=== PATIENT | male | born 1935 | race Caucasian/White ===

== ENCOUNTER 2016-07-01 10:06 | Inpatient (IN) | payer MEDICARE, OTHER, MEDICAID ==
[~2016-07-01] VITALS: Ht 172.7 cm; Wt 73.0 kg
[2016-07-01] VITALS (7 sets, daily range): BP systolic 122–174; BP diastolic 49–79
[2016-07-01] MEDS ORDERED: MILK OF MA2400 MG/10 ORAL (10:58)
[2016-07-01] MEDS ORDERED: BISACODYL5 MG ORAL (10:58)
[2016-07-01 11:03] LABS: APPEARANCE,URINE CLEAR; KETONES,URINE 4+ (NEGATIVE); LEUKOCYTE ESTERASE ,URINE 2+ (NEGATIVE); NITRITE,URINE NEGATIVE (NEGATIVE); PH,URINE 6.5 (4.5-8.0); PROTEIN,URINE 1+ (NEGATIVE); UROBILINOGEN,URINE NORMAL MG/DL (0.0-1.0)
[2016-07-01] MEDS ORDERED: ASPIR 8181 MG ORAL (11:05)
[2016-07-01] MEDS ORDERED: PLAVIX75 MG ORAL (11:05)
[2016-07-01] MEDS ORDERED: FAMOTIDINE20 MG ORAL (11:05)
[2016-07-01] MEDS ORDERED: PROBIOTIC ACID1 EAC3 PO (11:05)
[2016-07-01 11:07] LABS: BASOPHILS % (AUTO) 0.6 % (0.0-2.0); EOSINOPHILS % (AUTO) 1.8 % (0.0-3.0); LYMPHOCYTES % (AUTO) 11.6 % (20.0-45.0); MEAN CORPUSCULAR HEMOGLOBIN 30.4 PG (27.0-31.0); MEAN CORPUSCULAR VOLUME 89 FL (80-99); MONOCYTES % (AUTO) 3.7 % (1.0-10.0); NEUTROPHILS % (AUTO) 82.3 % (45.0-75.0); PLATELET COUNT 251 K/UL (150-450); RED CELL DISTRIBUTION WIDTH 12.9 % (11.6-14.8); WHITE BLOOD COUNT 12.8 K/UL (4.8-10.8)
[2016-07-01] MEDS ORDERED: LEVEMIR100 UNIT/1 SUBQ (11:07)
[2016-07-01] MEDS ORDERED: LEVAQUIN750 MG ORAL (11:07)
[2016-07-01] MEDS ORDERED: LATANOPROST2.5 ML BOTH EYES (11:07)
[2016-07-01] MEDS ORDERED: MULTIVITAMINS1 EAC2 ORAL (11:09)
[2016-07-01] MEDS ORDERED: METOPROLOL SUCC25 MG ORAL (11:09)
[2016-07-01] MEDS ORDERED: ZOFRAN4 M3 ORAL (11:09)
[2016-07-01] MEDS ORDERED: MIRTAZAPINE15 MG ORAL (11:09)
[2016-07-01] MEDS ORDERED: TAMSULOSIN HCL0.4 MG ORAL (11:09)
[2016-07-01] MEDS ORDERED: LISINOPRIL10 MG ORAL (11:09)
[2016-07-01] MEDS ORDERED: TYLENOL EXTRA500 MG ORAL (11:09)
[2016-07-01] MEDS ORDERED: ATORVASTATIN CA80 MG ORAL (11:09)
[2016-07-01 11:14] LABS: BACTERIA,URINE FEW /HPF; SQUAMOUS EPITHELIAL CELL,UR OCCASIONAL /LPF (NONE/OCC); WBC,URINE 20-30 /HPF (0 - 0)
[2016-07-01 11:15] LABS: ALANINE AMINOTRANSFERASE 7 U/L (3-41); ALBUMIN/GLOBULIN RATIO 0.7 (1.0-2.7); ANION GAP 18 (5-15); ASPARTATE AMINO TRANSFERASE 24 U/L (5-40); CALCIUM 8.8 mg/dL (8.6-10.2); CARBON DIOXIDE 27 mEQ/L (20-30); CHLORIDE 97 mEQ/L (98-107); CREATININE 0.7 mg/dL (0.7-1.2); HEMOLYSIS 51; POTASSIUM 3.7 mEQ/L (3.4-4.9); SODIUM 142 mEQ/L (135-145); TOTAL PROTEIN 6.5 g/dL (6.6-8.7); TROPONIN I < 0.30 ng/mL (<=0.30)
[2016-07-01 11:25] LABS: CKMB 2.4 ng/mL (< 6.7)
--- NOTE | 2016-07-01 11:30 | Emergency Room Report ---
History of Present Illness General Chief Complaint: Abnormal Labs Source: Patient, Medical Record Present Illness HPI Patient is a 81-year-old male who is brought in by ambulance after abnormal laboratory values. Patient recently been treated for a prostate infection. Patient was noted to have elevated white blood count was sent in for further evaluation. Patient normally resides in a detention the patient has some baseline dementia and history markedly limited by patient's poor mental status. Allergies: Coded Allergies: No Known Allergies (Unverified , 07/01/16) Patient History Reviewed Nursing Documentation: PMH: Agreed, PSxH: Agreed Nursing Documentation-PMH Past Medical History: No History, Except For Hx Cardiac Problems: Yes - prostatic abcess, bacteremia 2 Review of Systems All Other Systems: limited - by mental statu Physical Exam Vital Signs Date Time Temp Pulse Resp B/P Pulse Ox O2 Delivery O2 Flow Rate FiO2 07/01/16 10:08 97.5 82 16 148/64 95 Room Air Sp02 EP Interpretation: reviewed, normal General Appearance: normal inspection, well appearing, no apparent distress, alert, non-toxic Head: atraumatic ENT: normal ENT inspection, hearing grossly normal, normal voice Neck: normal inspection, full range of motion, supple, no bony tend Respiratory: normal inspection, lungs clear, normal breath sounds, no respiratory distress, no retraction, no wheezing Cardiovascular #1: regular rate, rhythm, no edema Gastrointestinal: normal inspection, normal bowel sounds, non tender, soft, no guarding, no hernia Genitourinary: no CVA tenderness Musculoskeletal: normal inspection, back normal, normal range of motion Neurologic: normal inspection, alert, responsive, swedish masseuse III-XII nml as tested, speech normal, motor weakness - bilateral lower extremity, sensory deficit Psychiatric: normal inspection, judgement/insight normal, mood/affect normal Skin: other - ulcers to both leg, left heal ulcer dark Medical Decision Making Diagnostic Impression: Primary Impression: Urinary tract infection Additional Impressions: Prostatic disease Failure to thrive ER Course The patient presented for decreased oral intake as well as abnormal lab value. The differential diagnosis included was not limited to a recurrent infection, CVA, others. The patient had recently been treated with IV Levaquin for prostatic abscess. Because of complexity of patient's case laboratory testing and imaging studies were ordered. The patient was noted to have elevated white blood count on laboratory testing. EKG interpreted by me showed normal sinus rhythm with a rate of [address] EKG interpreted by me showed anteroseptal T-wave inversion. Laboratory testing was notable for elevated white blood count. The patient started on IV antibiotics. This was noted to have a prolonged QT interval and antibiotics and subsequently changed to RocephinDr. Belem was contacted for Dr. Torres for inpatient management. Labs Test 07/01/16 10:40 White Blood Count 12.8 K/UL (4.8-10.8) Red Blood Count 4.20 M/UL (4.70-6.10) Hemoglobin 12.8 G/DL (14.2-18.0) Hematocrit 37.6 % (42.0-52.0) Mean Corpuscular Volume 89 FL (80-99) Mean Corpuscular Hemoglobin 30.4 PG (27.0-31.0) Mean Corpuscular Hemoglobin Concent 34.0 G/DL (32.0-36.0) Red Cell Distribution Width 12.9 % (11.6-14.8) Platelet Count 251 K/UL (150-450) Mean Platelet Volume 8.0 FL (6.5-10.1) Neutrophils (%) (Auto) 82.3 % (45.0-75.0) Lymphocytes (%) (Auto) 11.6 % (20.0-45.0) Monocytes (%) (Auto) 3.7 % (1.0-10.0) Eosinophils (%) (Auto) 1.8 % (0.0-3.0) Basophils (%) (Auto) 0.6 % (0.0-2.0) Urine Color Pale yellow Urine Appearance Clear Urine pH 6.5 (4.5-8.0) Urine Specific [place] 1.010 (1.005-1.035) Urine Protein 1+ (NEGATIVE) Urine Glucose (UA) Negative (NEGATIVE) Urine Ketones 4+ (NEGATIVE) Urine Occult Blood 1+ (NEGATIVE) Urine Nitrite Negative (NEGATIVE) Urine Bilirubin Negative (NEGATIVE) Urine Urobilinogen Normal MG/DL (0.0-1.0) Urine Leukocyte Esterase 2+ (NEGATIVE) Urine RBC 2-4 /HPF (0 - 0) Urine WBC 20-30 /HPF (0 - 0) Urine Squamous Epithelial Cells Occasional /LPF Urine Bacteria Few /HPF (NONE) Sodium Level 142 mEQ/L (135-145) Potassium Level 3.7 mEQ/L (3.4-4.9) Chloride Level 97 mEQ/L (98-107) Carbon Dioxide Level 27 mEQ/L (20-30) Anion Gap 18 (5-15) Blood Urea Nitrogen 11 mg/dL (7-23) Creatinine 0.7 mg/dL (0.7-1.2) Estimat Glomerular Filtration Rate mL/min (>60) Glucose Level 110 mg/dL (74-106) Lactic Acid Level 1.30 mmol/L (0.66-2.22) Calcium Level 8.8 mg/dL (8.6-10.2) Total Bilirubin 0.8 mg/dL (0.0-1.2) Aspartate Amino Transf (AST/SGOT) 24 U/L (5-40) Alanine Aminotransferase (ALT/SGPT) 7 U/L (3-41) Alkaline Phosphatase 104 U/L (40-129) Total Creatine Kinase 25 U/L (38-174) Creatine Kinase MB 2.4 ng/mL (< 6.7) Creatine Kinase MB Relative Index 9.6 Troponin I < 0.30 ng/mL (<=0.30) Total Protein 6.5 g/dL (6.6-8.7) Albumin 2.7 g/dL (3.5-5.2) Globulin 3.8 g/dL Albumin/Globulin Ratio 0.7 (1.0-2.7) Last Vital Signs Date Time Temp Pulse Resp B/P Pulse Ox O2 Delivery O2 Flow Rate FiO2 07/01/16 11:13 97.5 70 21 152/56 95 Room Air Status: unchanged Disposition: ADMITTED INPATIENT Condition: Serious Referrals: TANYA FARMER (PCP) Anders Kaufman Jul 01, 2016 11:30
--- NOTE | 2016-07-01 11:42 | Diagnostic Imaging Report ---
Clinical history: Shortness of breath Technique: Portable AP chest radiograph was obtained. Comparison: None Findings: Lung volumes are low with probable basilar atelectasis. There is borderline cardiomegaly with interstitial and perihilar opacities reflecting mild pulmonary edema. Trace effusions may be present. There is no clinically significant pneumothorax. Osseous structures appear grossly unremarkable. Impression: 1. Borderline cardiomegaly with suspected mild pulmonary edema and trace effusions. 2. Low lung volumes with probable basilar atelectasis.
[2016-07-01] MEDS ORDERED: cefTRIAXone 1 GM in NS 55 ML IVPB ONE (14:15)
[2016-07-01] MEDS ORDERED: DuoNeb 0.5-3(2.5)mg/3ml neb HHN PRN (16:15)
[2016-07-01] MEDS ORDERED: Miralax 17gm pkt ORAL PRN (16:15)
--- NOTE | 2016-07-01 16:39 | History and Physical ---
History of Present Illness General Date patient seen: Jul 02, 2016 Time patient seen: 16:39 Reason for Hospitalization: Abnormal Labs, poor PO intake, nausea, lethargy Present Illness HPI 81y/o male with pmh of CVA, DM, GERD, HTN, PVD, recent prostate abscess s/p IR drainage 06/23 c/b bacteremia 2/2 Klebsiella (on Cipro PO at [facility]) who presented to the hospital from SNF with lethargy, nausea, poor PO intake and abnormal labs. Pt recently admitted to [facility] 06/20-06/27 for severe sepsis 2/2 prostate abscess c/b Klebisella bacteremia. He underwent transrectal guided aspiration of the prostatic abscess on 06/23/16 and 10cc of tenacious fluid was aspirated that grew K pna and Enterococcus. Blood cultures grew 4/4 bottles w/ Klebsiella sensitive to cipro, bactrim, ceftriaxone. Pt was on cipro IV at [facility] and then transitioned to cipro PO on d/c to complete 2 weeks of antibiotics. Pt was d/c' d with new. Pt was noted to to be increasingly lethargic over the past few days and was not eating per SNF staff. He also c/o nausea. Labs done noteable for WBC 17. In ED, pt's WBC was 12.8 and she was noted to have EKG with QT prolongation. She was given ceftriaxone 1g in ED. Allergies: Coded Allergies: No Known Allergies (Unverified , 07/01/16) Medication History Scheduled Aspirin* (Aspir 81*), 81 MG ORAL DAILY, (Reported) Atorvastatin Calcium* (Lipitor*), 80 MG ORAL BEDTIME, (Reported) Clopidogrel Bisulfate* (Plavix*), 75 MG ORAL DAILY, (Reported) Famotidine (Famotidine), 20 MG ORAL DAILY, (Reported) Insulin Detemir (Levemir), 18 UNITS SUBQ BEDTIME, (Reported) Lactobacillus Acidophilus (Probiotic Acidophilus), 1 EACH PO DAILY, (Reported) Latanoprost* (Xalatan*), 1 DROP BOTH EYES BEDTIME, (Reported) Lisinopril* (Lisinopril*), 10 MG ORAL DAILY, (Reported) Metoprolol Succinate* (Metoprolol Succinate*), 25 MG ORAL DAILY, (Reported) Mirtazapine* (Remeron*), 15 MG ORAL BEDTIME, (Reported) Multivitamins* (Multivitamins*), 1 TAB ORAL DAILY, (Reported) Tamsulosin Hcl (Tamsulosin Hcl*), 0.4 MG ORAL BEDTIME, (Reported) Scheduled PRN Acetaminophen* (Tylenol Extra Strength*), 650 MG ORAL Q6H PRN for Mild Pain/ Temp > 100.5, (Reported) Bisacodyl* (Dulcolax*), 10 MG ORAL ONCE PRN for Constipation, (Reported) Magnesium Hydroxide* (Milk Of Magnesia*), 30 ML ORAL DAILY PRN for Constipation, (Reported) Ondansetron* (Zofran*), 4 MG ORAL Q6H PRN for Nausea & Vomiting, (Reported) Discontinued Medications Levofloxacin* (Levaquin*), 750 MG ORAL DAILY, (Reported) Discontinued Reason: MD discontinued med Patient History History Provided By: Family Member Healthcare decision maker DPOA is niece Resuscitation status Advanced Directive on File Past Medical/Surgical History Past Medical/Surgical History: (1) CAD (coronary artery disease) (2) Percutaneous transluminal coronary angioplasty (PTCA) within last 14 to 24 months (3) NSTEMI (non-ST elevated myocardial infarction) (4) Diabetes mellitus (5) PVD (peripheral vascular disease) (6) CVA (cerebral vascular accident) (7) Prostate abscess (8) Bacteremia due to Klebsiella pneumoniae (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 Social History Social History: (1) Resides in senior care facility Review of Systems Constitutional: Reports: weakness ENT: Reports: no symptoms Respiratory: Reports: no symptoms Cardiovascular: Reports: no symptoms Gastrointestinal: Reports: nausea Genitourinary: Reports: no symptoms Musculoskeletal: Reports: no symptoms Skin: Reports: no symptoms Psychiatric: Reports: no symptoms Neurological: Reports: no symptoms Endocrine: Reports: no symptoms Hematologic/Lymphatic: Reports: no symptoms Physical Exam Physical Exam Narrative General: alert, cooperative, no distress, appears stated age, lethargic Head: normocephalic, without obvious abnormality, atraumatic Eyes: conjunctivae/corneas clear. PERRL, EOM's intact Throat: lips, mucosa, and tongue normal. MMM Neck: supple, symmetrical, trachea midline, and no JVD Lungs: clear to auscultation bilaterally Heart: regular rate and rhythm, S1, S2 normal, no murmur, click, rub or gallop Abdomen: soft, non-tender, non-distended, bowel sounds normal; no masses or organomegaly Extremities: Warm, well-perfused. L heel eschar, dry, no surrounding erythema. R hallux eschar, dry, no erythema. R foot weak biphasic DP, moderate biphasic PT; L foot triphasic DP, biphasic PT Skin: skin color, texture, turgor normal; no rashes or lesions Neurologic: grossly normal, no focal deficits Last 24 Hour Vital Signs Date Time Temp Pulse Resp B/P Pulse Ox O2 Delivery O2 Flow Rate FiO2 07/01/16 15:09 97.3 80 20 145/62 98 Room Air 07/01/16 12:40 97.5 76 20 174/66 98 Room Air 07/01/16 11:13 97.5 70 21 152/56 95 Room Air 07/01/16 10:08 97.5 82 16 148/64 95 Room Air Laboratory Tests Test 07/01/16 10:40 White Blood Count 12.8 K/UL (4.8-10.8) H Red Blood Count 4.20 M/UL (4.70-6.10) L Hemoglobin 12.8 G/DL (14.2-18.0) L Hematocrit 37.6 % (42.0-52.0) L Mean Corpuscular Volume 89 FL (80-99) Mean Corpuscular Hemoglobin 30.4 PG (27.0-31.0) Mean Corpuscular Hemoglobin Concent 34.0 G/DL (32.0-36.0) Red Cell Distribution Width 12.9 % (11.6-14.8) Platelet Count 251 K/UL (150-450) Mean Platelet Volume 8.0 FL (6.5-10.1) Neutrophils (%) (Auto) 82.3 % (45.0-75.0) H Lymphocytes (%) (Auto) 11.6 % (20.0-45.0) L Monocytes (%) (Auto) 3.7 % (1.0-10.0) Eosinophils (%) (Auto) 1.8 % (0.0-3.0) Basophils (%) (Auto) 0.6 % (0.0-2.0) Urine Color Pale yellow Urine Appearance Clear Urine pH 6.5 (4.5-8.0) Urine Specific [place] 1.010 (1.005-1.035) Urine Protein 1+ (NEGATIVE) H Urine Glucose (UA) Negative (NEGATIVE) Urine Ketones 4+ (NEGATIVE) H Urine Occult Blood 1+ (NEGATIVE) H Urine Nitrite Negative (NEGATIVE) Urine Bilirubin Negative (NEGATIVE) Urine Urobilinogen Normal MG/DL (0.0-1.0) Urine Leukocyte Esterase 2+ (NEGATIVE) H Urine RBC 2-4 /HPF (0 - 0) H Urine WBC 20-30 /HPF (0 - 0) H Urine Squamous Epithelial Cells Occasional /LPF Urine Bacteria Few /HPF (NONE) Sodium Level 142 mEQ/L (135-145) Potassium Level 3.7 mEQ/L (3.4-4.9) Chloride Level 97 mEQ/L (98-107) L Carbon Dioxide Level 27 mEQ/L (20-30) Anion Gap 18 (5-15) H Blood Urea Nitrogen 11 mg/dL (7-23) Creatinine 0.7 mg/dL (0.7-1.2) Estimat Glomerular Filtration Rate mL/min (>60) Glucose Level 110 mg/dL (74-106) H Lactic Acid Level 1.30 mmol/L (0.66-2.22) Calcium Level 8.8 mg/dL (8.6-10.2) Total Bilirubin 0.8 mg/dL (0.0-1.2) Aspartate Amino Transf (AST/SGOT) 24 U/L (5-40) Alanine Aminotransferase (ALT/SGPT) 7 U/L (3-41) Alkaline Phosphatase 104 U/L (40-129) Total Creatine Kinase 25 U/L (38-174) L Creatine Kinase MB 2.4 ng/mL (< 6.7) Creatine Kinase MB Relative Index 9.6 Troponin I < 0.30 ng/mL (<=0.30) Total Protein 6.5 g/dL (6.6-8.7) L Albumin 2.7 g/dL (3.5-5.2) L Globulin 3.8 g/dL Albumin/Globulin Ratio 0.7 (1.0-2.7) L Height (Feet): 5 Height (Inches): 8.00 Weight (Pounds): 161 Medications Current Medications Medications (Trade) Dose Ordered Sig/Jose Armando Route PRN Reason Start Time Stop Time Status Last Admin Dose Admin Albuterol/ Ipratropium (DuoNeb 0.5-3(2.5)mg/3ml) 3 ml Q4H PRN HHN Shortness of Breath 07/01/16 16:15 07/06/16 16:14 UNV Bisacodyl (Dulcolax) 10 mg HSPRN PRN RECTAL Constipation 07/01/16 16:15 07/31/16 16:14 UNV Dextrose (Dextrose 50%) STAT PRN IV Hypoglycemia 07/01/16 16:15 07/31/16 16:14 UNV Docusate Sodium (Colace) 100 mg EVERY 12 HOURS ORAL 07/01/16 21:00 07/31/16 20:59 UNV Ondansetron HCl (Zofran) 4 mg Q6H PRN IVP Nausea & Vomiting 07/01/16 16:15 07/31/16 16:14 UNV Polyethylene Glycol (Miralax) 17 gm HSPRN PRN ORAL Constipation 07/01/16 16:15 07/31/16 16:14 UNV Assessment/Plan Problem List: (1) Sepsis ICD Codes: A41.9 - Sepsis, unspecified organism SNOMED: 37557913 (2) Prostate abscess ICD Codes: N41.2 - Abscess of prostate SNOMED: 9331150 (3) Bacteremia due to Klebsiella pneumoniae ICD Codes: R78.81 - Bacteremia SNOMED: 600707591, 396941312932 (4) Failure to thrive SNOMED: 57372162 (5) Toxic metabolic encephalopathy ICD Codes: G92 - Toxic encephalopathy SNOMED: 999621468 (6) CAD (coronary artery disease) ICD Codes: I25.10 - Atherosclerotic heart disease of [place] coronary artery without angina pectoris SNOMED: 58061898 (7) Percutaneous transluminal coronary angioplasty (PTCA) within last 14 to 24 months ICD Codes: Z98.61 - Coronary angioplasty status SNOMED: 758298049 (8) Diabetes mellitus ICD Codes: E11.9 - Type 2 diabetes mellitus without complications SNOMED: 41076119 Qualifiers: (9) 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 ICD Codes: L97.423 - Non-pressure 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 SNOMED: 372386137, 593614729, 825963322 Status: stable Assessment/Plan Possibly worsening symptoms and leukocytosis as pt with poor PO intake and nausea, possibly was not taking cipro PO Admit to inpatient ID Consult Stop Cipro given QT prolongation and pt c/o nausea w/ cipro PO Start ceftriaxone 2g q24h (07/02-) Consider re-imaging if pt clinically deteriorates Cont SNF meds: ASA, plavix, statin, lisinopril, MTP Forestry Pilot consult EXAMINER RATING CLERK eval Monitor mental status closely DVT Prophylaxis: SCD, HSQ Code Status: Full Hospital Classification Declaration: Based on this initial evaluation, and depending on the patient's clinical course, I anticipate that this patient will require hospitalization for 2-3 days for sepsis, AMS, and close respiratory/ hemodynamic monitoring. Disposition: Once the patient is stable to leave the hospital, I anticipate the patient will likely be discharged to the following environment: back to SNF I spent 70 minutes on this patient's case, and 38 minutes were dedicated to counseling and/or care coordination. Discussed with patient/family, nursing staff, SW/CM, ID regarding clinical status, treatment course, and disposition planning. Time of note may not reflect time of encounter. Bharat Castle M.D. Jul 01, 2016 16:39
[2016-07-01] MEDS: Docusate 100mg tablet ORAL SCH (21:50)
[2016-07-01] MEDS: Tamsulosin 0.4mg cap ORAL SCH (21:51)
[2016-07-01] MEDS: Atorvastatin 80mg tab ORAL SCH (21:51)
[2016-07-01] MEDS: NovoLOG Insulin Flexpen SUBQ SCH (22:34)
[2016-07-02] VITALS: BP 143/73
[2016-07-02 04:00] VITALS: BP 149/70
[2016-07-02] MEDS: NovoLOG Insulin Flexpen SUBQ SCH ×4 (05:52→21:00)
[2016-07-02 08:00] VITALS: BP 120/59
[2016-07-02 08:21] LABS: ANION GAP 19 (5-15); CALCIUM 8.5 mg/dL (8.6-10.2); CARBON DIOXIDE 24 mEQ/L (20-30); CHLORIDE 99 mEQ/L (98-107); CREATININE 0.7 mg/dL (0.7-1.2); HEMOLYSIS 16; MAGNESIUM 1.8 mg/dL (1.7-2.5); POTASSIUM 3.2 mEQ/L (3.4-4.9); SODIUM 142 mEQ/L (135-145)
[2016-07-02 09:02] LABS: BASOPHILS % (AUTO) 0.4 % (0.0-2.0); EOSINOPHILS % (AUTO) 2.5 % (0.0-3.0); LYMPHOCYTES % (AUTO) 12.4 % (20.0-45.0); MEAN CORPUSCULAR HEMOGLOBIN 30.2 PG (27.0-31.0); MEAN CORPUSCULAR HGB CONC 33.9 G/DL (32.0-36.0); MEAN CORPUSCULAR VOLUME 89 FL (80-99); MEAN PLATELET VOLUME 8.2 FL (6.5-10.1); MONOCYTES % (AUTO) 4.3 % (1.0-10.0); NEUTROPHILS % (AUTO) 80.3 % (45.0-75.0); PLATELET COUNT 258 K/UL (150-450); RED BLOOD COUNT 3.83 M/UL (4.70-6.10); WHITE BLOOD COUNT 10.6 K/UL (4.8-10.8)
[2016-07-02] MEDS: Docusate 100mg tablet ORAL SCH ×2 (10:30→21:08)
[2016-07-02] MEDS: Aspirin EC 81mg tab ORAL SCH (10:30)
[2016-07-02] MEDS: Lisinopril 10mg tab ORAL SCH (10:31)
[2016-07-02 12:00] VITALS: BP 139/62
--- NOTE | 2016-07-02 15:18 | Infectious Diseases Prog Note ---
Assessment/Plan Assessment/Plan Full consult dictated: A) 1) klebsiella prostate abscess and bacteremia 2) high likelihood of underlying bacterial prostatitis 3) sepsis, leukocytosis, ? uti, + ua but urine culture negative, ftt, encephalopathy 4) cad, dementia, stent, htn, dm, anemia 5) allergies - negative, fh-nc, mar noted, notes and records reviewed 6) d/w RN P) 1) continue ceftriaxone for now (patient was on po cipro but had QT prolongation and held) 2) will review records at [facility] 3) continue treatment per Dr. Nicholson 4) check labs and surveillance blood cultures 5) orders entered and noted 6) d/w Dr. Nicholson 7) thank you Subjective Allergies: Coded Allergies: No Known Allergies (Unverified , 07/01/16) Objective Vital Signs Last 24 Hour Vital Signs Date Time Temp Pulse Resp B/P Pulse Ox O2 Delivery O2 Flow Rate FiO2 07/02/16 12:00 97.9 90 20 139/62 94 Room Air 07/02/16 10:31 89 140/63 07/02/16 10:31 140/63 07/02/16 08:00 97.5 87 19 120/59 97 Room Air 07/02/16 04:00 98.6 84 18 149/70 97 Room Air 07/02/16 00:00 97.7 88 20 143/73 97 Room Air 07/01/16 23:08 97.7 96 16 159/79 98 Room Air 07/01/16 22:11 97.3 76 15 122/49 98 Room Air 76 07/01/16 22:10 97.3 72 15 129/69 98 Room Air 07/01/16 20:11 97.3 76 15 122/49 98 Room Air 76 07/01/16 17:19 97.3 76 12 152/64 98 Room Air 69 07/01/16 15:09 97.3 80 20 145/62 98 Room Air Height (Feet): 5 Height (Inches): 8.00 Weight (Pounds): 161 Microbiology Date/Time Source Procedure Growth Status 07/01/16 10:40 Urine,Clean Catch Urine Culture - Preliminary NO GROWTH Resulted Laboratory Tests Test 07/02/16 05:35 07/02/16 08:35 Sodium Level 142 mEQ/L (135-145) Potassium Level 3.2 mEQ/L (3.4-4.9) L Chloride Level 99 mEQ/L (98-107) Carbon Dioxide Level 24 mEQ/L (20-30) Anion Gap 19 (5-15) H Blood Urea Nitrogen 9 mg/dL (7-23) Creatinine 0.7 mg/dL (0.7-1.2) Estimat Glomerular Filtration Rate mL/min (>60) Glucose Level 79 mg/dL (74-106) Calcium Level 8.5 mg/dL (8.6-10.2) L Magnesium Level 1.8 mg/dL (1.7-2.5) White Blood Count 10.6 K/UL (4.8-10.8) Red Blood Count 3.83 M/UL (4.70-6.10) L Hemoglobin 11.6 G/DL (14.2-18.0) L Hematocrit 34.2 % (42.0-52.0) L Mean Corpuscular Volume 89 FL (80-99) Mean Corpuscular Hemoglobin 30.2 PG (27.0-31.0) Mean Corpuscular Hemoglobin Concent 33.9 G/DL (32.0-36.0) Red Cell Distribution Width 13.0 % (11.6-14.8) Platelet Count 258 K/UL (150-450) Mean Platelet Volume 8.2 FL (6.5-10.1) Neutrophils (%) (Auto) 80.3 % (45.0-75.0) H Lymphocytes (%) (Auto) 12.4 % (20.0-45.0) L Monocytes (%) (Auto) 4.3 % (1.0-10.0) Eosinophils (%) (Auto) 2.5 % (0.0-3.0) Basophils (%) (Auto) 0.4 % (0.0-2.0) Current Medications Medications (Trade) Dose Ordered Sig/Jose Armando Route PRN Reason Start Time Stop Time Status Last Admin Dose Admin Acetaminophen (Tylenol) 650 mg Q6H PRN ORAL Mild Pain/Temp > 100.5 07/01/16 16:45 07/31/16 16:44 Albuterol/ Ipratropium (DuoNeb 0.5-3(2.5)mg/3ml) 3 ml Q4H PRN HHN Shortness of Breath 07/01/16 16:15 07/06/16 16:14 Aspirin (Ecotrin) 81 mg DAILY ORAL 07/02/16 09:00 08/01/16 08:59 07/02/16 10:30 Atorvastatin Calcium (Lipitor) 80 mg BEDTIME ORAL 07/01/16 21:00 07/31/16 20:59 07/01/16 21:51 Bisacodyl (Dulcolax) 10 mg HSPRN PRN RECTAL Constipation Second Line Agent 07/01/16 16:15 07/31/16 16:14 Ceftriaxone Sodium 1 gm/ Sodium Chloride 55 ml @ 110 mls/hr Q24HRS IVPB 07/02/16 16:00 07/08/16 15:59 Clopidogrel Bisulfate (Plavix) 75 mg DAILY ORAL 07/02/16 09:00 08/01/16 08:59 07/02/16 10:30 Dextrose STAT PRN IV Hypoglycemia 07/01/16 17:00 07/31/16 16:59 Docusate Sodium (Colace) 100 mg EVERY 12 HOURS ORAL 07/01/16 21:00 07/31/16 20:59 07/02/16 10:30 Insulin Aspart (NovoLOG) BEFORE MEALS AND HS SUBQ 07/01/16 22:00 07/31/16 21:59 Latanoprost (Xalatan) 1 drop BEDTIME BOTH EYES 07/01/16 22:00 07/31/16 21:59 07/01/16 22:34 Lisinopril (Zestril) 10 mg DAILY ORAL 07/02/16 09:00 08/01/16 08:59 07/02/16 10:31 Metoprolol Succinate (Toprol XL) 25 mg DAILY ORAL 07/02/16 09:00 08/01/16 08:59 07/02/16 10:31 Mirtazapine (Remeron) 15 mg BEDTIME ORAL 07/01/16 21:00 07/31/16 20:59 07/01/16 21:50 Multivitamins (Multivitamins) 1 tab DAILY ORAL 07/02/16 09:00 08/01/16 08:59 07/02/16 10:30 Ondansetron HCl (Zofran) 4 mg Q6H PRN IVP Nausea & Vomiting 07/01/16 16:15 07/31/16 16:14 Pantoprazole (Protonix) 40 mg ACBREAKFAST ORAL 07/02/16 06:30 08/01/16 06:29 07/02/16 05:52 Polyethylene Glycol (Miralax) 17 gm HSPRN PRN ORAL Constipation First Line Agent 07/01/16 16:15 07/31/16 16:14 Potassium Chloride (KCl 10mEq/100ml Premix) 100 ml @ 100 mls/hr Q1H IVPB 07/02/16 15:00 07/02/16 18:59 07/02/16 15:02 Tamsulosin HCl (Flomax) 0.4 mg BEDTIME ORAL 07/01/16 21:00 07/31/16 20:59 07/01/16 21:51 ARLIN TRIANA Jul 02, 2016 15:18
[2016-07-02 16:00] VITALS: BP 143/60
[2016-07-02] MEDS ORDERED: cefTRIAXone 1 GM in NS 55 ML IVPB SCH (16:00)
[2016-07-02 16:48] VITALS: BP 143/60
[2016-07-02] MEDS: Atorvastatin 80mg tab ORAL SCH (21:08)
[2016-07-02] MEDS: Tamsulosin 0.4mg cap ORAL SCH (21:08)
[2016-07-03] VITALS: BP 150/67
--- NOTE | 2016-07-03 02:19 | Consultation ---
DATE OF CONSULTATION: 07/02/2016 INFECTIOUS DISEASE CONSULTATION CONSULTING PHYSICIAN: Monique Nielson M.D. ATTENDING PHYSICIAN: Jacinda Lozano M.D. I was asked by Dr. Nicholson, Dr. Lozano's associate to see this patient. REASON FOR CONSULTATION: Possible sepsis, leukocytosis, history of Klebsiella, prostate, abscess, and bacteremia. CHIEF COMPLAINT: Sepsis. HISTORY OF PRESENT ILLNESS: This is an 81-year-old male, who was at [facility] and had a Klebsiella bacteremia and prostate abscess treated. I do not have any further records, but in discussion with Dr. Nicholson, the patient had drainage of the abscess by Interventional Radiology. The patient was sent to a jail on Cipro. The patient was then admitted to [facility] with failure to thrive, encephalopathy, and sepsis. The patient's white count was elevated at 12.8. He had altered mental status, encephalopathy, and failure to thrive. Infectious Disease consultation was requested for further antibiotic management for this patient. The patient had a positive urinalysis but urine culture was negative. However, he was on antibiotics prior to admission. The patient was on Cipro, this was discontinued because of QT prolongation and was switched to Rocephin, also in response to discussion with Dr. Nicholson. Infectious Disease consultation was requested for further antibiotic management. MAR was noted. Orders were noted. Notes were reviewed. Case was discussed with RN also. REVIEW OF SYSTEMS: Constitutional: The patient has a Heart. I do not believe he has a central line. He has generalized weakness and fatigue. No fevers or chills. He has failure to thrive. Decreased oral intake and encephalopathy. Head And Neck: No thrush or dysphagia. Cardiac: No chest pain. Gastrointestinal: No nausea, vomiting, or diarrhea. Genitourinary: He has a Heart. Pulmonary: No congestion or shortness of breath. Skin: No rash or itching. Extremities: No extremity pain. Neurologic: No seizures. PAST MEDICAL HISTORY: The patient's past medical history includes the following: The patient has a past medical history of Klebsiella prostate abscess and bacteremia status post drainage. He has a history of CAD, history of stent placement, history of dementia, history of hypertension, history of diabetes, history of anemia. Please see past medical history in medical order. He has a history of hyperlipidemia also, but I am not sure of this. ALLERGIES: No known drug allergies. FAMILY HISTORY: Noncontributory. Negative for exposure to tuberculosis or cancer. SOCIAL HISTORY: Past smoker, but does not smoke now. No alcohol or drug abuse. MEDICATIONS: Upon reviewing the MAR, the patient is on the following medications: He is on Rocephin, potassium chloride, aspirin, Plavix, Zestril, metoprolol, multivitamins, Protonix, Xalatan, NovoLog insulin. He is on Colace, Lipitor, Remeron, Flomax, Tylenol, albuterol treatment, bisacodyl, Colace, MiraLAX, and Zofran. Please see medications in the medical order. PHYSICAL EXAMINATION: VITAL SIGNS: Temperature 97.9 degrees, pulse rate 90, respiratory rate 20, blood pressure 139/62 and saturation 94%. Pulse rate has been as high as 96, respiratory rate as high as 21. GENERAL: Alert and responsive. Generalized weakness noted. HEAD AND NECK: Oral exam, no thrush. Eye exam, no icterus. Neck is supple. No JVD. No sinus tenderness. Normocephalic. No facial droop. No neck stiffness. HEART: Regular. No gallop or murmur. No friction or rub. LUNGS: Clear. Bilateral no rhonchi or rales. ABDOMEN: Soft. Positive bowel sounds. Nontender. SKIN: No rash or dermatitis. MUSCULOSKELETAL: No effusions or contractures. Legs are without cellulitis. PERIPHERAL VASCULAR: No cyanosis or gangrene. RECTAL: Deferred. GENITOURINARY: He has a Heart. Urine is slightly cloudy. LINES: Line sites are without phlebitis. NEUROLOGIC: Generalized weakness. Responsive. LABORATORY DATA: Laboratory as follows, creatinine 0.7, white count 10.6, hemoglobin 0.6, white count as high as 12.8. IMAGING STUDIES: Chest x-ray shows no evidence of pneumonia, shows edema and effusions. No consolidations. Shows atelectasis also. Blood cultures are pending. Urine cultures are negative. UA had 2+ leukocyte esterase, 20 to 30 white blood cells. Discussed with Dr. Nicholson outside blood cultures and Klebsiella, but I will review the records at [facility]. ASSESSMENT AND PLAN: 1. The patient has Klebsiella prostate abscess and bacteremia and likely sepsis with elevated white count, failure to thrive, encephalopathy. The patient was on Cipro, but this was discontinued because of QT prolongation and risk for arrhythmia. The patient will be placed on Rocephin 2 g IV q. 24 hours. I do not know how long the patient on antibiotics, but I think it has been at least one week. If he has underlying prostatitis, which is very likely, then the patient will need prolonged treatment of six weeks of therapy. We will give another week of IV Rocephin, so he could have at least two weeks of IV antibiotics especially in view of bacteremia and sepsis. Check urine and blood cultures. Continue Rocephin now. Check for all labs. Unclear if the patient has urinary tract infection. He has positive urinalysis and this could be related to prostatitis and he has been on antibiotics prior to urine culture. Again, with the prostate abscess, must consider underlying bacterial prostatitis also. 2. The patient has coronary artery disease. 3. Dementia. 4. Stent placement for coronary artery disease. 5. Hypertension. 6. Diabetes. 7. Anemia. 8. Hyperlipidemia. 9. No known allergies. 10. Past smoker. He has quit at this time. 11. Family history noncontributory. 12. MAR noted. 13. Case discussed with RN. 14. Notes were reviewed. 15. Case was discussed with Dr. Nicholson and consultants. Monique Nielson M.D. DR: STEPHANIE JOB#: [id number] CC:
[2016-07-03 04:00] VITALS: BP 146/60
[2016-07-03] MEDS: NovoLOG Insulin Flexpen SUBQ SCH ×4 (05:43→21:32)
[2016-07-03] MEDS: Docusate 100mg tablet ORAL SCH ×2 (11:06→21:26)
[2016-07-03] MEDS: Lisinopril 10mg tab ORAL SCH (11:07)
[2016-07-03] MEDS: Aspirin EC 81mg tab ORAL SCH (11:09)
[2016-07-03 11:34] VITALS: BP 130/55
--- NOTE | 2016-07-03 12:41 | Wound Care Consultation ---
Wound Assessment Wound Assessment #1: Wound Number: #1 Wound Present on Admission: Yes New Wound: No Status Change of Wound: No Wound Location Body Site Modif: left Wound Location Body Site: heel Wound Type: pressure ulcer Abi Test: Does not Abi Pressure Ulcer Stage: IV/unstageable Wound Thickness: Full Thickness Wound Length: 3.5 Wound Width: 4.5 Wound Depth: utd Percent of Wound Black/Brown: 100 Wound Drainage Amount: None Wound Drainage Odor: None/Absent Tissue Surrounding Wound: Erythemic Wound General Appearance: Reddened, Blackened, Necrotic Wound Assessment #2: Wound Number: #2 Wound Present on Admission: Yes New Wound: No Status Change of Wound: No Wound Location Body Site Modif: mid Wound Location Body Site: sacral Wound Type: pressure ulcer Abi Test: Does not Abi Pressure Ulcer Stage: deep tissue injury Wound Thickness: Full Thickness Wound Length: 4.0 Wound Width: 4.0 Wound Depth: utd Percent of Wound Hungry Horse/Red: 50 Percent of Wound Purple/Maroon: 50 Wound Drainage Amount: None Tissue Surrounding Wound: Erythemic - intact Wound General Appearance: Reddened Wound Assessment #3: Wound Number: #3 Wound Present on Admission: Yes New Wound: No Status Change of Wound: No Wound Location Body Site Modif: right Wound Location Body Site: sacral Wound Type: pressure ulcer Abi Test: Does not Abi Pressure Ulcer Stage: deep tissue injury Wound Thickness: Full Thickness Wound Length: 1.0 Wound Width: 3.0 Wound Depth: utd Percent of Wound Hungry Horse/Red: 50 Percent of Wound Purple/Maroon: 50 Wound Drainage Amount: None Wound Drainage Odor: None/Absent Tissue Surrounding Wound: Erythemic - intact Wound General Appearance: Reddened Wound Assessment #4: Wound Number: #4 Wound Present on Admission: Yes New Wound: No Status Change of Wound: No Wound Location Body Site Modif: left Wound Location Body Site: sacral Wound Type: pressure ulcer Abi Test: Does not Abi Pressure Ulcer Stage: deep tissue injury Wound Thickness: Full Thickness Wound Length: 4.0 Wound Width: 5.0 Wound Depth: utd Percent of Wound Hungry Horse/Red: 50 Percent of Wound Purple/Maroon: 50 Wound Drainage Amount: None Wound Drainage Odor: None/Absent Tissue Surrounding Wound: Erythemic - intact Wound General Appearance: Reddened Wound Assessment #5: Wound Number: #5 Wound Present on Admission: Yes New Wound: No Status Change of Wound: No Wound Location Body Site Modif: right Wound Location Body Site: heel Wound Type: pressure ulcer Abi Test: Does not Abi Pressure Ulcer Stage: IV/unstageable Wound Thickness: Full Thickness Wound Length: 0.3 Wound Width: 0.4 Wound Depth: utd Percent of Wound Black/Brown: 100 Other Colors Identified: surrounding tissue noted red in color. Wound Drainage Amount: None Wound Drainage Odor: None/Absent Tissue Surrounding Wound: Erythemic Wound General Appearance: Reddened, Necrotic Wound Assessment #6: Wound Number: #6 Wound Present on Admission: Yes New Wound: No Status Change of Wound: No Wound Location Body Site Modif: right Wound Location Body Site: toe - 1st toe Wound Type: vascular issue w/vascular changes Abi Test: Does not Abi Wound Thickness: Full Thickness Wound Length: 1.2 Wound Width: 1.5 Wound Depth: utd Percent of Wound Black/Brown: 100 Wound Drainage Amount: None Wound Drainage Odor: None/Absent Tissue Surrounding Wound: Erythemic Wound General Appearance: Reddened, Necrotic - dry Wound Assessment #7: Wound Number: #7 Wound Present on Admission: Yes New Wound: No Status Change of Wound: No Wound Location Body Site Modif: right, medial Wound Location Body Site: knee Wound Type: pressure ulcer Abi Test: Does not Abi Pressure Ulcer Stage: deep tissue injury - suspected Wound Thickness: Full Thickness Wound Length: 3.0 Wound Width: 2.5 Wound Depth: utd Percent of Wound Purple/Maroon: 100 Wound Drainage Amount: None Tissue Surrounding Wound: Intact Wound General Appearance: Reddened Wound Assessment #8: Wound Number: #8 Wound Present on Admission: Yes New Wound: No Status Change of Wound: No Wound Location Body Site Modif: left, medial Wound Location Body Site: knee Wound Type: pressure ulcer Abi Test: Does not Abi Pressure Ulcer Stage: deep tissue injury - suspected Wound Thickness: Full Thickness Wound Length: 3.0 Wound Width: 3.0 Wound Depth: utd Percent of Wound Purple/Maroon: 100 Wound Drainage Amount: None Wound Drainage Odor: None/Absent Tissue Surrounding Wound: Intact Wound General Appearance: Reddened Wound Assessment #9: Wound Number: #9 Wound Present on Admission: Yes New Wound: No Status Change of Wound: No Wound Location Body Site Modif: left Wound Location Body Site: ear Wound Type: other - open wound Abi Test: Does not Abi Wound Thickness: Partial Thickness Wound Length: 0.3 Wound Width: 0.3 Wound Depth: utd Percent of Wound Hungry Horse/Red: 100 Wound Drainage Description: Serosanguineous Wound Drainage Amount: Scant Wound Drainage Odor: None/Absent Tissue Surrounding Wound: Erythemic Wound General Appearance: Reddened Wound Assessment #10: Wound Number: #10 Wound Present on Admission: Yes New Wound: No Status Change of Wound: No Wound Location Body Site Modif: left Wound Location Body Site: toe - 3rd Wound Type: vascular issue w/vascular changes Abi Test: Does not Abi Wound Thickness: Full Thickness Wound Length: 0.8 Wound Width: 0.9 Wound Depth: utd Percent of Wound Black/Brown: 100 Wound Drainage Amount: None Wound Drainage Odor: None/Absent Tissue Surrounding Wound: Intact Wound General Appearance: Reddened, Blackened - thcik adhered black scab Wound Assessment #11: Wound Number: #11 Wound Present on Admission: Yes New Wound: No Status Change of Wound: No Wound Location Body Site Modif: right Wound Location Body Site: toe - 1st toenail Wound Type: vascular issue w/vascular changes Abi Test: Does not Abi Wound Thickness: Full Thickness Wound Length: 2.0 Wound Width: 2.0 Wound Depth: utd Percent of Wound Black/Brown: 100 - thick black adhered dry scab. Wound Drainage Amount: None Wound Drainage Odor: None/Absent Tissue Surrounding Wound: Intact Wound General Appearance: Reddened, Blackened - thick black scab. Wound Assessment #12: Wound Number: #12 Wound Present on Admission: Yes New Wound: No Status Change of Wound: No Wound Location Body Site Modif: left Wound Location Body Site: elbow Wound Type: other - redness Abi Test: Abi Wound Length: 5.0 Wound Width: 5.0 Percent of Wound Hungry Horse/Red: 100 Wound Drainage Amount: None Wound Drainage Odor: None/Absent Tissue Surrounding Wound: Intact Wound General Appearance: Reddened, Open to air, Clean/Dry Wound Comment #1 Left heel pressure ulcer stage IV/Unstageable. #2 Mid sacral pressure ulcer deep tissue injury. #3 Right sacral pressure ulcer deep tissue injury. #4 Left sacral pressure ulcer deep tissue injury. #5 Right heel pressure ulcer stage IV/Unstageable. #6 Right 1st toe vascular issue w/vascular changes. #7 Right medial knee Suspected deep tissue injury. #8 Left medial knee Suspected deep tissue injury. #9 Left ear tragus open wound-etiology unknown. #10 Left 3rd toe vascular issue w/vascular changes. #11 Right 1st toe nail vascular issue w/vascular changes. #12 Left elbow blanchable redness. Recommendation -APPLY LOW AIR LOSS OVERLAY MATTRESS SPR. -FOLLOW UP WITH ATTENDING MD FOR POSSIBLE PODIATRY CONSULT. -Local wound care as ordered. -Turn and reposition. -Keep clean and dry. -Heel protectors. -Offload affected sites. -Avoid shear and friction. -Optimize nutrition. -Assess and notify MD if any change of condition is noted. STEFFI NOGUEIRA Jul 03, 2016 12:41
--- NOTE | 2016-07-03 15:37 | General Progress Note ---
Assessment/Plan Problem List: (1) Sepsis ICD Codes: A41.9 - Sepsis, unspecified organism SNOMED: 79092108 (2) Prostate abscess ICD Codes: N41.2 - Abscess of prostate SNOMED: 7795772 (3) Bacteremia due to Klebsiella pneumoniae ICD Codes: R78.81 - Bacteremia SNOMED: 381287059, 765441678901 (4) Toxic metabolic encephalopathy ICD Codes: G92 - Toxic encephalopathy SNOMED: 592838282 (5) CAD (coronary artery disease) ICD Codes: I25.10 - Atherosclerotic heart disease of [place] coronary artery without angina pectoris SNOMED: 11308554 (6) Percutaneous transluminal coronary angioplasty (PTCA) within last 14 to 24 months ICD Codes: Z98.61 - Coronary angioplasty status SNOMED: 248780720 (7) CVA (cerebral vascular accident) ICD Codes: I63.9 - Cerebral infarction, unspecified SNOMED: 552941119 (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 ICD Codes: L97.423 - Non-pressure 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 SNOMED: 501109795, 432407207, 991105321 (9) PVD (peripheral vascular disease) ICD Codes: I73.9 - Peripheral vascular disease, unspecified SNOMED: 464799293 (10) Diabetes mellitus ICD Codes: E11.9 - Type 2 diabetes mellitus without complications SNOMED: 69592595 Qualifiers: Status: stable Status Narrative Possibly worsening symptoms and leukocytosis as pt with poor PO intake and nausea, possibly was not taking cipro PO ID consulted, appreciate rec's Stop Cipro given QT prolongation and pt c/o nausea w/ cipro PO Cont ceftriaxone 2g q24h (07/02-) x 1 weeks, and then transition to bactrim BID x 1 more week after Consider re-imaging if pt clinically deteriorates Cont SNF meds: ASA, plavix, statin, lisinopril, MTP Soft Shoe [employer]cer consult PERIPHERAL VASCULAR TECH eval Monitor mental status 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 Disposition: Once the patient is stable to leave the hospital, I anticipate the patient will likely be discharged to the following environment: back to SNF I spent 40 minutes on this patient's case, and 22 minutes were dedicated to counseling and/or care coordination. Discussed with patient/family, nursing staff, SW/CM, ID regarding clinical status, treatment course, and disposition planning. Time of note may not reflect time of encounter. Subjective Date patient seen: Jul 03, 2016 Time patient seen: 15:37 ROS Limited/Unobtainable: No Constitutional: Reports: weakness HEENT: Reports: no symptoms Cardiovascular: Reports: no symptoms Respiratory: Reports: no symptoms Genitourinary: Reports: no symptoms Endocrine: Reports: no symptoms Hematologic/Lymphatic: Reports: no symptoms Allergies: Coded Allergies: No Known Allergies (Unverified , 07/01/16) All Systems: reviewed and negative except above Subjective Pt feels better Objective Last 24 Hour Vital Signs Date Time Temp Pulse Resp B/P Pulse Ox O2 Delivery O2 Flow Rate FiO2 07/03/16 11:34 98.1 77 18 130/55 93 Room Air 07/03/16 11:09 77 130/55 07/03/16 11:07 130/55 07/03/16 07:50 77 16 Room Air 21 07/03/16 04:00 97.8 66 18 146/60 95 Room Air 07/03/16 00:27 74 16 07/03/16 00:00 97.7 67 18 150/67 95 Room Air 07/02/16 16:48 97.9 74 20 143/60 94 Room Air 07/02/16 16:00 97.9 74 20 143/60 94 Room Air Intake and Output 07/02/16 07/03/16 19:00 07:00 Intake Total 500 ml 400 ml Output Total 350 ml 350 ml Balance 150 ml 50 ml Intake Oral 200 ml 200 ml IV Total 300 ml 200 ml Output Urine Total 350 ml 350 ml Height (Feet): 5 Height (Inches): 8.00 Weight (Pounds): 161 Objective General: alert, cooperative, no distress, appears stated age Head: normocephalic, without obvious abnormality, atraumatic Eyes: conjunctivae/corneas clear. PERRL, EOM's intact Throat: lips, mucosa, and tongue normal. MMM Neck: supple, symmetrical, trachea midline, and no JVD Lungs: clear to auscultation bilaterally Heart: regular rate and rhythm, S1, S2 normal, no murmur, click, rub or gallop Abdomen: soft, non-tender, non-distended, bowel sounds normal; no masses or organomegaly Extremities: Warm, well-perfused. L heel eschar, dry, no surrounding erythema. R hallux eschar, dry, no erythema. R foot weak biphasic DP, moderate biphasic PT; L foot triphasic DP, biphasic PT Bharat Castle M.D. Jul 03, 2016 15:37
[2016-07-03 16:00] VITALS: BP 185/76
[2016-07-03 17:09] LABS: BASOPHILS % (AUTO) 0.8 % (0.0-2.0); EOSINOPHILS % (AUTO) 2.2 % (0.0-3.0); LYMPHOCYTES % (AUTO) 10.7 % (20.0-45.0); MEAN CORPUSCULAR HEMOGLOBIN 30.5 PG (27.0-31.0); MEAN CORPUSCULAR HGB CONC 33.9 G/DL (32.0-36.0); MEAN CORPUSCULAR VOLUME 90 FL (80-99); MEAN PLATELET VOLUME 7.9 FL (6.5-10.1); MONOCYTES % (AUTO) 4.8 % (1.0-10.0); NEUTROPHILS % (AUTO) 81.5 % (45.0-75.0); PLATELET COUNT 222 K/UL (150-450); RED BLOOD COUNT 3.61 M/UL (4.70-6.10); WHITE BLOOD COUNT 10.5 K/UL (4.8-10.8)
[2016-07-03 17:30] LABS: ANION GAP 16 (5-15); CALCIUM 8.2 mg/dL (8.6-10.2); CARBON DIOXIDE 27 mEQ/L (20-30); CHLORIDE 96 mEQ/L (98-107); CREATININE 0.6 mg/dL (0.7-1.2); HEMOLYSIS 1; MAGNESIUM 1.8 mg/dL (1.7-2.5); POTASSIUM 3.6 mEQ/L (3.4-4.9); SODIUM 139 mEQ/L (135-145)
[2016-07-03 20:00] VITALS: BP 134/68
[2016-07-03] MEDS: Atorvastatin 80mg tab ORAL SCH (21:26)
[2016-07-03] MEDS: Tamsulosin 0.4mg cap ORAL SCH (21:26)
[2016-07-03] MEDS: Vitamin A&D Oint 2oz Tube TOPIC SCH (21:27)
[2016-07-04] VITALS: BP 144/59
[2016-07-04 04:00] VITALS: BP 103/52
[2016-07-04] MEDS: NovoLOG Insulin Flexpen SUBQ SCH ×3 (06:03→16:53)
[2016-07-04 07:10] LABS: ANION GAP 12 (5-15); CALCIUM 8.6 mg/dL (8.6-10.2); CARBON DIOXIDE 28 mEQ/L (20-30); CHLORIDE 101 mEQ/L (98-107); CREATININE 0.7 mg/dL (0.7-1.2); HEMOLYSIS 0; POTASSIUM 3.8 mEQ/L (3.4-4.9); SODIUM 141 mEQ/L (135-145)
[2016-07-04 07:31] LABS: BASOPHILS % (AUTO) 0.6 % (0.0-2.0); EOSINOPHILS % (AUTO) 2.3 % (0.0-3.0); LYMPHOCYTES % (AUTO) 13.8 % (20.0-45.0); MEAN CORPUSCULAR HEMOGLOBIN 30.1 PG (27.0-31.0); MEAN CORPUSCULAR HGB CONC 33.7 G/DL (32.0-36.0); MEAN CORPUSCULAR VOLUME 89 FL (80-99); MEAN PLATELET VOLUME 8.3 FL (6.5-10.1); MONOCYTES % (AUTO) 6.1 % (1.0-10.0); NEUTROPHILS % (AUTO) 77.2 % (45.0-75.0); PLATELET COUNT 259 K/UL (150-450); RED BLOOD COUNT 3.83 M/UL (4.70-6.10); RED CELL DISTRIBUTION WIDTH 13.1 % (11.6-14.8)
[2016-07-04 08:04] VITALS: BP 142/82
[2016-07-04] MEDS: Lisinopril 10mg tab ORAL SCH ×2 (09:00→09:46)
[2016-07-04] MEDS: Docusate 100mg tablet ORAL SCH ×3 (09:00→10:08)
[2016-07-04] MEDS: Aspirin EC 81mg tab ORAL SCH (09:44)
[2016-07-04 12:00] VITALS: BP 159/75
[2016-07-04] MEDS: Vitamin A&D Oint 2oz Tube TOPIC SCH (14:36)
--- NOTE | 2016-07-04 14:58 | Infectious Diseases Prog Note ---
Assessment/Plan Assessment/Plan A) 1) klebsiella prostate abscess and bacteremia - surveillance blood cultures negative 2) high likelihood of underlying bacterial prostatitis 3) sepsis, leukocytosis, ? uti, + ua but urine culture negative, ftt, encephalopathy - leukocytosis resolved 4) cad, dementia, stent, htn, dm, anemia 5) allergies - negative, fh-nc, mar noted, notes and records reviewed 6) d/w RN P) 1) continue ceftriaxone - day # 3 - favor give one week of rocephin total and then oral bactrim for another week to treat 3 weeks for prostate abscess with bacteremia - went over [facility] records with Dr. Nicholson and looks like patient had antibiotics for approximately one week prior to [place] admission which included [facility] hospitalization with iv antibiotics and oral cipro at . Sensitivities of klebsiella also reviewed. - note: bactrim has good prostate tissue levels and cipro caused QT prolongation and was held 2) patient to f/u with urology and may need 6 weeks abx if underlying prostatitis is considered 3) continue treatment per Dr. Nicholson 4) check labs and 5) orders entered and noted 6) d/w Dr. Nicholson at length 7) vre colonization and isolation Subjective Constitutional: Reports: fatigue, other - weak and lethargic , Denies: fever HEENT: Denies: congestion Respiratory: Denies: shortness of breath Cardiovascular: Denies: chest pain Gastrointestinal/Abdominal: Denies: diarrhea, nausea, vomiting Genitourinary: Reports: other - + new Neurologic: Denies: headache Psychiatric: Denies: depression Skin: Denies: rash Hematologic: Denies: bleeding Musculoskeletal: Denies: pain Allergies: Coded Allergies: No Known Allergies (Unverified , 07/01/16) Objective Vital Signs Last 24 Hour Vital Signs Date Time Temp Pulse Resp B/P Pulse Ox O2 Delivery O2 Flow Rate FiO2 07/04/16 12:00 97.7 77 18 159/75 97 Room Air 07/04/16 10:04 72 16 Room Air 21 07/04/16 08:04 97.7 74 18 142/82 95 Room Air 07/04/16 04:00 97.2 75 18 103/52 92 Room Air 07/04/16 00:00 97.0 79 20 144/59 91 Room Air 07/03/16 20:00 97.9 72 20 134/68 93 Room Air 07/03/16 19:00 76 16 Room Air 21 07/03/16 16:00 96.8 63 20 185/76 94 Room Air Height (Feet): 5 Height (Inches): 8.00 Weight (Pounds): 161 General Appearance: no acute distress HEENT: normocephalic, atraumatic, anicteric, mucous membranes moist, PERRL, EOMI, pharynx normal, supple, no JVD Respiratory/Chest: lungs clear, normal breath sounds, no respiratory distress Cardiovascular: normal rate, regular rhythm, no gallop/murmur, no JVD Abdomen: normal bowel sounds, soft, non tender, no organomegaly, non distended Genitourinary: other - + new - urine clearer Extremities: no cyanosis Skin: no rash, no lesions 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 Complete 07/01/16 18:00 Rectum VRE Culture - Final Enterococcus Faecium - Vre Complete Laboratory Tests Test 07/03/16 16:45 07/04/16 05:15 White Blood Count 10.5 K/UL (4.8-10.8) 9.0 K/UL (4.8-10.8) Red Blood Count 3.61 M/UL (4.70-6.10) L 3.83 M/UL (4.70-6.10) L Hemoglobin 11.0 G/DL (14.2-18.0) L 11.5 G/DL (14.2-18.0) L Hematocrit 32.5 % (42.0-52.0) L 34.2 % (42.0-52.0) L Mean Corpuscular Volume 90 FL (80-99) 89 FL (80-99) Mean Corpuscular Hemoglobin 30.5 PG (27.0-31.0) 30.1 PG (27.0-31.0) Mean Corpuscular Hemoglobin Concent 33.9 G/DL (32.0-36.0) 33.7 G/DL (32.0-36.0) Red Cell Distribution Width 13.0 % (11.6-14.8) 13.1 % (11.6-14.8) Platelet Count 222 K/UL (150-450) 259 K/UL (150-450) Mean Platelet Volume 7.9 FL (6.5-10.1) 8.3 FL (6.5-10.1) Neutrophils (%) (Auto) 81.5 % (45.0-75.0) H 77.2 % (45.0-75.0) H Lymphocytes (%) (Auto) 10.7 % (20.0-45.0) L 13.8 % (20.0-45.0) L Monocytes (%) (Auto) 4.8 % (1.0-10.0) 6.1 % (1.0-10.0) Eosinophils (%) (Auto) 2.2 % (0.0-3.0) 2.3 % (0.0-3.0) Basophils (%) (Auto) 0.8 % (0.0-2.0) 0.6 % (0.0-2.0) Sodium Level 139 mEQ/L (135-145) 141 mEQ/L (135-145) Potassium Level 3.6 mEQ/L (3.4-4.9) 3.8 mEQ/L (3.4-4.9) Chloride Level 96 mEQ/L (98-107) L 101 mEQ/L (98-107) Carbon Dioxide Level 27 mEQ/L (20-30) 28 mEQ/L (20-30) Anion Gap 16 (5-15) H 12 (5-15) Blood Urea Nitrogen 7 mg/dL (7-23) 7 mg/dL (7-23) Creatinine 0.6 mg/dL (0.7-1.2) L 0.7 mg/dL (0.7-1.2) Estimat Glomerular Filtration Rate mL/min (>60) mL/min (>60) Glucose Level 111 mg/dL (74-106) H 113 mg/dL (74-106) H Calcium Level 8.2 mg/dL (8.6-10.2) L 8.6 mg/dL (8.6-10.2) Magnesium Level 1.8 mg/dL (1.7-2.5) Current Medications Medications (Trade) Dose Ordered Sig/Jose Armando Route PRN Reason Start Time Stop Time Status Last Admin Dose Admin Acetaminophen (Tylenol) 650 mg Q6H PRN ORAL Mild Pain/Temp > 100.5 07/01/16 16:45 07/31/16 16:44 Albuterol/ Ipratropium (DuoNeb 0.5-3(2.5)mg/3ml) 3 ml Q4H PRN HHN Shortness of Breath 07/01/16 16:15 07/06/16 16:14 Aspirin (Ecotrin) 81 mg DAILY ORAL 07/02/16 09:00 08/01/16 08:59 07/04/16 09:44 Atorvastatin Calcium (Lipitor) 80 mg BEDTIME ORAL 07/01/16 21:00 07/31/16 20:59 07/03/16 21:26 Bisacodyl (Dulcolax) 10 mg HSPRN PRN RECTAL Constipation Second Line Agent 07/01/16 16:15 07/31/16 16:14 Ceftriaxone Sodium/Dextrose (Rocephin/D5W) 100 ml @ 200 mls/hr Q24H IVPB 07/02/16 17:00 07/09/16 16:59 07/03/16 17:23 Clopidogrel Bisulfate (Plavix) 75 mg DAILY ORAL 07/02/16 09:00 08/01/16 08:59 07/04/16 09:45 Dextrose STAT PRN IV Hypoglycemia 07/01/16 17:00 07/31/16 16:59 Docusate Sodium (Colace) 100 mg EVERY 12 HOURS ORAL 07/01/16 21:00 07/31/16 20:59 07/04/16 09:44 Insulin Aspart (NovoLOG) BEFORE MEALS AND HS SUBQ 07/01/16 22:00 07/31/16 21:59 07/04/16 12:58 Latanoprost (Xalatan) 1 drop BEDTIME BOTH EYES 07/01/16 22:00 07/31/16 21:59 07/03/16 21:27 Lisinopril (Zestril) 10 mg DAILY ORAL 07/02/16 09:00 08/01/16 08:59 07/03/16 11:07 Metoprolol Succinate (Toprol XL) 25 mg DAILY ORAL 07/02/16 09:00 08/01/16 08:59 07/03/16 11:09 Mirtazapine (Remeron) 15 mg BEDTIME ORAL 07/01/16 21:00 07/31/16 20:59 07/03/16 21:26 Multivitamins (Multivitamins) 1 tab DAILY ORAL 07/02/16 09:00 08/01/16 08:59 07/04/16 09:45 Ondansetron HCl (Zofran) 4 mg Q6H PRN IVP Nausea & Vomiting 07/01/16 16:15 07/31/16 16:14 Pantoprazole (Protonix) 40 mg ACBREAKFAST ORAL 07/02/16 06:30 08/01/16 06:29 07/04/16 06:03 Polyethylene Glycol (Miralax) 17 gm HSPRN PRN ORAL Constipation First Line Agent 07/01/16 16:15 07/31/16 16:14 Tamsulosin HCl (Flomax) 0.4 mg BEDTIME ORAL 07/01/16 21:00 07/31/16 20:59 07/03/16 21:26 Vitamin A/Vitamin D (A & D Oint) 1 applic EVERY 12 HOURS TOPIC 07/03/16 21:00 08/02/16 20:59 07/04/16 14:36 ARLIN TRIANA Jul 04, 2016 14:58
[2016-07-04] MEDS ORDERED: Metoprolol Tartrate 12.5mg TAB ORAL SCH (15:30)
[2016-07-04] MEDS ORDERED: LOPRESSOR25 M1 ORAL (16:04)
[2016-07-04] MEDS ORDERED: NOVOLOG100 UNITS1 SUBQ (16:29)
--- NOTE | 2016-07-04 16:33 | Discharge Instructions ---
Discharge Instructions Discharge Instructions Follow up with: F/u with urology Dr. Emerson in 1-2 weeks. [phone] Call MD/Return to Hospital if: fevers/chills, nausea, chest pain, SOB Diet: other - MOIST PUREE WITH NECTAR THICK LIQUIDS, MEDICATIONS CRUSHED IN PUREE; needs assistance/feeding supervision Activity: resume normal activities Follow Up Orders Cont Ceftriaxone 2g q24h x 4more days (07/05-07/08), then start bactrim BID x 1 more week For Congestive Heart Failure Reminder Report to your physician any weight gain of 5 pounds or more in one week. Bharat Castle M.D. Jul 04, 2016 16:33
--- NOTE | 2016-07-04 16:34 | Discharge Summary ---
Discharge Summary Hospital Course Date of Admission Jul 01, 2016 at 12:03 Date of Discharge 07/04/16 Admitting Diagnosis sepsis Reason for Hospitalization: sepsis, toxic metabolic encephalopathy HPI 81y/o male with pmh of CVA, DM, GERD, HTN, PVD, recent prostate abscess s/p IR drainage 06/23 c/b bacteremia 2/2 Klebsiella (on Cipro PO at SNF) who presented to the hospital from SNF with lethargy, nausea, poor PO intake and abnormal labs. Pt recently admitted to [facility] 06/20-06/27 for severe sepsis 2/2 prostate abscess c/b Klebisella bacteremia. He underwent transrectal guided aspiration of the prostatic abscess on 06/23/16 and 10cc of tenacious fluid was aspirated that grew K pna and Enterococcus. Blood cultures grew 4/4 bottles w/ Klebsiella sensitive to cipro, bactrim, ceftriaxone. Pt was on cipro IV at [facility] and then transitioned to cipro PO on d/c to complete 2 weeks of antibiotics. Pt was d/c' d with new. Pt was noted to to be increasingly lethargic over the past few days and was not eating per SNF staff. He also c/o nausea. Labs done noteable for WBC 17. In ED, pt's WBC was 12.8 and she was noted to have EKG with QT prolongation. She was given ceftriaxone 1g in ED. Consultations Infectious disease Hospital Course Pt was admitted for sepsis likely 2/2 previously diagnosed prostate abscess. Apparently pt not able to tolerate cipro and EKG showed QT prolongation, therefore pt was switched to ceftriaxone. Pt was seen by ID and recommended ceftriaxone 2g q24h x 1 more week, and then transition to bactrim for another week. Pt's mental status and PO intake improved with these changes. Discharge Medications New Medications: Insulin Aspart (Novolog Flexpen) 100 Unit/1 Ml Insuln.pen 0 UNITS SUBQ BEFORE MEALS AND HS for 30 Days, EA Metoprolol Tartrate (Metoprolol Tartrate) 25 Mg Tablet 12.5 MG ORAL Q12HR for 30 Days, TAB Continued Medications: Acetaminophen* (Tylenol Extra Strength*) 500 Mg Tablet 650 MG ORAL Q6H PRN for Mild Pain/Temp > 100.5, TAB 0 Refills Aspirin* (Aspir 81*) 81 Mg Tablet.dr 81 MG ORAL DAILY, TAB Atorvastatin Calcium* (Lipitor*) 80 Mg Tablet 80 MG ORAL BEDTIME, TAB Bisacodyl* (Dulcolax*) 5 Mg Tablet.dr 10 MG ORAL ONCE PRN for Constipation, #4 TAB 0 Refills Clopidogrel Bisulfate* (Plavix*) 75 Mg Tablet 75 MG ORAL DAILY, TAB Famotidine (Famotidine) 20 Mg Tablet 20 MG ORAL DAILY, #30 TAB 0 Refills Lactobacillus Acidophilus (Probiotic Acidophilus) 1 Each Tablet 1 EACH PO DAILY, TAB Latanoprost* (Xalatan*) 2.5 Ml Drops 1 DROP BOTH EYES BEDTIME, ML 0 Refills Lisinopril* (Lisinopril*) 10 Mg Tablet 10 MG ORAL DAILY, TAB Magnesium Hydroxide* (Milk Of Magnesia*) 2,400 Mg/10 Ml Oral.susp 30 ML ORAL DAILY PRN for Constipation, ML Mirtazapine* (Remeron*) 15 Mg Tablet 15 MG ORAL BEDTIME, TAB Multivitamins* (Multivitamins*) 1 Each Tablet 1 TAB ORAL DAILY, TAB 0 Refills Ondansetron* (Zofran*) 4 Mg Tablet 4 MG ORAL Q6H PRN for Nausea & Vomiting, TAB Tamsulosin Hcl (Tamsulosin Hcl*) 0.4 Mg Cap.er.24h 0.4 MG ORAL BEDTIME, CAP Discontinued Medications: Insulin Detemir (Levemir) 100 Unit/1 Ml Vial 18 UNITS SUBQ BEDTIME, VIAL Metoprolol Succinate* (Metoprolol Succinate*) 25 Mg Tab.er.24h 25 MG ORAL DAILY, TAB Discharge Condition Upon Discharge: stable Discharge Disposition Patient was discharged to SNF/Subacute Facility(03) Discharge Diagnoses: (1) Sepsis (2) Prostate abscess (3) Bacteremia due to Klebsiella pneumoniae (4) Toxic metabolic encephalopathy Discharge Instructions Discharge Instructions Follow up with: F/u with urology Dr. Emerson in 1-2 weeks. [phone] Call MD/Return to Hospital if: fevers/chills, nausea, chest pain, SOB Activity: resume normal activities Bharat Castle M.D. Jul 04, 2016 16:34
[2016-07-04 16:53] VITALS: BP 143/77
[2016-07-04] MEDS ORDERED: NS 275ml ONE (19:59)
[2016-07-04] MEDS ORDERED: Tubing IV Secondary IV ONE (19:59)
--- NOTE | 2016-07-05 15:13 | Discharge Summary ---
Discharge Summary Hospital Course Date of Admission Jul 01, 2016 at 12:03 Date of Discharge Jul 04, 2016 at 20:00 Admitting Diagnosis sepsis HPI Zach Diaz is a 81 year old male who was admitted on Jul 01, 2016 at 12:03 for Sepsis Hospital Course [id number] Discharge Discharge Disposition Patient was discharged to SNF/Subacute Facility(03) Discharge Diagnoses: Discharge Instructions Discharge Instructions Follow up with: F/u with urology Dr. Emerson in 1-2 weeks. [phone] Call MD/Return to Hospital if: fevers/chills, nausea, chest pain, SOB Activity: resume normal activities Dian Willingham NP Jul 05, 2016 15:13
--- NOTE | 2016-07-05 22:33 | Cardiology Report ---
APPROVED REPORT EKG Measurement Heart [id number] Sinus rhythm with 1st degree AV block Non-conducted APC Low voltage QRS T wave abnormality, consider anterolateral ischemia Prolonged QT Abnormal ECG
--- NOTE | 2016-07-06 02:08 | Discharge Summary 2 SIG ---
DATE OF ADMISSION: 07/01/2016 DATE OF DISCHARGE: 07/04/2016 CUSTOMER SERVICE REP: Monique Nielson M.D. BRIEF HOSPITAL COURSE: The patient is an 81-year-old male with history of cardiovascular disease, diabetes mellitus, gastroesophageal reflux disease, hypertension, peripheral vascular disease, recent prostate abscess status post incision and drainage on 06/23/2016 with bacteremia secondary to Klebsiella, who [facility], presented to the hospital with lethargy, nausea, and poor p.o. intake with abnormal laboratories. He was recently admitted to [facility] on 06/20/2016 to 06/27/2016 for severe sepsis secondary to prostate abscess with Klebsiella bacteremia and underwent a transrectal guided aspiration of the prostatic abscess with 10 mL of tenacious fluid aspirated that grew Klebsiella pneumoniae and Enterococcus. Blood culture showed 4/4 bottles with Klebsiella sensitive to ciprofloxacin, Bactrim, and ceftriaxone. He was given ciprofloxacin intravenous at [facility] and was transitioned to Cipro to complete two-[facility] antibiotic [facility] at the [facility]. He was noted to be increasingly lethargic over the past few days and was not eating per [facility] staff. Laboratories done was notable for elevated WBC. On evaluation at ED, he continued to have leukocytosis. EKG with findings of QT prolongation. Ciprofloxacin was discontinued and was started on ceftriaxone. Dr. Nielson was consulted. Chest x-ray showed no evidence of pneumonia. No consolidation. Urinalysis with 2+ leukocyte esterase and 20 to 30 WBC. Speech therapy swallow evaluation was done and it showed [id number] oropharyngeal dysphagia. No overt signs and symptoms of aspiration. Diet was changed to mechanical soft ground with nectar thick liquids and strict aspiration precaution with one-to-one feed. The patient was eventually [facility] to [facility], to continue ceftriaxone 2 g for one week and then transition to Bactrim b.i.d. for one more week after, and to follow up with Urology, Dr. Emerson in one to two weeks. FINAL DIAGNOSES: 1. Sepsis. 2. Prostate abscess. 3. Bacteremia due to Klebsiella pneumoniae. 4. Acute toxic metabolic encephalopathy. 5. Coronary artery disease. 6. Percutaneous transluminal coronary angioplasty within the last 14 to 24 months. 7. Cerebrovascular disease. 8. 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 9. Peripheral vascular disease. 10. Diabetes mellitus. 11. Multiple decubiti pressure ulcer present on admission. Bharat Castle M.D. I have been assigned to dictate discharge summary on this account and I was not involved in the patient's management. Dian Willingham N.P. DR: ESTELITA JOB#: [id number] CC: DANYELL
== END 2016-07-04 20:00 | DRG 871 ==
LOC: EDBD 10:06 → EMR 10:56 → 4W 12:03 → EDBEDREQ 13:51 → 4W 07-04 10:57
DX: A41.9 Sepsis, unspecified organism (principal); G93.41 Metabolic encephalopathy; L97.423 Non-pressure chronic ulcer of left heel and midfoot with necrosis of muscle; N39.0 Urinary tract infection, site not specified; R62.7 Adult failure to thrive; F03.90 Unspecified dementia, unspecified severity, without behavioral disturbance, psychotic disturbance, mood disturbance, and anxiety; N41.2 Abscess of prostate; B96.1 Klebsiella pneumoniae [K. pneumoniae] as the cause of diseases classified elsewhere; I25.10 Atherosclerotic heart disease of native coronary artery without angina pectoris; Z86.73 Personal history of transient ischemic attack (TIA), and cerebral infarction without residual deficits; K21.9 Gastro-esophageal reflux disease without esophagitis; I10 Essential (primary) hypertension; I73.9 Peripheral vascular disease, unspecified; I67.9 Cerebrovascular disease, unspecified; Z95.5 Presence of coronary angioplasty implant and graft; Z87.891 Personal history of nicotine dependence; E78.5 Hyperlipidemia, unspecified; E11.9 Type 2 diabetes mellitus without complications
CPT/HCPCS: 36415; 71010; 80048; 80053; 81003; 82550; 82553; 82962; 83605; 83735; 84484; 85025; 87040; 87081; 87086; 93005; 94664; J1815

== ENCOUNTER 2016-10-03 16:04 | Inpatient (IN) | payer MEDICARE, OTHER, MEDICAID ==
[~2016-10-03] VITALS: Ht 160 cm; Wt 65.4 kg
[~2016-10-03 16:04] MED LIST: ASPIR 8181 MG ORAL; ATORVASTATIN CA80 MG ORAL; BISACODYL5 MG ORAL; FAMOTIDINE20 MG ORAL; LATANOPROST2.5 ML BOTH EYES; LEVAQUIN750 MG ORAL; LEVEMIR100 UNIT/1 SUBQ; LISINOPRIL10 MG ORAL; LOPRESSOR25 M1 ORAL; METOPROLOL SUCC25 MG ORAL; MILK OF MA2400 MG/10 ORAL; MIRTAZAPINE15 MG ORAL; MULTIVITAMINS1 EAC2 ORAL; NOVOLOG100 UNITS1 SUBQ; PLAVIX75 MG ORAL; PROBIOTIC ACID1 EAC3 PO; Piperacillin/Tazobactam 4.5 GM in NS 110 ML IV ONE; TAMSULOSIN HCL0.4 MG ORAL; TYLENOL EXTRA500 MG ORAL; Vancomycin 1 GM in NS 275 ML IV ONE; ZOFRAN4 M3 ORAL
--- NOTE | 2016-10-03 16:07 | Emergency Room Report ---
History of Present Illness General Chief Complaint: General Complaint Source: Medical Record, EMS Present Illness HPI The patient presents for a assisted facility because of x-ray revealed that he has evidence of pneumonia. Patient denies having pain at this time. Also denies being short of breath. He's got some dementia and therefore his answers are somewhat questionable. Patient has diabetes and failure to thrive. He is a DO NOT RESUSCITATE DO NOT INTUBATE patient. Further history is unobtainable. Allergies: Coded Allergies: No Known Allergies (Unverified , 07/01/16) Patient History Limited by: medical condition Past Medical History: see triage record, old chart reviewed Social History Narrative SNF Reviewed Nursing Documentation: PMH: Agreed, PSxH: Agreed Nursing Documentation-PMH Hx Cardiac Problems: Yes - CAD Hx Hypertension: No Hx Pacemaker: No Hx Asthma: No Hx Diabetes: Yes Hx Cancer: No Hx Dialysis: No Hx Cerebrovascular Accident: Yes Hx Seizures: No Review of Systems All Other Systems: limited Physical Exam Vital Signs Date Time Temp Pulse Resp B/P Pulse Ox O2 Delivery O2 Flow Rate FiO2 10/03/16 15:57 97.9 90 18 112/74 96 Nasal Cannula [id number] EP Interpretation: reviewed, normal General Appearance: alert, Chronically Ill Head: normocephalic, atraumatic Eyes: bilateral eye PERRL, bilateral eye normal inspection ENT: dry mucus membranes Neck: supple Respiratory: lungs clear, normal breath sounds Cardiovascular #1: regular rate, rhythm Cardiovascular #2: 2+ radial (R) Gastrointestinal: normal inspection, normal bowel sounds, non tender, no mass, non-distended, other - G tube Musculoskeletal: back normal, gait/station normal, normal range of motion Neurologic: alert Psychiatric: depressed affect Skin: normal inspection, warm/dry, other - decubiti and ulcer great toe Medical Decision Making Diagnostic Impression: Primary Impression: pneumonia Additional Impression: UTI (urinary tract infection) Qualified Codes: N30.00 - Acute cystitis without hematuria ER Course The patient presents from a assisted facility facility with x-rays suggest pneumonia. We need to evaluate him for possible sepsis. Blood cultures , lactate an EKG chest x-ray and other labs to be obtained. Will start giving IV hydration and antibiotics are ordered as is coming from a assisted facility. EKG unremarkable. CXR with infiltrate. Labs with elevated WBC. Urine with pyuria. Normal lactate. Improved mentation with IV hydration. Discussed with Dr. Nicholson. @ 18:40. Admit med, Dr. Lozano. Laboratory Tests Test 10/03/16 16:15 10/03/16 16:35 White Blood Count 15.5 K/UL (4.8-10.8) H Red Blood Count 3.43 M/UL (4.70-6.10) L Hemoglobin 10.3 G/DL (14.2-18.0) L Hematocrit 31.2 % (42.0-52.0) L Mean Corpuscular Volume 91 FL (80-99) Mean Corpuscular Hemoglobin 30.1 PG (27.0-31.0) Mean Corpuscular Hemoglobin Concent 33.1 G/DL (32.0-36.0) Red Cell Distribution Width 15.6 % (11.6-14.8) H Platelet Count 364 K/UL (150-450) Mean Platelet Volume 7.0 FL (6.5-10.1) Neutrophils (%) (Auto) % (45.0-75.0) Lymphocytes (%) (Auto) % (20.0-45.0) Monocytes (%) (Auto) % (1.0-10.0) Eosinophils (%) (Auto) % (0.0-3.0) Basophils (%) (Auto) % (0.0-2.0) Differential Total Cells Counted 100 Neutrophils % (Manual) 87 % (45-75) H Lymphocytes % (Manual) 7 % (20-45) L Monocytes % (Manual) 3 % (1-10) Eosinophils % (Manual) 1 % (0-3) Basophils % (Manual) 0 % (0-2) Band Neutrophils 2 % (0-8) Platelet Estimate Adequate Platelet Morphology Normal Hypochromasia 1+ Anisocytosis 1+ Prothrombin Time 11.4 SEC (9.30-11.50) Prothrombin Time INR 1.1 (0.9-1.1) PTT 30 SEC (23-33) Sodium Level 145 mEQ/L (135-145) Potassium Level 3.7 mEQ/L (3.4-4.9) Chloride Level 101 mEQ/L (98-107) Carbon Dioxide Level 26 mEQ/L (20-30) Anion Gap 18 (5-15) H Blood Urea Nitrogen 12 mg/dL (7-23) Creatinine 0.7 mg/dL (0.7-1.2) Estimate Glomerular Filtration Rate mL/min (>60) Glucose Level 166 mg/dL (74-106) H Lactic Acid Level 1.10 mmol/L (0.66-2.22) Calcium Level 9.5 mg/dL (8.6-10.2) Total Bilirubin 0.5 mg/dL (0.0-1.2) Aspartate Amino Transferase (AST) 16 U/L (5-40) Alanine Aminotransferase (ALT) < 5 U/L (3-41) Alkaline Phosphatase 96 U/L (40-129) Total Creatine Kinase 10 U/L (38-174) L Troponin I < 0.30 ng/mL (<=0.30) Pro-B-Type Natriuretic Peptide 270 pg/mL (0-450) Total Protein 7.9 g/dL (6.6-8.7) Albumin 2.6 g/dL (3.5-5.2) L Globulin 5.3 g/dL Albumin/Globulin Ratio 0.4 (1.0-2.7) L Urine Color Yellow Urine Appearance Clear Urine pH 6 (4.5-8.0) Urine Specific [place] 1.015 (1.005-1.035) Urine Protein 2+ (NEGATIVE) H Urine Glucose (UA) Negative (NEGATIVE) Urine Ketones 3+ (NEGATIVE) H Urine Occult Blood 2+ (NEGATIVE) H Urine Nitrite Positive (NEGATIVE) H Urine Bilirubin Negative (NEGATIVE) Urine Urobilinogen 1 MG/DL (0.0-1.0) H Urine Leukocyte Esterase 3+ (NEGATIVE) H Urine RBC 5-10 /HPF (0 - 0) H Urine WBC 10-15 /HPF (0 - 0) H Urine Squamous Epithelial Cells None /LPF (NONE/OCC) Urine Amorphous Sediment Moderate /LPF (NONE) H Urine Bacteria Moderate /HPF (NONE) H EKG Diagnostic Results Rate: normal Rhythm: NSR ST Segments: no acute changes - First-degree AV Rhythm Strip Diag. Results EP Interpretation: yes Rhythm: NSR, no PVC's, no ectopy Chest X-Ray Diagnostic Results Chest X-Ray Ordered: Yes # of Views/Limited/Complete: 1 View EP Interpretation: Yes Interpretation: no effusion, no pneumothorax, no acute cardiopulmonary disease , other - RML/RLL infiltrate Indication: Other Impression: Other Interpreting ER Provider: yumiko Last Vital Signs Date Time Temp Pulse Resp B/P Pulse Ox O2 Delivery O2 Flow Rate FiO2 10/04/16 00:13 94 20 97 Room Air 21 10/04/16 00:00 96.9 125/63 Status: improved Disposition: ADMITTED INPATIENT Condition: Serious Everett Coello M.D. Oct 03, 2016 16:07
[2016-10-03] MEDS ORDERED: GENTAK5 ML BOTH EYES (16:13)
[2016-10-03] MEDS ORDERED: ATIVAN0.5 MG ORAL (16:13)
[2016-10-03] MEDS ORDERED: Zosyn 4.5gm inj ONE (16:28)
[2016-10-03 16:45] LABS: APPEARANCE,URINE CLEAR; KETONES,URINE 3+ (NEGATIVE); LEUKOCYTE ESTERASE ,URINE 3+ (NEGATIVE); NITRITE,URINE POSITIVE (NEGATIVE); PH,URINE 6 (4.5-8.0); PROTEIN,URINE 2+ (NEGATIVE); UROBILINOGEN,URINE 1 MG/DL (0.0-1.0)
[2016-10-03 16:48] LABS: MEAN CORPUSCULAR HEMOGLOBIN 30.1 PG (27.0-31.0); MEAN CORPUSCULAR HGB CONC 33.1 G/DL (32.0-36.0); MEAN CORPUSCULAR VOLUME 91 FL (80-99); PLATELET COUNT 364 K/UL (150-450); RED BLOOD COUNT 3.43 M/UL (4.70-6.10); RED CELL DISTRIBUTION WIDTH 15.6 % (11.6-14.8); WHITE BLOOD COUNT 15.5 K/UL (4.8-10.8)
[2016-10-03 16:50] VITALS: BP 128/67
[2016-10-03 17:03] LABS: INR 1.1 (0.9-1.1); PROTHROMBIN TIME 11.4 SEC (9.30-11.50)
[2016-10-03 17:07] LABS: AMORPHOUS SEDIMENT,UR MODERATE /LPF; BACTERIA,URINE MODERATE /HPF
[2016-10-03 17:13] LABS: ALANINE AMINOTRANSFERASE < 5 U/L (3-41); ALBUMIN/GLOBULIN RATIO 0.4 (1.0-2.7); ANION GAP 18 (5-15); ASPARTATE AMINO TRANSFERASE 16 U/L (5-40); CALCIUM 9.5 mg/dL (8.6-10.2); CARBON DIOXIDE 26 mEQ/L (20-30); CHLORIDE 101 mEQ/L (98-107); CREATININE 0.7 mg/dL (0.7-1.2); HEMOLYSIS 9; POTASSIUM 3.7 mEQ/L (3.4-4.9); SODIUM 145 mEQ/L (135-145); TOTAL PROTEIN 7.9 g/dL (6.6-8.7); TROPONIN I < 0.30 ng/mL (<=0.30)
[2016-10-03] MEDS ORDERED: Vancomycin 1gm in D5W 275ml IVPB ONE (17:30)
[2016-10-03 17:32] LABS: ANISOCYTOSIS 1+; BAND NEUTROPHILS % (MANUAL) 2 % (0-8); EOSINOPHILS % (MANUAL) 1 % (0-3); HYPOCHROMASIA 1+; LYMPHOCYTES % (MANUAL) 7 % (20-45); NEUTROPHILS % (MANUAL) 87 % (45-75); TOTAL CELLS COUNTED 100
[2016-10-03 17:33] LABS: BASOPHILS % (MANUAL) 0 % (0-2); PLATELET ESTIMATE ADEQUATE; PLATELET MORPHOLOGY NORMAL
[2016-10-03] MEDS ORDERED: Vancomycin 1gm inj IVPB ONE (17:37)
[2016-10-03 19:20] VITALS: BP 140/69
[2016-10-03] MEDS ORDERED: Bisacodyl EC 5mg tab ORAL PRN (20:30)
[2016-10-03] MEDS ORDERED: Milk of Magnesia 30ml Ud ORAL PRN ×2 (20:30)
[2016-10-03] MEDS ORDERED: DuoNeb 0.5-3(2.5)mg/3ml neb HHN PRN (20:30)
[2016-10-03] MEDS ORDERED: Acetaminophen 500mg (ES) tab ORAL PRN (20:30)
[2016-10-03] MEDS ORDERED: LORazepam 0.5mg tab ORAL PRN (20:30)
[2016-10-03] MEDS ORDERED: Miralax 17gm pkt ORAL PRN (20:30)
--- NOTE | 2016-10-03 20:34 | History and Physical ---
History of Present Illness General Date patient seen: Oct 03, 2016 Time patient seen: 20:33 Reason for Hospitalization: HCAP Present Illness HPI 81y/o male with pmh of CVA, DM2, GERD, HTN, PVD, CAD w/ NSTEMI s/p ALEX x2 to LAD on 06/2016, prostate abscess s/p IR drainage 06/23/16 c/b bacteremia 2/2 Klebsiella, left sided parotitis 2/2 MRSA who presents with fevers and cough. Pt resides at SNF and has noted to have fevers/chills and cough. Pt states cough is productive of yellow/green sputum. Denies SOB, chest pain, n/v, d/v, abd pain. In ED, pt noted to have temp 96.9 and labs showed WBC 15.5K. CXR with concern for pneumonia and U/A also w/ evidence of infection. Pt given vanco, zosyn and levaquin in ED. Also given 1L NS bolus. Allergies: Coded Allergies: No Known Allergies (Unverified , 07/01/16) Medication History Scheduled Aspirin* (Aspir 81*), 81 MG ORAL DAILY, (Reported) Atorvastatin Calcium* (Lipitor*), 80 MG ORAL BEDTIME, (Reported) Clopidogrel Bisulfate* (Plavix*), 75 MG ORAL DAILY, (Reported) Famotidine (Famotidine), 20 MG ORAL DAILY, (Reported) Gentamicin Sulfate* (Gentak*), 1 DROP BOTH EYES Q6HR, (Reported) Insulin Aspart (Novolog Flexpen), 0 UNITS SUBQ BEFORE MEALS AND HS Lactobacillus Acidophilus (Probiotic Acidophilus), 1 EACH PO DAILY, (Reported) Latanoprost* (Xalatan*), 1 DROP BOTH EYES BEDTIME, (Reported) Lisinopril* (Lisinopril*), 10 MG ORAL DAILY, (Reported) Lorazepam* (Ativan*), 0.5 MG ORAL HS, (Reported) Metoprolol Tartrate (Metoprolol Tartrate), 12.5 MG ORAL Q12HR Mirtazapine* (Remeron*), 15 MG ORAL BEDTIME, (Reported) Multivitamins* (Multivitamins*), 1 TAB ORAL DAILY, (Reported) Tamsulosin Hcl (Tamsulosin Hcl*), 0.4 MG ORAL BEDTIME, (Reported) Scheduled PRN Acetaminophen* (Tylenol Extra Strength*), 650 MG ORAL Q6H PRN for Mild Pain/ Temp > 100.5, (Reported) Bisacodyl* (Dulcolax*), 10 MG ORAL ONCE PRN for Constipation, (Reported) Magnesium Hydroxide* (Milk Of Magnesia*), 30 ML ORAL DAILY PRN for Constipation, (Reported) Ondansetron* (Zofran*), 4 MG ORAL Q6H PRN for Nausea & Vomiting, (Reported) Patient History History Provided By: Family Member, Medical Record, PMD Healthcare decision maker Resuscitation status Advanced Directive on File Past Medical/Surgical History Past Medical/Surgical History: (1) Diabetes mellitus (2) CAD (coronary artery disease) (3) PVD (peripheral vascular disease) (4) Prostate abscess (5) CVA (cerebral vascular accident) (6) 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 Social History Social History: (1) Resides in care home facility Review of Systems ROS Narrative CONSTITUTIONAL: No weight loss, fever, chills, weakness or fatigue. HEENT: Eyes: No visual loss, blurred vision, double vision or yellow sclerae. Ears, Nose, Throat: No hearing loss, sneezing, congestion, runny nose or sore throat. SKIN: No rash or itching. CARDIOVASCULAR: No chest pain, chest pressure or chest discomfort. No palpitations or edema. RESPIRATORY: No shortness of breath. +cough w/ sputum GASTROINTESTINAL: No anorexia, nausea, vomiting or diarrhea. No abdominal pain or blood. NEUROLOGICAL: No headache, dizziness, syncope, paralysis, ataxia, numbness or tingling in the extremities. No change in bowel or bladder control. MUSCULOSKELETAL: No muscle, back pain, joint pain or stiffness. HEMATOLOGIC: No anemia, bleeding or bruising. LYMPHATICS: No enlarged nodes. No history of splenectomy. PSYCHIATRIC: No history of depression or anxiety. ENDOCRINOLOGIC: No reports of sweating, cold or heat intolerance. No polyuria or polydipsia. ALLERGIES: No history of asthma, hives, eczema or rhinitis. Physical Exam Physical Exam Narrative General: alert, cooperative, no distress, appears stated age Head: normocephalic, without obvious abnormality, atraumatic Eyes: conjunctivae/corneas clear. PERRL, EOM's intact Throat: lips, mucosa, and tongue normal. MMM Neck: supple, symmetrical, trachea midline, and no JVD Lungs: +rhonchi b/l Heart: regular rate and rhythm, S1, S2 normal, no murmur, click, rub or gallop Abdomen: soft, non-tender, non-distended, bowel sounds normal; no masses or organomegaly Extremities: extremities normal, atraumatic, no cyanosis or edema Pulses: 2+ and symmetric Skin: skin color, texture, turgor normal; no rashes or lesions Neurologic: grossly normal, no focal deficits Last 24 Hour Vital Signs Date Time Temp Pulse Resp B/P Pulse Ox O2 Delivery O2 Flow Rate FiO2 10/03/16 19:20 97.9 94 17 140/69 95 Room Air 10/03/16 16:50 97.9 91 18 128/67 96 Nasal Cannula 10/03/16 15:57 97.9 90 18 112/74 96 Nasal Cannula Laboratory Tests Test 10/03/16 16:15 10/03/16 16:35 White Blood Count 15.5 K/UL (4.8-10.8) H Red Blood Count 3.43 M/UL (4.70-6.10) L Hemoglobin 10.3 G/DL (14.2-18.0) L Hematocrit 31.2 % (42.0-52.0) L Mean Corpuscular Volume 91 FL (80-99) Mean Corpuscular Hemoglobin 30.1 PG (27.0-31.0) Mean Corpuscular Hemoglobin Concent 33.1 G/DL (32.0-36.0) Red Cell Distribution Width 15.6 % (11.6-14.8) H Platelet Count 364 K/UL (150-450) Mean Platelet Volume 7.0 FL (6.5-10.1) Neutrophils (%) (Auto) % (45.0-75.0) Lymphocytes (%) (Auto) % (20.0-45.0) Monocytes (%) (Auto) % (1.0-10.0) Eosinophils (%) (Auto) % (0.0-3.0) Basophils (%) (Auto) % (0.0-2.0) Differential Total Cells Counted 100 Neutrophils % (Manual) 87 % (45-75) H Lymphocytes % (Manual) 7 % (20-45) L Monocytes % (Manual) 3 % (1-10) Eosinophils % (Manual) 1 % (0-3) Basophils % (Manual) 0 % (0-2) Band Neutrophils 2 % (0-8) Platelet Estimate Adequate Platelet Morphology Normal Hypochromasia 1+ Anisocytosis 1+ Prothrombin Time 11.4 SEC (9.30-11.50) Prothromb Time International Ratio 1.1 (0.9-1.1) Activated Partial Thromboplast Time 30 SEC (23-33) Sodium Level 145 mEQ/L (135-145) Potassium Level 3.7 mEQ/L (3.4-4.9) Chloride Level 101 mEQ/L (98-107) Carbon Dioxide Level 26 mEQ/L (20-30) Anion Gap 18 (5-15) H Blood Urea Nitrogen 12 mg/dL (7-23) Creatinine 0.7 mg/dL (0.7-1.2) Estimat Glomerular Filtration Rate mL/min (>60) Glucose Level 166 mg/dL (74-106) H Lactic Acid Level 1.10 mmol/L (0.66-2.22) Calcium Level 9.5 mg/dL (8.6-10.2) Total Bilirubin 0.5 mg/dL (0.0-1.2) Aspartate Amino Transf (AST/SGOT) 16 U/L (5-40) Alanine Aminotransferase (ALT/SGPT) < 5 U/L (3-41) Alkaline Phosphatase 96 U/L (40-129) Total Creatine Kinase 10 U/L (38-174) L Troponin I < 0.30 ng/mL (<=0.30) Pro-B-Type Natriuretic Peptide 270 pg/mL (0-450) Total Protein 7.9 g/dL (6.6-8.7) Albumin 2.6 g/dL (3.5-5.2) L Globulin 5.3 g/dL Albumin/Globulin Ratio 0.4 (1.0-2.7) L Urine Color Yellow Urine Appearance Clear Urine pH 6 (4.5-8.0) Urine Specific [place] 1.015 (1.005-1.035) Urine Protein 2+ (NEGATIVE) H Urine Glucose (UA) Negative (NEGATIVE) Urine Ketones 3+ (NEGATIVE) H Urine Occult Blood 2+ (NEGATIVE) H Urine Nitrite Positive (NEGATIVE) H Urine Bilirubin Negative (NEGATIVE) Urine Urobilinogen 1 MG/DL (0.0-1.0) H Urine Leukocyte Esterase 3+ (NEGATIVE) H Urine RBC 5-10 /HPF (0 - 0) H Urine WBC 10-15 /HPF (0 - 0) H Urine Squamous Epithelial Cells None /LPF (NONE/OCC) Urine Amorphous Sediment Moderate /LPF (NONE) H Urine Bacteria Moderate /HPF (NONE) H Height (Feet): 5 Height (Inches): 3.00 Weight (Pounds): 120 Medications Current Medications Medications (Trade) Dose Ordered Sig/Jose Armando Route PRN Reason Start Time Stop Time Status Last Admin Dose Admin Docusate Sodium (Colace) 100 mg EVERY 12 HOURS ORAL 10/03/16 21:00 11/02/16 20:59 UNV Heparin Sodium (Porcine) (Heparin 5000 units/ml) 5,000 units EVERY 12 HOURS SUBQ 10/03/16 21:00 11/02/16 20:59 UNV Sodium Chloride (0.45% NS 1000ml) 1,000 ml @ 75 mls/hr [id number] IV 10/03/16 21:20 11/02/16 21:19 UNV Assessment/Plan Problem List: (1) Sepsis ICD Codes: A41.9 - Sepsis, unspecified organism SNOMED: 13830910 (2) HCAP (healthcare-associated pneumonia) ICD Codes: J18.9 - Pneumonia, unspecified organism SNOMED: 120525200 (3) UTI (urinary tract infection) ICD Codes: N39.0 - Urinary tract infection, site not specified SNOMED: 99763079 Qualifiers: Qualified Codes: N30.00 - Acute cystitis without hematuria (4) CAD (coronary artery disease) ICD Codes: I25.10 - Atherosclerotic heart disease of [place] coronary artery without angina pectoris SNOMED: 25292778 (5) PVD (peripheral vascular disease) ICD Codes: I73.9 - Peripheral vascular disease, unspecified SNOMED: 485755530 (6) Diabetes mellitus ICD Codes: E11.9 - Type 2 diabetes mellitus without complications SNOMED: 61250763 (7) CVA (cerebral vascular accident) ICD Codes: I63.9 - Cerebral infarction, unspecified SNOMED: 135308708 (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 ICD Codes: L97.423 - Non-pressure 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 SNOMED: 958741146, 409297299, 555345772 Status: stable Assessment/Plan Admit inpt Cont empiric vanco and zosyn mIVFs F/u blood cultures F/u urine culture Sputum cx if pt able to provide Swallow eval Mucinex BID Duonebs ATC and PRN Cont SNF meds GAYLA PT/OT Wound care DVT Prophylaxis: SCD, HSQ Code Status: DNR/DNI Hospital Classification Declaration: Based on this initial evaluation, and depending on the patient's clinical course, I anticipate that this patient will require hospitalization for 2-3 days for sepsis, HCAP, UTI and close respiratory /hemodynamic monitoring. Disposition: Once the patient is stable to leave the hospital, I anticipate the patient will likely be discharged to the following environment: back to SNF I spent 72 minutes on this patient's case, and 39 minutes were dedicated to counseling and/or care coordination. Discussed with patient/family, nursing staff, SW/CM, ED physician regarding clinical status, treatment course, and disposition planning. Time of note may not reflect time of encounter. Bharat Castle M.D. Oct 03, 2016 20:34
[2016-10-03 20:45] VITALS: BP 136/68
[2016-10-03] MEDS ORDERED: NovoLOG Insulin Flexpen SUBQ SCH (21:45)
[2016-10-03 21:54] VITALS: BP 130/75
[2016-10-03] MEDS: Piperacillin/Tazobactam 3.375 GM in NS 110 ML IVPB SCH (22:28)
[2016-10-03] MEDS: Gentamicin 0.3% Opth Soln 5ml BOTH EYES SCH (22:29)
[2016-10-03] MEDS: Docusate 100mg cap ORAL SCH (22:30)
[2016-10-03] MEDS: Atorvastatin 80mg tab ORAL SCH (22:30)
[2016-10-03] MEDS: Tamsulosin 0.4mg cap ORAL SCH (22:31)
[2016-10-03] MEDS: Heparin 5000 units/ml inj SUBQ SCH (22:31)
[2016-10-03] MEDS: Metoprolol 25mg tab ORAL SCH (22:31)
[2016-10-03] MEDS: guaiFENesin ER 600mg tab ORAL SCH (22:32)
[2016-10-04] VITALS (7 sets, daily range): BP systolic 96–125; BP diastolic 57–82
[2016-10-04] MEDS: DuoNeb 0.5-3(2.5)mg/3ml neb HHN SCH ×4 (00:08→19:48)
[2016-10-04] MEDS: Gentamicin 0.3% Opth Soln 5ml BOTH EYES SCH ×4 (00:46→17:28)
[2016-10-04] MEDS: Piperacillin/Tazobactam 3.375 GM in NS 110 ML IVPB SCH ×2 (06:18→14:36)
[2016-10-04] MEDS: NovoLOG Insulin Flexpen SUBQ SCH ×4 (06:19→21:00)
[2016-10-04] MEDS: Aspirin EC 81mg tab ORAL SCH (08:46)
[2016-10-04] MEDS: guaiFENesin ER 600mg tab ORAL SCH ×2 (08:47→19:50)
[2016-10-04] MEDS: Docusate 100mg cap ORAL SCH ×2 (08:47→21:56)
[2016-10-04] MEDS: Heparin 5000 units/ml inj SUBQ SCH ×2 (08:54→22:00)
[2016-10-04] MEDS: Lisinopril 10mg tab ORAL SCH (08:54)
[2016-10-04] MEDS: Metoprolol 25mg tab ORAL SCH ×2 (08:54→21:56)
[2016-10-04 09:48] LABS: MEAN CORPUSCULAR HGB CONC 32.5 G/DL (32.0-36.0); MEAN CORPUSCULAR VOLUME 93 FL (80-99); MEAN PLATELET VOLUME 7.1 FL (6.5-10.1); PLATELET COUNT 315 K/UL (150-450); RED BLOOD COUNT 3.01 M/UL (4.70-6.10); RED CELL DISTRIBUTION WIDTH 15.5 % (11.6-14.8); WHITE BLOOD COUNT 14.5 K/UL (4.8-10.8)
[2016-10-04 10:02] LABS: ANION GAP 18 (5-15); CARBON DIOXIDE 24 mEQ/L (20-30); CHLORIDE 104 mEQ/L (98-107); CREATININE 0.8 mg/dL (0.7-1.2); HEMOLYSIS 1; MAGNESIUM 1.6 mg/dL (1.7-2.5); POTASSIUM 3.1 mEQ/L (3.4-4.9); SODIUM 146 mEQ/L (135-145)
[2016-10-04 10:23] LABS: ANISOCYTOSIS 1+; BAND NEUTROPHILS % (MANUAL) 0 % (0-8); BASOPHILS % (MANUAL) 2 % (0-2); EOSINOPHILS % (MANUAL) 0 % (0-3); HYPOCHROMASIA 2+; LYMPHOCYTES % (MANUAL) 5 % (20-45); NEUTROPHILS % (MANUAL) 89 % (45-75); PLATELET ESTIMATE ADEQUATE; PLATELET MORPHOLOGY NORMAL; TOTAL CELLS COUNTED 100
--- NOTE | 2016-10-04 16:20 | Consultation ---
History of Present Illness General Date patient seen: Oct 04, 2016 Chief Complaint: General Complaint Reason for Consultation: pneumonia Present Illness HPI 81 year old male with extensive PMHx, cachexia, custodial resident, DNR/ DNI , was brought in to ER for evaluation for pneumonia and sepsis. Pt is confused and can't give any history. looks cachectic and chronically ill but comfortable and awake and confused. Allergies: Coded Allergies: No Known Allergies (Unverified , 07/01/16) Medication History Scheduled Aspirin* (Aspir 81*), 81 MG ORAL DAILY, (Reported) Atorvastatin Calcium* (Lipitor*), 80 MG ORAL BEDTIME, (Reported) Clopidogrel Bisulfate* (Plavix*), 75 MG ORAL DAILY, (Reported) Famotidine (Famotidine), 20 MG ORAL DAILY, (Reported) Gentamicin Sulfate* (Gentak*), 1 DROP BOTH EYES Q6HR, (Reported) Insulin Aspart (Novolog Flexpen), 0 UNITS SUBQ BEFORE MEALS AND HS Lactobacillus Acidophilus (Probiotic Acidophilus), 1 EACH PO DAILY, (Reported) Latanoprost* (Xalatan*), 1 DROP BOTH EYES BEDTIME, (Reported) Lisinopril* (Lisinopril*), 10 MG ORAL DAILY, (Reported) Lorazepam* (Ativan*), 0.5 MG ORAL HS, (Reported) Metoprolol Tartrate (Metoprolol Tartrate), 12.5 MG ORAL Q12HR Mirtazapine* (Remeron*), 15 MG ORAL BEDTIME, (Reported) Multivitamins* (Multivitamins*), 1 TAB ORAL DAILY, (Reported) Tamsulosin Hcl (Tamsulosin Hcl*), 0.4 MG ORAL BEDTIME, (Reported) Scheduled PRN Acetaminophen* (Tylenol Extra Strength*), 650 MG ORAL Q6H PRN for Mild Pain/ Temp > 100.5, (Reported) Bisacodyl* (Dulcolax*), 10 MG ORAL ONCE PRN for Constipation, (Reported) Magnesium Hydroxide* (Milk Of Magnesia*), 30 ML ORAL DAILY PRN for Constipation, (Reported) Ondansetron* (Zofran*), 4 MG ORAL Q6H PRN for Nausea & Vomiting, (Reported) Patient History Healthcare decision maker Gautam Mayes(sister) Resuscitation status Do Not Resuscitate Advanced Directive on File No Past Medical/Surgical History Past Medical/Surgical History: (1) 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 (2) CVA (cerebral vascular accident) (3) CAD (coronary artery disease) (4) Diabetes mellitus Review of Systems All Other Systems: negative except mentioned in HPI Physical Exam General Appearance: cachetic Lines, tubes and drains: peripheral HEENT: normocephalic, anicteric Neck: non-tender, normal alignment Respiratory/Chest: chest wall non-tender, lungs clear Cardiovascular/Chest: normal peripheral pulses, normal rate Abdomen: normal bowel sounds, non tender Genitourinary/Rectal: normal genital exam, normal rectal exam Extremities: normal range of motion Last 24 Hour Vital Signs Date Time Temp Pulse Resp B/P Pulse Ox O2 Delivery O2 Flow Rate FiO2 10/04/16 13:22 Room Air 21 10/04/16 13:22 Room Air 10/04/16 11:53 98.4 93 21 112/61 97 Room Air 10/04/16 08:54 92 96/57 10/04/16 08:54 96/57 10/04/16 08:15 98.3 92 22 96/57 95 Room Air 10/04/16 07:32 96 18 98 Room Air 10/04/16 07:25 94 16 95 Room Air 10/04/16 03:54 98.1 87 16 115/82 92 Room Air 10/04/16 00:13 94 20 97 Room Air 10/04/16 00:12 93 16 93 Room Air 10/04/16 00:10 93 16 Room Air 10/04/16 00:00 96.9 99 19 125/63 93 Room Air 10/03/16 22:31 96 130/75 10/03/16 21:54 97.2 96 18 130/75 94 Room Air 10/03/16 20:53 97.9 91 20 136/68 94 Room Air 10/03/16 20:45 97.9 91 20 136/68 94 Room Air 10/03/16 19:20 97.9 94 17 140/69 95 Room Air 10/03/16 16:50 97.9 91 18 128/67 96 Nasal Cannula Intake and Output 10/03/16 10/04/16 19:00 07:00 Intake Total 455.0 ml Balance 455.0 ml Intake Oral 120 ml IV Total 335.0 ml # Voids 1 1 Laboratory Tests Test 10/03/16 16:15 10/03/16 16:35 10/04/16 09:15 White Blood Count 15.5 K/UL (4.8-10.8) H 14.5 K/UL (4.8-10.8) H Red Blood Count 3.43 M/UL (4.70-6.10) L 3.01 M/UL (4.70-6.10) L Hemoglobin 10.3 G/DL (14.2-18.0) L 9.0 G/DL (14.2-18.0) L Hematocrit 31.2 % (42.0-52.0) L 27.8 % (42.0-52.0) L Mean Corpuscular Volume 91 FL (80-99) 93 FL (80-99) Mean Corpuscular Hemoglobin 30.1 PG (27.0-31.0) 30.0 PG (27.0-31.0) Mean Corpuscular Hemoglobin Concent 33.1 G/DL (32.0-36.0) 32.5 G/DL (32.0-36.0) Red Cell Distribution Width 15.6 % (11.6-14.8) H 15.5 % (11.6-14.8) H Platelet Count 364 K/UL (150-450) 315 K/UL (150-450) Mean Platelet Volume 7.0 FL (6.5-10.1) 7.1 FL (6.5-10.1) Neutrophils (%) (Auto) % (45.0-75.0) % (45.0-75.0) Lymphocytes (%) (Auto) % (20.0-45.0) % (20.0-45.0) Monocytes (%) (Auto) % (1.0-10.0) % (1.0-10.0) Eosinophils (%) (Auto) % (0.0-3.0) % (0.0-3.0) Basophils (%) (Auto) % (0.0-2.0) % (0.0-2.0) Differential Total Cells Counted 100 100 Neutrophils % (Manual) 87 % (45-75) H 89 % (45-75) H Lymphocytes % (Manual) 7 % (20-45) L 5 % (20-45) L Monocytes % (Manual) 3 % (1-10) 4 % (1-10) Eosinophils % (Manual) 1 % (0-3) 0 % (0-3) Basophils % (Manual) 0 % (0-2) 2 % (0-2) Band Neutrophils 2 % (0-8) 0 % (0-8) Platelet Estimate Adequate Adequate Platelet Morphology Normal Normal Hypochromasia 1+ 2+ Anisocytosis 1+ 1+ Prothrombin Time 11.4 SEC (9.30-11.50) Prothromb Time International Ratio 1.1 (0.9-1.1) Activated Partial Thromboplast Time 30 SEC (23-33) Sodium Level 145 mEQ/L (135-145) 146 mEQ/L (135-145) H Potassium Level 3.7 mEQ/L (3.4-4.9) 3.1 mEQ/L (3.4-4.9) L Chloride Level 101 mEQ/L (98-107) 104 mEQ/L (98-107) Carbon Dioxide Level 26 mEQ/L (20-30) 24 mEQ/L (20-30) Anion Gap 18 (5-15) H 18 (5-15) H Blood Urea Nitrogen 12 mg/dL (7-23) 11 mg/dL (7-23) Creatinine 0.7 mg/dL (0.7-1.2) 0.8 mg/dL (0.7-1.2) Estimat Glomerular Filtration Rate mL/min (>60) mL/min (>60) Glucose Level 166 mg/dL (74-106) H 105 mg/dL (74-106) Lactic Acid Level 1.10 mmol/L (0.66-2.22) Calcium Level 9.5 mg/dL (8.6-10.2) 9.0 mg/dL (8.6-10.2) Total Bilirubin 0.5 mg/dL (0.0-1.2) Aspartate Amino Transf (AST/SGOT) 16 U/L (5-40) Alanine Aminotransferase (ALT/SGPT) < 5 U/L (3-41) Alkaline Phosphatase 96 U/L (40-129) Total Creatine Kinase 10 U/L (38-174) L Troponin I < 0.30 ng/mL (<=0.30) Pro-B-Type Natriuretic Peptide 270 pg/mL (0-450) Total Protein 7.9 g/dL (6.6-8.7) Albumin 2.6 g/dL (3.5-5.2) L Globulin 5.3 g/dL Albumin/Globulin Ratio 0.4 (1.0-2.7) L Urine Color Yellow Urine Appearance Clear Urine pH 6 (4.5-8.0) Urine Specific [place] 1.015 (1.005-1.035) Urine Protein 2+ (NEGATIVE) H Urine Glucose (UA) Negative (NEGATIVE) Urine Ketones 3+ (NEGATIVE) H Urine Occult Blood 2+ (NEGATIVE) H Urine Nitrite Positive (NEGATIVE) H Urine Bilirubin Negative (NEGATIVE) Urine Urobilinogen 1 MG/DL (0.0-1.0) H Urine Leukocyte Esterase 3+ (NEGATIVE) H Urine RBC 5-10 /HPF (0 - 0) H Urine WBC 10-15 /HPF (0 - 0) H Urine Squamous Epithelial Cells None /LPF (NONE/OCC) Urine Amorphous Sediment Moderate /LPF (NONE) H Urine Bacteria Moderate /HPF (NONE) H Magnesium Level 1.6 mg/dL (1.7-2.5) L Microbiology Date/Time Source Procedure Growth Status 10/03/16 16:35 Urine,Clean Catch Urine Culture - Preliminary Resulted Height (Feet): 5 Height (Inches): 3.00 Weight (Pounds): 120 Medications Current Medications Medications (Trade) Dose Ordered Sig/Jose Armando Route PRN Reason Start Time Stop Time Status Last Admin Dose Admin Acetaminophen (Tylenol) 650 mg Q6H PRN ORAL Mild Pain/Temp > 100.5 10/03/16 20:30 11/02/16 20:29 Albuterol/ Ipratropium (DuoNeb 0.5-3(2.5)mg/3ml) 3 ml Q4H PRN HHN Shortness of Breath 10/03/16 20:30 10/08/16 20:29 Albuterol/ Ipratropium (DuoNeb 0.5-3(2.5)mg/3ml) 3 ml Q6HR HHN 10/04/16 00:00 10/09/16 00:00 10/04/16 07:25 Aspirin (Ecotrin) 81 mg DAILY ORAL 10/04/16 09:00 11/03/16 08:59 10/04/16 08:46 Atorvastatin Calcium (Lipitor) 80 mg BEDTIME ORAL 10/03/16 21:45 11/02/16 21:44 10/03/16 22:30 Bisacodyl (Dulcolax) 10 mg DAILYPRN PRN ORAL Constipation 10/03/16 20:30 11/02/16 20:29 Bisacodyl (Dulcolax) 10 mg HSPRN PRN RECTAL Constipation 10/03/16 20:30 11/02/16 20:29 Clopidogrel Bisulfate (Plavix) 75 mg DAILY ORAL 10/04/16 09:00 11/03/16 08:59 10/04/16 08:46 Dextrose (Dextrose 50%) STAT PRN IV Hypoglycemia 10/03/16 20:30 11/02/16 20:29 Dextrose STAT PRN IV Hypoglycemia 10/04/16 00:45 11/03/16 00:44 Docusate Sodium (Colace) 100 mg EVERY 12 HOURS ORAL 10/03/16 21:45 11/02/16 21:44 10/04/16 08:47 Gentamicin Sulfate ([facility]) 1 drop Q6HR BOTH EYES 10/03/16 21:45 10/10/16 21:44 10/04/16 11:59 Guaifenesin 600 mg 600 mg TWICE A DAY ORAL 10/03/16 21:45 11/02/16 21:44 10/04/16 08:47 Heparin Sodium (Porcine) (Heparin 5000 units/ml) 5,000 units EVERY 12 HOURS SUBQ 10/03/16 21:45 11/02/16 21:44 10/04/16 08:54 Insulin Aspart (NovoLOG) BEFORE MEALS AND HS SUBQ 10/04/16 06:30 11/03/16 06:29 Latanoprost (Xalatan) 1 drop BEDTIME BOTH EYES 10/03/16 21:45 11/02/16 21:44 10/03/16 22:29 Lisinopril (Zestril) 10 mg DAILY ORAL 10/04/16 09:00 11/03/16 08:59 Lorazepam (Ativan) 0.5 mg Q6H PRN ORAL anxiety/agitation 10/03/16 20:30 10/10/16 20:29 Magnesium Hydroxide (Mom) 30 ml DAILY PRN ORAL Constipation 10/03/16 20:30 11/02/16 20:29 Magnesium Hydroxide (Mom) 30 ml HSPRN PRN ORAL Constipation at bedtime 10/03/16 20:30 11/02/16 20:29 Magnesium Sulfate (Magnesium Sulfate 1gm/100ml) 100 ml @ 100 mls/hr Q1H IVPB 10/04/16 16:00 10/04/16 17:59 Metoprolol Tartrate (Lopressor) 12.5 mg Q12HR ORAL 10/03/16 21:45 11/02/16 21:44 10/03/16 22:31 Multivitamins (Multivitamins) 1 tab DAILY ORAL 10/04/16 09:00 11/03/16 08:59 10/04/16 08:46 Ondansetron HCl (Zofran) 4 mg Q6H PRN IVP Nausea & Vomiting 10/03/16 20:30 11/02/16 20:29 Ondansetron HCl (Zofran) 4 mg Q6H PRN ORAL Nausea & Vomiting 10/03/16 20:30 11/02/16 20:29 Piperacillin Sod/ Tazobactam Sod/ Sodium Chloride (Zosyn/Sodium Chloride) 110 ml @ 27.5 mls/hr Q8HR IVPB 10/03/16 22:00 10/10/16 21:59 10/04/16 14:36 Polyethylene Glycol (Miralax) 17 gm HSPRN PRN ORAL Constipation 10/03/16 20:30 11/02/16 20:29 Sodium 1,000 ml @ 75 mls/hr [id number] IV 10/04/16 18:00 11/03/16 17:59 Tamsulosin HCl (Flomax) 0.4 mg BEDTIME ORAL 10/03/16 21:45 11/02/16 21:44 10/03/16 22:31 Vancomycin HCl 1 ea 1 ea DAILY PRN MISC Per rx protocol 10/03/16 20:30 11/02/16 20:29 Vancomycin HCl/ Dextrose (Vancomycin/D5W) 275 ml @ 183.708 mls/hr Q24H IVPB 10/04/16 18:00 10/09/16 17:59 Assessment/Plan Problem List: (1) Sepsis ICD Codes: A41.9 - Sepsis, unspecified organism SNOMED: 65109702 (2) UTI (urinary tract infection) ICD Codes: N39.0 - Urinary tract infection, site not specified SNOMED: 84934683 Qualifiers: Qualified Codes: N30.00 - Acute cystitis without hematuria (3) Diabetes mellitus ICD Codes: E11.9 - Type 2 diabetes mellitus without complications SNOMED: 26128979 (4) CAD (coronary artery disease) ICD Codes: I25.10 - Atherosclerotic heart disease of [place] coronary artery without angina pectoris SNOMED: 00971829 (5) PVD (peripheral vascular disease) ICD Codes: I73.9 - Peripheral vascular disease, unspecified SNOMED: 729833252 (6) Resides in [facility] facility ICD Codes: Z59.3 - Problems related to living in residential institution SNOMED: 342640266 Assessment/Plan christensen cultures IV antibiotics check cultures wound care symptomatic treatment dvt prophylaxis SRIDHAR SALEEM Oct 04, 2016 16:20
[2016-10-04] MEDS: 1/2NS w/KCl 20mEq 1000ml 1,000 ML IV SCH (17:27)
[2016-10-04] MEDS: Vancomycin 1gm in D5W 275ml IVPB SCH (19:50)
[2016-10-04] MEDS: Tamsulosin 0.4mg cap ORAL SCH (21:56)
[2016-10-04] MEDS: Atorvastatin 80mg tab ORAL SCH (21:57)
--- NOTE | 2016-10-04 22:12 | Infectious Diseases Prog Note ---
Assessment/Plan Assessment/Plan Full consult dictated: A) 1) uti, sepsis, leukocytosis, possible hcap 2) pmh noted 3) allergies - negative P) 1) vancomycin and zosyn 2) check cultures, labs and chest x-ray 3) thank you Subjective Allergies: Coded Allergies: No Known Allergies (Unverified , 07/01/16) Objective Vital Signs Last 24 Hour Vital Signs Date Time Temp Pulse Resp B/P Pulse Ox O2 Delivery O2 Flow Rate FiO2 10/04/16 21:56 93 122/67 10/04/16 20:06 93 18 95 Room Air 10/04/16 20:00 98.2 100 20 122/67 96 Room Air 10/04/16 19:52 95 18 93 Room Air 10/04/16 16:15 98.4 79 20 103/59 97 Room Air 10/04/16 13:22 Room Air 10/04/16 13:22 Room Air 10/04/16 11:53 98.4 93 21 112/61 97 Room Air 10/04/16 08:54 92 96/57 10/04/16 08:54 96/57 10/04/16 08:15 98.3 92 22 96/57 95 Room Air 10/04/16 07:32 96 18 98 Room Air 10/04/16 07:25 94 16 95 Room Air 10/04/16 03:54 98.1 87 16 115/82 92 Room Air 10/04/16 00:13 94 20 97 Room Air 10/04/16 00:12 93 16 93 Room Air 10/04/16 00:10 93 16 Room Air 10/04/16 00:00 96.9 99 19 125/63 93 Room Air 10/03/16 22:31 96 130/75 Height (Feet): 5 Height (Inches): 3.00 Weight (Pounds): 120 Microbiology Date/Time Source Procedure Growth Status 10/03/16 16:35 Urine,Clean Catch Urine Culture - Preliminary Resulted Laboratory Tests Test 10/04/16 09:15 White Blood Count 14.5 K/UL (4.8-10.8) H Red Blood Count 3.01 M/UL (4.70-6.10) L Hemoglobin 9.0 G/DL (14.2-18.0) L Hematocrit 27.8 % (42.0-52.0) L Mean Corpuscular Volume 93 FL (80-99) Mean Corpuscular Hemoglobin 30.0 PG (27.0-31.0) Mean Corpuscular Hemoglobin Concent 32.5 G/DL (32.0-36.0) Red Cell Distribution Width 15.5 % (11.6-14.8) H Platelet Count 315 K/UL (150-450) Mean Platelet Volume 7.1 FL (6.5-10.1) Neutrophils (%) (Auto) % (45.0-75.0) Lymphocytes (%) (Auto) % (20.0-45.0) Monocytes (%) (Auto) % (1.0-10.0) Eosinophils (%) (Auto) % (0.0-3.0) Basophils (%) (Auto) % (0.0-2.0) Differential Total Cells Counted 100 Neutrophils % (Manual) 89 % (45-75) H Lymphocytes % (Manual) 5 % (20-45) L Monocytes % (Manual) 4 % (1-10) Eosinophils % (Manual) 0 % (0-3) Basophils % (Manual) 2 % (0-2) Band Neutrophils 0 % (0-8) Platelet Estimate Adequate Platelet Morphology Normal Hypochromasia 2+ Anisocytosis 1+ Sodium Level 146 mEQ/L (135-145) H Potassium Level 3.1 mEQ/L (3.4-4.9) L Chloride Level 104 mEQ/L (98-107) Carbon Dioxide Level 24 mEQ/L (20-30) Anion Gap 18 (5-15) H Blood Urea Nitrogen 11 mg/dL (7-23) Creatinine 0.8 mg/dL (0.7-1.2) Estimat Glomerular Filtration Rate mL/min (>60) Glucose Level 105 mg/dL (74-106) Calcium Level 9.0 mg/dL (8.6-10.2) Magnesium Level 1.6 mg/dL (1.7-2.5) L Current Medications Medications (Trade) Dose Ordered Sig/Jose Armando Route PRN Reason Start Time Stop Time Status Last Admin Dose Admin Acetaminophen (Tylenol) 650 mg Q6H PRN ORAL Mild Pain/Temp > 100.5 10/03/16 20:30 11/02/16 20:29 Albuterol/ Ipratropium (DuoNeb 0.5-3(2.5)mg/3ml) 3 ml Q4H PRN HHN Shortness of Breath 10/03/16 20:30 10/08/16 20:29 Albuterol/ Ipratropium (DuoNeb 0.5-3(2.5)mg/3ml) 3 ml Q6HR HHN 10/04/16 00:00 10/09/16 00:00 10/04/16 19:48 Aspirin (Ecotrin) 81 mg DAILY ORAL 10/04/16 09:00 11/03/16 08:59 10/04/16 08:46 Atorvastatin Calcium (Lipitor) 80 mg BEDTIME ORAL 10/03/16 21:45 11/02/16 21:44 10/04/16 21:57 Bisacodyl (Dulcolax) 10 mg DAILYPRN PRN ORAL Constipation 10/03/16 20:30 11/02/16 20:29 Bisacodyl (Dulcolax) 10 mg HSPRN PRN RECTAL Constipation 10/03/16 20:30 11/02/16 20:29 Clopidogrel Bisulfate (Plavix) 75 mg DAILY ORAL 10/04/16 09:00 11/03/16 08:59 10/04/16 08:46 Dextrose (Dextrose 50%) STAT PRN IV Hypoglycemia 10/03/16 20:30 11/02/16 20:29 Dextrose STAT PRN IV Hypoglycemia 10/04/16 00:45 11/03/16 00:44 Docusate Sodium (Colace) 100 mg EVERY 12 HOURS ORAL 10/03/16 21:45 11/02/16 21:44 10/04/16 21:56 [facility] 1 drop Q6HR BOTH EYES 10/03/16 21:45 10/10/16 21:44 10/04/16 17:28 Guaifenesin 600 mg 600 mg TWICE A DAY ORAL 10/03/16 21:45 11/02/16 21:44 10/04/16 19:50 Heparin Sodium (Porcine) (Heparin 5000 units/ml) 5,000 units EVERY 12 HOURS SUBQ 10/03/16 21:45 11/02/16 21:44 10/04/16 22:00 Insulin Aspart (NovoLOG) BEFORE MEALS AND HS SUBQ 10/04/16 06:30 11/03/16 06:29 10/04/16 21:00 Latanoprost (Xalatan) 1 drop BEDTIME BOTH EYES 10/03/16 21:45 11/02/16 21:44 10/04/16 21:57 Lisinopril (Zestril) 10 mg DAILY ORAL 10/04/16 09:00 11/03/16 08:59 Lorazepam (Ativan) 0.5 mg Q6H PRN ORAL anxiety/agitation 10/03/16 20:30 10/10/16 20:29 Magnesium Hydroxide (Mom) 30 ml DAILY PRN ORAL Constipation 10/03/16 20:30 11/02/16 20:29 Magnesium Hydroxide (Mom) 30 ml HSPRN PRN ORAL Constipation at bedtime 10/03/16 20:30 11/02/16 20:29 Metoprolol Tartrate (Lopressor) 12.5 mg Q12HR ORAL 10/03/16 21:45 11/02/16 21:44 10/04/16 21:56 Multivitamins (Multivitamins) 1 tab DAILY ORAL 10/04/16 09:00 11/03/16 08:59 10/04/16 08:46 Ondansetron HCl (Zofran) 4 mg Q6H PRN IVP Nausea & Vomiting 10/03/16 20:30 11/02/16 20:29 Ondansetron HCl (Zofran) 4 mg Q6H PRN ORAL Nausea & Vomiting 10/03/16 20:30 11/02/16 20:29 Piperacillin Sod/ Tazobactam Sod/ Sodium Chloride (Zosyn/Sodium Chloride) 110 ml @ 27.5 mls/hr Q8HR IVPB 10/03/16 22:00 10/10/16 21:59 10/04/16 14:36 Polyethylene Glycol (Miralax) 17 gm HSPRN PRN ORAL Constipation 10/03/16 20:30 11/02/16 20:29 Sodium (0.45%NS w/KCl 20mEq 1000ml) 1,000 ml @ 75 mls/hr [id number] IV 10/04/16 18:00 11/03/16 17:59 10/04/16 17:27 Tamsulosin HCl (Flomax) 0.4 mg BEDTIME ORAL 10/03/16 21:45 11/02/16 21:44 10/04/16 21:56 Vancomycin HCl 1 ea 1 ea DAILY PRN MISC Per rx protocol 10/03/16 20:30 11/02/16 20:29 Vancomycin HCl/ Dextrose (Vancomycin/D5W) 275 ml @ 183.708 mls/hr Q24H IVPB 10/04/16 18:00 10/09/16 17:59 10/04/16 19:50 ARLIN TRIANA Oct 04, 2016 22:12
[2016-10-05] MEDS: Gentamicin 0.3% Opth Soln 5ml BOTH EYES SCH ×4 (00:05→17:54)
[2016-10-05] MEDS: Piperacillin/Tazobactam 3.375 GM in NS 110 ML IVPB SCH ×4 (00:06→20:47)
[2016-10-05 04:00] VITALS: BP 109/60
--- NOTE | 2016-10-05 05:38 | General Progress Note ---
Assessment/Plan Problem List: (1) Sepsis ICD Codes: A41.9 - Sepsis, unspecified organism SNOMED: 78678520 (2) UTI (urinary tract infection) ICD Codes: N39.0 - Urinary tract infection, site not specified SNOMED: 95029786 Qualifiers: Qualified Codes: N30.00 - Acute cystitis without hematuria (3) HCAP (healthcare-associated pneumonia) ICD Codes: J18.9 - Pneumonia, unspecified organism SNOMED: 981647932 (4) CAD (coronary artery disease) ICD Codes: I25.10 - Atherosclerotic heart disease of [place] coronary artery without angina pectoris SNOMED: 01505235 (5) PVD (peripheral vascular disease) ICD Codes: I73.9 - Peripheral vascular disease, unspecified SNOMED: 391730183 (6) Diabetes mellitus ICD Codes: E11.9 - Type 2 diabetes mellitus without complications SNOMED: 65100071 Qualifiers: (7) CVA (cerebral vascular accident) ICD Codes: I63.9 - Cerebral infarction, unspecified SNOMED: 877407372 (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 ICD Codes: L97.423 - Non-pressure 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 SNOMED: 589048187, 074679882, 697147584 (9) Hypokalemia ICD Codes: E87.6 - Hypokalemia SNOMED: 55122712 (10) Hypomagnesemia ICD Codes: E83.42 - Hypomagnesemia SNOMED: 728186695 (11) Hypernatremia ICD Codes: E87.0 - Hyperosmolality and hypernatremia SNOMED: 32051022 Status: stable Assessment/Plan Appreciate ID and pulm rec's Cont empiric vanco and zosyn (10/03-) mIVFs F/u blood cultures F/u urine culture Swallow eval Mucinex BID Duonebs ATC and PRN Cont SNF meds GAYLA PT/OT Wound care DVT Prophylaxis: SCD, HSQ Code Status: DNR/DNI Hospital Classification Declaration: Based on this initial evaluation, and depending on the patient's clinical course, I anticipate that this patient will require hospitalization for 2-3 days for sepsis, HCAP, UTI and close respiratory /hemodynamic monitoring. Disposition: Once the patient is stable to leave the hospital, I anticipate the patient will likely be discharged to the following environment: back to SNF I spent 42 minutes on this patient's case, and >50% was dedicated to counseling and/or care coordination. Discussed with patient/family, nursing staff, SW/CM, pulm, ID regarding clinical status, treatment course, and disposition planning. D/w pulm re pnuemonia. D/w ID re abx Time of note may not reflect time of encounter. Subjective Date patient seen: Oct 04, 2016 ROS Limited/Unobtainable: Yes Constitutional: Reports: weakness HEENT: Reports: no symptoms Cardiovascular: Reports: no symptoms Respiratory: Reports: no symptoms Gastrointestinal/Abdominal: Reports: no symptoms Genitourinary: Reports: no symptoms Neurologic/Psychiatric: Reports: no symptoms Endocrine: Reports: no symptoms Hematologic/Lymphatic: Reports: no symptoms Allergies: Coded Allergies: No Known Allergies (Unverified , 07/01/16) Subjective WBC slightly down Afebrile Pt doing ok. Appetite slightly improved. Denies f/c, n/v, d/c, chest pain, SOB Objective Last 24 Hour Vital Signs Date Time Temp Pulse Resp B/P Pulse Ox O2 Delivery O2 Flow Rate FiO2 10/05/16 00:46 Room Air 10/05/16 00:45 Room Air 10/04/16 23:45 97.0 99 18 116/58 94 Room Air 10/04/16 21:56 93 122/67 10/04/16 20:06 93 18 95 Room Air 21 10/04/16 20:00 98.2 100 20 122/67 96 Room Air 10/04/16 19:52 95 18 93 Room Air 10/04/16 16:15 98.4 79 20 103/59 97 Room Air 10/04/16 13:22 Room Air 21 10/04/16 13:22 Room Air 21 10/04/16 11:53 98.4 93 21 112/61 97 Room Air 10/04/16 08:54 92 96/57 10/04/16 08:54 96/57 10/04/16 08:15 98.3 92 22 96/57 95 Room Air 10/04/16 07:32 96 18 98 Room Air 21 10/04/16 07:25 94 16 95 Room Air 21 Intake and Output 10/04/16 10/05/16 19:00 07:00 Intake Total 707.5 ml 572.416 ml Balance 707.5 ml 572.416 ml Intake Oral 680 ml IV Total 27.5 ml 572.416 ml # Voids 4 Laboratory Tests 10/04/16 09:15: White Blood Count 14.5H, Red Blood Count 3.01L, Hemoglobin 9.0L, Hematocrit 27.8L, Mean Corpuscular Volume 93, Mean Corpuscular Hemoglobin 30.0, Mean Corpuscular Hemoglobin Concent 32.5, Red Cell Distribution Width 15.5H, Platelet Count 315, Mean Platelet Volume 7.1, Neutrophils (%) (Auto) , Lymphocytes (%) (Auto) , Monocytes (%) (Auto) , Eosinophils (%) (Auto) , Basophils (%) (Auto) , Differential Total Cells Counted 100, Neutrophils % ( Manual) 89H, Lymphocytes % (Manual) 5L, Monocytes % (Manual) 4, Eosinophils % ( Manual) 0, Basophils % (Manual) 2, Band Neutrophils 0, Platelet Estimate Adequate, Platelet Morphology Normal, Hypochromasia 2+, Anisocytosis 1+, Sodium Level 146H, Potassium Level 3.1L, Chloride Level 104, Carbon Dioxide Level 24, Anion Gap 18H, Blood Urea Nitrogen 11, Creatinine 0.8, Estimat Glomerular Filtration Rate , Glucose Level 105, Calcium Level 9.0, Magnesium Level 1.6L Height (Feet): 5 Height (Inches): 3.00 Weight (Pounds): 120 Objective General: alert, cooperative, no distress, appears stated age Head: normocephalic, without obvious abnormality, atraumatic Eyes: conjunctivae/corneas clear. PERRL, EOM's intact Throat: lips, mucosa, and tongue normal. MMM Neck: supple, symmetrical, trachea midline, and no JVD Lungs: clear to auscultation bilaterally Heart: regular rate and rhythm, S1, S2 normal, no murmur, click, rub or gallop Abdomen: soft, non-tender, non-distended, bowel sounds normal; no masses or organomegaly Extremities: extremities normal, atraumatic, no cyanosis or edema Pulses: 2+ and symmetric Skin: skin color, texture, turgor normal; no rashes or lesions Neurologic: grossly normal, no focal deficits Bharat Castle M.D. Oct 05, 2016 05:38
[2016-10-05] MEDS: 1/2NS w/KCl 20mEq 1000ml 1,000 ML IV SCH ×2 (06:21→20:43)
[2016-10-05] MEDS: NovoLOG Insulin Flexpen SUBQ SCH ×4 (06:22→20:47)
[2016-10-05 08:15] VITALS: BP 125/61
[2016-10-05 08:36] LABS: BASOPHILS % (AUTO) 0.6 % (0.0-2.0); EOSINOPHILS % (AUTO) 2.6 % (0.0-3.0); LYMPHOCYTES % (AUTO) 11.8 % (20.0-45.0); MEAN CORPUSCULAR HGB CONC 31.2 G/DL (32.0-36.0); MEAN CORPUSCULAR VOLUME 93 FL (80-99); MEAN PLATELET VOLUME 7.1 FL (6.5-10.1); MONOCYTES % (AUTO) 4.8 % (1.0-10.0); NEUTROPHILS % (AUTO) 80.2 % (45.0-75.0); PLATELET COUNT 291 K/UL (150-450); RED CELL DISTRIBUTION WIDTH 15.4 % (11.6-14.8)
[2016-10-05] MEDS: DuoNeb 0.5-3(2.5)mg/3ml neb HHN SCH ×4 (08:37→18:44)
[2016-10-05 08:54] LABS: CALCIUM 8.9 mg/dL (8.6-10.2); CARBON DIOXIDE 25 mEQ/L (20-30); CHLORIDE 105 mEQ/L (98-107); CREATININE 0.7 mg/dL (0.7-1.2); HEMOLYSIS 1; MAGNESIUM 2.1 mg/dL (1.7-2.5); PHOSPHORUS 2.7 mg/dL (2.5-4.8); SODIUM 147 mEQ/L (135-145)
[2016-10-05 09:00] LABS: ANION GAP 17 (5-15)
[2016-10-05 09:29] LABS: POTASSIUM 2.7 mEQ/L (3.4-4.9)
--- NOTE | 2016-10-05 09:47 | Pulmonology Progress Note ---
Assessment/Plan Assessment/Plan ASSESSMENT sepsis possible HCAP UTI CAD with hx of NSTEMI PVD DM Hx of CVA L heel ischemic ulcer with necrosis e/lyte imbalance: hypo Mg, hypo K HTN anemia dysphagia PLAN OF CARE MS floor IVF abx, ID follows blood cx preliminary negative, urine cx + GNB, sputum cx not collected Fup with CXR in am prior CXR with Right infrahilar possible infiltrate, swallow eval with evidence of moderate dysphagia diet as recommended by ST for quality of life strict aspiration precaution 1 to 1 feeding O2 HHN prn DVT prophylaxis continue ASA ,statin, Plavix BP management with ZACHERY and BB BS management with SS of insulin wound care as per wound nurse recommendations resume SNF meds bowel regimen PT/OT Mg stable after replacement, replace K, check K in am anemia workup case discussed and evaluated by supervising physician Subjective Allergies: Coded Allergies: No Known Allergies (Unverified , 07/01/16) Subjective leukocytosis resolved , afebrile on RA sat stable K-2.7 HH with trend down Objective Last 24 Hour Vital Signs Date Time Temp Pulse Resp B/P Pulse Ox O2 Delivery O2 Flow Rate FiO2 10/05/16 08:15 98.3 76 20 125/61 95 Room Air 10/05/16 04:00 96.8 81 20 109/60 93 Room Air 10/05/16 00:46 Room Air 10/05/16 00:45 Room Air 10/04/16 23:45 97.0 99 18 116/58 94 Room Air 10/04/16 21:56 93 122/67 10/04/16 20:06 93 18 95 Room Air 10/04/16 20:00 98.2 100 20 122/67 96 Room Air 10/04/16 19:52 95 18 93 Room Air 10/04/16 16:15 98.4 79 20 103/59 97 Room Air 10/04/16 13:22 Room Air 21 10/04/16 13:22 Room Air 21 10/04/16 11:53 98.4 93 21 112/61 97 Room Air Intake and Output 10/04/16 10/05/16 19:00 07:00 Intake Total 707.5 ml 927.416 ml Balance 707.5 ml 927.416 ml Intake Oral 680 ml IV Total 27.5 ml 927.416 ml # Voids 4 2 General Appearance: no acute distress, other - awake,weak, responsive, elderly male HEENT: normocephalic, atraumatic, anicteric Respiratory/Chest: lungs clear - with moderate air entry , no respiratory distress Cardiovascular: normal rate, regular rhythm, no JVD Abdomen: normal bowel sounds, soft, non tender Extremities: no edema, pedal pulses normal Skin: other - L heel ulcer Neurologic/Psychiatric: abnormal gait - bedridden, alert, responsive Musculoskeletal: atrophy - BLE Microbiology Date/Time Source Procedure Growth Status 10/03/16 16:20 Blood Blood Culture - Preliminary NO GROWTH AFTER 24 HOURS Resulted 10/03/16 16:15 Blood Blood Culture - Preliminary NO GROWTH AFTER 24 HOURS Resulted 10/03/16 16:35 Urine,Clean Catch Urine Culture - Preliminary Gram Negative Bacillus 1 Resulted Laboratory Tests 10/05/16 08:15: White Blood Count 10.0, Red Blood Count 3.00L, Hemoglobin 8.7L, Hematocrit 27.9L , Mean Corpuscular Volume 93, Mean Corpuscular Hemoglobin 29.0, Mean Corpuscular Hemoglobin Concent 31.2L, Red Cell Distribution Width 15.4H, Platelet Count 291, Mean Platelet Volume 7.1, Neutrophils (%) (Auto) 80.2H, Lymphocytes (%) (Auto) 11.8L, Monocytes (%) (Auto) 4.8, Eosinophils (%) (Auto) 2.6, Basophils (%) (Auto) 0.6, Sodium Level 147H, Potassium Level 2.7*L, Chloride Level 105, Carbon Dioxide Level 25, Anion Gap 17H, Blood Urea Nitrogen 9, Creatinine 0.7, Estimat Glomerular Filtration Rate , Glucose Level 88, Calcium Level 8.9, Phosphorus Level 2.7, Magnesium Level 2.1 Current Medications Medications (Trade) Dose Ordered Sig/Jose Armando Route PRN Reason Start Time Stop Time Status Last Admin Dose Admin Acetaminophen (Tylenol) 650 mg Q6H PRN ORAL Mild Pain/Temp > 100.5 10/03/16 20:30 11/02/16 20:29 Albuterol/ Ipratropium (DuoNeb 0.5-3(2.5)mg/3ml) 3 ml Q4H PRN HHN Shortness of Breath 10/03/16 20:30 10/08/16 20:29 Albuterol/ Ipratropium (DuoNeb 0.5-3(2.5)mg/3ml) 3 ml Q6HR HHN 10/04/16 00:00 10/09/16 00:00 10/05/16 08:37 Aspirin (Ecotrin) 81 mg DAILY ORAL 10/04/16 09:00 11/03/16 08:59 10/04/16 08:46 Atorvastatin Calcium (Lipitor) 80 mg BEDTIME ORAL 10/03/16 21:45 11/02/16 21:44 10/04/16 21:57 Bisacodyl (Dulcolax) 10 mg DAILYPRN PRN ORAL Constipation 10/03/16 20:30 11/02/16 20:29 Bisacodyl (Dulcolax) 10 mg HSPRN PRN RECTAL Constipation 10/03/16 20:30 11/02/16 20:29 Clopidogrel Bisulfate (Plavix) 75 mg DAILY ORAL 10/04/16 09:00 11/03/16 08:59 10/04/16 08:46 Dextrose (Dextrose 50%) STAT PRN IV Hypoglycemia 10/03/16 20:30 11/02/16 20:29 Dextrose STAT PRN IV Hypoglycemia 10/04/16 00:45 11/03/16 00:44 Docusate Sodium (Colace) 100 mg EVERY 12 HOURS ORAL 10/03/16 21:45 11/02/16 21:44 10/04/16 21:56 [facility] 1 drop Q6HR BOTH EYES 10/03/16 21:45 10/10/16 21:44 10/05/16 06:21 Guaifenesin 600 mg 600 mg TWICE A DAY ORAL 10/03/16 21:45 11/02/16 21:44 10/04/16 19:50 Heparin Sodium (Porcine) (Heparin 5000 units/ml) 5,000 units EVERY 12 HOURS SUBQ 10/03/16 21:45 11/02/16 21:44 10/04/16 22:00 Insulin Aspart (NovoLOG) BEFORE MEALS AND HS SUBQ 10/04/16 06:30 11/03/16 06:29 10/04/16 21:00 Latanoprost (Xalatan) 1 drop BEDTIME BOTH EYES 10/03/16 21:45 11/02/16 21:44 10/04/16 21:57 Lisinopril (Zestril) 10 mg DAILY ORAL 10/04/16 09:00 11/03/16 08:59 Lorazepam (Ativan) 0.5 mg Q6H PRN ORAL anxiety/agitation 10/03/16 20:30 10/10/16 20:29 Magnesium Hydroxide (Mom) 30 ml DAILY PRN ORAL Constipation 10/03/16 20:30 11/02/16 20:29 Magnesium Hydroxide (Mom) 30 ml HSPRN PRN ORAL Constipation at bedtime 10/03/16 20:30 11/02/16 20:29 Metoprolol Tartrate (Lopressor) 12.5 mg Q12HR ORAL 10/03/16 21:45 11/02/16 21:44 10/04/16 21:56 Multivitamins (Multivitamins) 1 tab DAILY ORAL 10/04/16 09:00 11/03/16 08:59 10/04/16 08:46 Ondansetron HCl (Zofran) 4 mg Q6H PRN IVP Nausea & Vomiting 10/03/16 20:30 11/02/16 20:29 Ondansetron HCl (Zofran) 4 mg Q6H PRN ORAL Nausea & Vomiting 10/03/16 20:30 11/02/16 20:29 Piperacillin Sod/ Tazobactam Sod/ Sodium Chloride (Zosyn/Sodium Chloride) 110 ml @ 27.5 mls/hr Q8HR IVPB 10/03/16 22:00 10/10/16 21:59 10/05/16 06:21 Polyethylene Glycol (Miralax) 17 gm HSPRN PRN ORAL Constipation 10/03/16 20:30 11/02/16 20:29 Sodium (0.45%NS w/KCl 20mEq 1000ml) 1,000 ml @ 75 mls/hr [id number] IV 10/04/16 18:00 11/03/16 17:59 10/05/16 06:21 Tamsulosin HCl (Flomax) 0.4 mg BEDTIME ORAL 10/03/16 21:45 11/02/16 21:44 10/04/16 21:56 Vancomycin HCl 1 ea 1 ea DAILY PRN MISC Per rx protocol 10/03/16 20:30 11/02/16 20:29 Vancomycin HCl/ Dextrose (Vancomycin/D5W) 275 ml @ 183.708 mls/hr Q24H IVPB 10/04/16 18:00 10/09/16 17:59 10/04/16 19:50 Kit (Mahogany)Joanna NP Oct 05, 2016 09:47
[2016-10-05] MEDS: Docusate 100mg cap ORAL SCH ×2 (10:30→20:43)
[2016-10-05] MEDS: Aspirin EC 81mg tab ORAL SCH (10:31)
[2016-10-05] MEDS: Metoprolol 25mg tab ORAL SCH ×2 (10:31→20:44)
[2016-10-05] MEDS: guaiFENesin ER 600mg tab ORAL SCH ×2 (10:34→17:54)
[2016-10-05] MEDS: Lisinopril 10mg tab ORAL SCH (10:35)
[2016-10-05] MEDS: Heparin 5000 units/ml inj SUBQ SCH ×2 (10:38→20:45)
--- NOTE | 2016-10-05 11:30 | Diagnostic Imaging Report ---
Indication: Cough Technique: One view of the chest Comparison: 10/03/2016 Findings: There is right perihilar interstitial prominence and bronchial wall thickening, possibly some infrahilar infiltrate. This may be increased from the prior exam. The remainder of the lungs and pleural spaces are clear. Heart size is normal Impression: Right infrahilar possible infiltrate, if real slightly increased from previous study. Findings Evidence of bronchitis changes Other findings as noted
[2016-10-05 11:53] VITALS: BP 108/49
--- NOTE | 2016-10-05 12:26 | Wound Care Consultation ---
Wound Assessment Wound Assessment #1: Wound Present on Admission: Yes New Wound: No Status Change of Wound: No Wound Location Body Site Modif: mid Wound Location Body Site: sacral Wound Type: pressure ulcer Abi Test: Does not Abi Pressure Ulcer Stage: II - scattered Wound Thickness: Partial Thickness Wound Length: 7.5 Wound Width: 5.5 Wound Depth: 0.1 Percent of Wound Superior/Red: 100 Wound Drainage Description: Serosanguineous Wound Drainage Amount: Scant Wound Drainage Odor: None/Absent Tissue Surrounding Wound: Erythemic Wound General Appearance: Reddened Wound Assessment #2: Wound Number: #2 Wound Present on Admission: Yes New Wound: No Status Change of Wound: No Wound Location Body Site Modif: right Wound Location Body Site: heel Wound Type: pressure ulcer Abi Test: Does not Abi Pressure Ulcer Stage: deep tissue injury Wound Thickness: Full Thickness Wound Length: 4.0 Wound Width: 2.0 Wound Depth: utd Percent of Wound Purple/Maroon: 100 Wound Drainage Amount: None Wound Drainage Odor: None/Absent Tissue Surrounding Wound: Erythemic Wound General Appearance: Asymptomatic, Reddened - purple Wound Assessment #3: Wound Number: #3 Wound Present on Admission: Yes New Wound: No Status Change of Wound: No Wound Location Body Site Modif: left Wound Location Body Site: heel Wound Type: pressure ulcer Abi Test: Does not Abi Pressure Ulcer Stage: IV/unstageable Wound Thickness: Full Thickness Wound Length: 5.5 Wound Width: 3.0 Wound Depth: utd Percent of Wound Black/Brown: 100 Wound Drainage Description: Serosanguineous Wound Drainage Amount: Scant Wound Drainage Odor: None/Absent Tissue Surrounding Wound: Indurated Wound General Appearance: Blackened, Draining, Necrotic Wound Assessment #4: Wound Number: #4 Wound Present on Admission: Yes New Wound: No Status Change of Wound: No Wound Location Body Site Modif: right, lower, lateral Wound Location Body Site: leg Wound Type: pressure ulcer Abi Test: Does not Abi Pressure Ulcer Stage: IV/unstageable Wound Thickness: Full Thickness Wound Length: 7.5 Wound Width: 1.5 Wound Depth: utd Percent of Wound Black/Brown: 100 Wound Drainage Amount: None Wound Drainage Odor: None/Absent Tissue Surrounding Wound: Erythemic Wound General Appearance: Blackened Wound Assessment #5: Wound Number: #5 Wound Present on Admission: Yes New Wound: No Status Change of Wound: No Wound Location Body Site Modif: right, anterior Wound Location Body Site: toe - big Wound Type: pressure ulcer Abi Test: Does not Abi Pressure Ulcer Stage: IV/unstageable Wound Thickness: Full Thickness Wound Length: 4.5 Wound Width: 4.0 Wound Depth: utd Percent of Wound Black/Brown: 100 Wound Drainage Description: Serosanguineous Wound Drainage Amount: Scant Wound Drainage Odor: None/Absent Tissue Surrounding Wound: Indurated Wound General Appearance: Blackened Wound Assessment #6: Wound Number: #6 Wound Present on Admission: Yes New Wound: No Status Change of Wound: No Wound Location Body Site Modif: right, lateral Wound Location Body Site: metatarsal head - 1st Wound Type: pressure ulcer Abi Test: Does not Abi Pressure Ulcer Stage: IV/unstageable Wound Thickness: Full Thickness Wound Length: 1.0 Wound Width: 1.0 Wound Depth: utd Percent of Wound Black/Brown: 100 Wound Drainage Amount: None Wound Drainage Odor: None/Absent Tissue Surrounding Wound: Erythemic Wound General Appearance: Blackened Wound Assessment #7: Wound Number: #7 Wound Present on Admission: Yes New Wound: No Status Change of Wound: No Wound Location Body Site Modif: left, lower, lateral Wound Location Body Site: leg Wound Type: pressure ulcer Abi Test: Does not Abi Pressure Ulcer Stage: II Wound Thickness: Partial Thickness Wound Length: 12.0 Wound Width: 1.5 Wound Depth: 0.1 Percent of Wound Superior/Red: 100 Wound Drainage Description: Serosanguineous Wound Drainage Amount: Scant Wound Drainage Odor: None/Absent Tissue Surrounding Wound: Erythemic Wound General Appearance: Reddened Wound Assessment #8: Wound Number: #8 Wound Present on Admission: Yes New Wound: No Status Change of Wound: No Wound Location Body Site Modif: left, lateral Wound Location Body Site: metatarsal head - 1st Wound Type: pressure ulcer Abi Test: Does not Abi Pressure Ulcer Stage: IV/unstageable Wound Thickness: Full Thickness Wound Length: 2.5 Wound Width: 2.0 Wound Depth: utd Percent of Wound Bed Yellow/Wh: 100 Wound Drainage Amount: None Wound Drainage Odor: None/Absent Tissue Surrounding Wound: Indurated Wound Assessment #9: Wound Number: #9 Wound Present on Admission: Yes New Wound: No Status Change of Wound: No Wound Location Body Site Modif: right, lower, anterior Wound Location Body Site: leg Wound Type: scab Abi Test: Does not Abi Wound Thickness: Full Thickness Wound Length: 2.0 Wound Width: 1.5 Wound Depth: utd Percent of Wound Black/Brown: 100 Wound Drainage Amount: None Wound Drainage Odor: None/Absent Tissue Surrounding Wound: Intact Wound Assessment #10: Wound Number: #10 Wound Present on Admission: Yes New Wound: No Status Change of Wound: No Wound Location Body Site Modif: right Wound Location Body Site: elbow Wound Type: pressure ulcer Abi Test: Does not Abi Pressure Ulcer Stage: I Wound Length: 3.0 Wound Width: 2.5 Percent of Wound Superior/Red: 100 Wound Drainage Amount: None Wound Drainage Odor: None/Absent Tissue Surrounding Wound: Intact Wound General Appearance: Reddened Wound Assessment #11: Wound Number: #11 Wound Present on Admission: Yes New Wound: No Status Change of Wound: No Wound Location Body Site Modif: left Wound Location Body Site: elbow Wound Type: pressure ulcer Abi Test: Does not Abi Pressure Ulcer Stage: I Wound Length: 3.0 Wound Width: 3.0 Percent of Wound Superior/Red: 100 Wound Drainage Amount: None Wound Drainage Odor: None/Absent Tissue Surrounding Wound: Intact Wound General Appearance: Reddened Wound Comment #1 Right heel DTI pressure ulcer #2 Left heel Unstageable pressure ulcer with black eschar adhered to wound bed #3 Sacral scattered stage II pressure ulcer #4 Right lateral lower leg unstageable pressure ulcer #5 Left lateral lower leg resolving stage II pressure ulcer #6 Right anterior big toe unstageable pressure ulcer extended to the tip of toe , with black eschar adhered to wound bed #7 Right 1st metatarsal head unstageable pressure ulcer #8 Left 1st metatarsal head unstageable pressure ulcer #9 Right lower anterior leg with dry scab #10 Left elbow stage I pressure ulcer #11 Right elbow stage I pressure ulcer Pt with Hx of PVD, CAD, DM to name the few. Recommendation -Sacral pressure ulcer Cleanse with saline, pat dry, apply Triad cream, cover with Biatain silicone daily and PRN soiled/dislodged -Right heel, Left heel, Right lateral lower leg, Right big toe, Right anterior lower leg, Right 1st metatarsal head and Left 1st metatarsal head Cleanse with saline, pat dry, paint with Betadine, cover with bordered gauze daily and PRN soiled/dislodged -Local wound care per protocol for stage I on left and right elbow -Offload both heels -Heel protector on both heels -Turn and reposition -Low air loss mattress -Optimize nutrition -Podiatry consult -Keep clean and dry -Assess and f/u accordingly for any changes MEMO GONZALES RN Oct 05, 2016 12:26
[2016-10-05 16:05] VITALS: BP 149/81
--- NOTE | 2016-10-05 18:08 | Infectious Diseases Prog Note ---
Assessment/Plan Assessment/Plan Full consult dictated: A) 1) gram neg uti, aspiration pna/hcap, sepsis, leukocytosis 2) pmh noted 3) allergies - negative P) 1) vancomycin and zosyn 2) check cultures, labs and chest x-ray 3) will f/u Subjective Constitutional: Denies: fever HEENT: Reports: congestion Respiratory: Reports: shortness of breath Gastrointestinal/Abdominal: Denies: diarrhea, nausea, vomiting Allergies: Coded Allergies: No Known Allergies (Unverified , 07/01/16) Objective Vital Signs Last 24 Hour Vital Signs Date Time Temp Pulse Resp B/P Pulse Ox O2 Delivery O2 Flow Rate FiO2 10/05/16 16:05 97.7 89 20 149/81 96 Room Air 10/05/16 13:30 90 18 98 Room Air 21 10/05/16 13:25 92 20 97 Room Air 21 10/05/16 11:53 97.6 93 21 108/49 98 Room Air 10/05/16 10:35 125/61 10/05/16 10:31 76 125/61 10/05/16 08:15 98.3 76 20 125/61 95 Room Air 10/05/16 07:35 82 18 95 Room Air 21 10/05/16 07:30 76 20 95 Room Air 21 10/05/16 04:00 96.8 81 20 109/60 93 Room Air 10/05/16 00:46 Room Air 10/05/16 00:45 Room Air 10/04/16 23:45 97.0 99 18 116/58 94 Room Air 10/04/16 21:56 93 122/67 10/04/16 20:06 93 18 95 Room Air 21 10/04/16 20:00 98.2 100 20 122/67 96 Room Air 10/04/16 19:52 95 18 93 Room Air 21 Height (Feet): 5 Height (Inches): 3.00 Weight (Pounds): 120 General Appearance: no acute distress HEENT: normocephalic, atraumatic, anicteric Respiratory/Chest: crackles/rales, rhonchi - bilaterally Cardiovascular: normal rate, regular rhythm Abdomen: normal bowel sounds, soft, non tender, no organomegaly Microbiology Date/Time Source Procedure Growth Status 10/03/16 16:20 Blood Blood Culture - Preliminary NO GROWTH AFTER 24 HOURS Resulted 10/03/16 16:15 Blood Blood Culture - Preliminary NO GROWTH AFTER 24 HOURS Resulted 10/03/16 16:35 Urine,Clean Catch Urine Culture - Preliminary Gram Negative Bacillus 1 Resulted Laboratory Tests Test 10/05/16 08:15 White Blood Count 10.0 K/UL (4.8-10.8) Red Blood Count 3.00 M/UL (4.70-6.10) L Hemoglobin 8.7 G/DL (14.2-18.0) L Hematocrit 27.9 % (42.0-52.0) L Mean Corpuscular Volume 93 FL (80-99) Mean Corpuscular Hemoglobin 29.0 PG (27.0-31.0) Mean Corpuscular Hemoglobin Concent 31.2 G/DL (32.0-36.0) L Red Cell Distribution Width 15.4 % (11.6-14.8) H Platelet Count 291 K/UL (150-450) Mean Platelet Volume 7.1 FL (6.5-10.1) Neutrophils (%) (Auto) 80.2 % (45.0-75.0) H Lymphocytes (%) (Auto) 11.8 % (20.0-45.0) L Monocytes (%) (Auto) 4.8 % (1.0-10.0) Eosinophils (%) (Auto) 2.6 % (0.0-3.0) Basophils (%) (Auto) 0.6 % (0.0-2.0) Sodium Level 147 mEQ/L (135-145) H Potassium Level 2.7 mEQ/L (3.4-4.9) *L Chloride Level 105 mEQ/L (98-107) Carbon Dioxide Level 25 mEQ/L (20-30) Anion Gap 17 (5-15) H Blood Urea Nitrogen 9 mg/dL (7-23) Creatinine 0.7 mg/dL (0.7-1.2) Estimat Glomerular Filtration Rate mL/min (>60) Glucose Level 88 mg/dL (74-106) Calcium Level 8.9 mg/dL (8.6-10.2) Phosphorus Level 2.7 mg/dL (2.5-4.8) Magnesium Level 2.1 mg/dL (1.7-2.5) Current Medications Medications (Trade) Dose Ordered Sig/Jose Armando Route PRN Reason Start Time Stop Time Status Last Admin Dose Admin Acetaminophen (Tylenol) 650 mg Q6H PRN ORAL Mild Pain/Temp > 100.5 10/03/16 20:30 11/02/16 20:29 Albuterol/ Ipratropium (DuoNeb 0.5-3(2.5)mg/3ml) 3 ml Q4H PRN HHN Shortness of Breath 10/03/16 20:30 10/08/16 20:29 Albuterol/ Ipratropium (DuoNeb 0.5-3(2.5)mg/3ml) 3 ml Q6HR HHN 10/04/16 00:00 10/09/16 00:00 10/05/16 13:43 Aspirin (Ecotrin) 81 mg DAILY ORAL 10/04/16 09:00 11/03/16 08:59 10/05/16 10:31 Atorvastatin Calcium (Lipitor) 80 mg BEDTIME ORAL 10/03/16 21:45 11/02/16 21:44 10/04/16 21:57 Bisacodyl (Dulcolax) 10 mg DAILYPRN PRN ORAL Constipation 10/03/16 20:30 11/02/16 20:29 Bisacodyl (Dulcolax) 10 mg HSPRN PRN RECTAL Constipation 10/03/16 20:30 11/02/16 20:29 Clopidogrel Bisulfate (Plavix) 75 mg DAILY ORAL 10/04/16 09:00 11/03/16 08:59 10/05/16 10:35 Dextrose STAT PRN IV Hypoglycemia 10/04/16 00:45 11/03/16 00:44 Docusate Sodium (Colace) 100 mg EVERY 12 HOURS ORAL 10/03/16 21:45 11/02/16 21:44 10/05/16 10:30 Gentamicin Sulfate (Garamycin 0.3% Opt Soln) 1 drop Q6HR BOTH EYES 10/03/16 21:45 10/10/16 21:44 10/05/16 17:54 Guaifenesin 600 mg 600 mg TWICE A DAY ORAL 10/03/16 21:45 11/02/16 21:44 10/05/16 17:54 Heparin Sodium (Porcine) (Heparin 5000 units/ml) 5,000 units EVERY 12 HOURS SUBQ 10/03/16 21:45 11/02/16 21:44 10/05/16 10:38 Insulin Aspart (NovoLOG) BEFORE MEALS AND HS SUBQ 10/04/16 06:30 11/03/16 06:29 10/04/16 21:00 Latanoprost (Xalatan) 1 drop BEDTIME BOTH EYES 10/03/16 21:45 11/02/16 21:44 10/04/16 21:57 Lisinopril (Zestril) 10 mg DAILY ORAL 10/04/16 09:00 11/03/16 08:59 10/05/16 10:35 Lorazepam (Ativan) 0.5 mg Q6H PRN ORAL anxiety/agitation 10/03/16 20:30 10/10/16 20:29 Magnesium Hydroxide (Mom) 30 ml DAILY PRN ORAL Constipation 10/03/16 20:30 11/02/16 20:29 Magnesium Hydroxide (Mom) 30 ml HSPRN PRN ORAL Constipation at bedtime 10/03/16 20:30 11/02/16 20:29 Metoprolol Tartrate (Lopressor) 12.5 mg Q12HR ORAL 10/03/16 21:45 11/02/16 21:44 10/05/16 10:31 Multivitamins (Multivitamins) 1 tab DAILY ORAL 10/04/16 09:00 11/03/16 08:59 10/05/16 10:34 Ondansetron HCl (Zofran) 4 mg Q6H PRN IVP Nausea & Vomiting 10/03/16 20:30 11/02/16 20:29 Ondansetron HCl (Zofran) 4 mg Q6H PRN ORAL Nausea & Vomiting 10/03/16 20:30 11/02/16 20:29 Piperacillin Sod/ Tazobactam Sod/ Sodium Chloride (Zosyn/Sodium Chloride) 110 ml @ 27.5 mls/hr Q8HR IVPB 10/03/16 22:00 10/10/16 21:59 10/05/16 14:56 Polyethylene Glycol (Miralax) 17 gm HSPRN PRN ORAL Constipation 10/03/16 20:30 11/02/16 20:29 Sodium (0.45%NS w/KCl 20mEq 1000ml) 1,000 ml @ 75 mls/hr [id number] IV 10/04/16 18:00 11/03/16 17:59 10/05/16 06:21 Tamsulosin HCl (Flomax) 0.4 mg BEDTIME ORAL 10/03/16 21:45 11/02/16 21:44 10/04/16 21:56 Vancomycin HCl 1 ea 1 ea DAILY PRN MISC Per rx protocol 10/03/16 20:30 11/02/16 20:29 Vancomycin HCl/ Dextrose (Vancomycin/D5W) 275 ml @ 183.708 mls/hr Q24H IVPB 10/04/16 18:00 10/09/16 17:59 10/04/16 19:50 ARLIN TRIANA Oct 05, 2016 18:08
[2016-10-05] MEDS: Vancomycin 1gm in D5W 275ml IVPB SCH (18:57)
[2016-10-05 20:00] VITALS: BP 137/75
[2016-10-05] MEDS: Atorvastatin 80mg tab ORAL SCH (20:44)
[2016-10-05] MEDS: Tamsulosin 0.4mg cap ORAL SCH (20:44)
--- NOTE | 2016-10-05 22:04 | General Progress Note ---
Assessment/Plan Problem List: (1) Sepsis ICD Codes: A41.9 - Sepsis, unspecified organism SNOMED: 57974207 (2) UTI (urinary tract infection) ICD Codes: N39.0 - Urinary tract infection, site not specified SNOMED: 30352458 Qualifiers: Qualified Codes: N30.00 - Acute cystitis without hematuria (3) HCAP (healthcare-associated pneumonia) ICD Codes: J18.9 - Pneumonia, unspecified organism SNOMED: 451873457 (4) CAD (coronary artery disease) ICD Codes: I25.10 - Atherosclerotic heart disease of [place] coronary artery without angina pectoris SNOMED: 70774238 (5) PVD (peripheral vascular disease) ICD Codes: I73.9 - Peripheral vascular disease, unspecified SNOMED: 227826298 (6) Diabetes mellitus ICD Codes: E11.9 - Type 2 diabetes mellitus without complications SNOMED: 39371923 Qualifiers: (7) CVA (cerebral vascular accident) ICD Codes: I63.9 - Cerebral infarction, unspecified SNOMED: 525971116 (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 ICD Codes: L97.423 - Non-pressure 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 SNOMED: 858362880, 035411393, 060148588 (9) Hypokalemia ICD Codes: E87.6 - Hypokalemia SNOMED: 97267912 (10) Hypomagnesemia ICD Codes: E83.42 - Hypomagnesemia SNOMED: 185470982 (11) Hypernatremia ICD Codes: E87.0 - Hyperosmolality and hypernatremia SNOMED: 39233722 Assessment/Plan Appreciate ID and pulm rec's Cont empiric vanco and zosyn (10/03-) mIVFs F/u blood cultures F/u urine culture-->100K GNR Swallow eval Mucinex BID Duonebs ATC and PRN Cont SNF meds GAYLA PT/OT Wound care DVT Prophylaxis: SCD, HSQ Code Status: DNR/DNI Hospital Classification Declaration: Based on this initial evaluation, and depending on the patient's clinical course, I anticipate that this patient will require hospitalization for 2-3 days for sepsis, HCAP, UTI and close respiratory /hemodynamic monitoring. Disposition: Once the patient is stable to leave the hospital, I anticipate the patient will likely be discharged to the following environment: back to SNF I spent 38 minutes on this patient's case, and >50% was dedicated to counseling and/or care coordination. Discussed with patient/family, nursing staff, SW/CM, pulm, ID regarding clinical status, treatment course, and disposition planning. D/w pulm re pneumonia. D/w ID re abx Time of note may not reflect time of encounter. Subjective Date patient seen: Oct 05, 2016 Time patient seen: 15:00 ROS Limited/Unobtainable: Yes Constitutional: Reports: weakness HEENT: Reports: no symptoms Cardiovascular: Reports: no symptoms Respiratory: Reports: no symptoms Gastrointestinal/Abdominal: Reports: no symptoms Genitourinary: Reports: no symptoms Neurologic/Psychiatric: Reports: no symptoms Endocrine: Reports: no symptoms Hematologic/Lymphatic: Reports: no symptoms Allergies: Coded Allergies: No Known Allergies (Unverified , 07/01/16) Subjective WBC down to 10K K still low at 2.7 Afebrile Pt doing ok. Appetite still poor. Denies f/c, n/v, d/c, chest pain, SOB Objective Last 24 Hour Vital Signs Date Time Temp Pulse Resp B/P Pulse Ox O2 Delivery O2 Flow Rate FiO2 10/05/16 20:44 89 137/75 10/05/16 20:00 97.7 94 18 137/75 96 Room Air 10/05/16 18:55 89 20 98 Room Air 21 10/05/16 18:44 90 20 98 Room Air 10/05/16 16:05 97.7 89 20 149/81 96 Room Air 10/05/16 13:30 90 18 98 Room Air 10/05/16 13:25 92 20 97 Room Air 10/05/16 11:53 97.6 93 21 108/49 98 Room Air 10/05/16 10:35 125/61 10/05/16 10:31 76 125/61 10/05/16 08:15 98.3 76 20 125/61 95 Room Air 10/05/16 07:35 82 18 95 Room Air 21 10/05/16 07:30 76 20 95 Room Air 21 10/05/16 04:00 96.8 81 20 109/60 93 Room Air 10/05/16 00:46 Room Air 10/05/16 00:45 Room Air 10/04/16 23:45 97.0 99 18 116/58 94 Room Air Intake and Output 10/04/16 10/05/16 19:00 07:00 Intake Total 707.5 ml 927.416 ml Balance 707.5 ml 927.416 ml Intake Oral 680 ml IV Total 27.5 ml 927.416 ml # Voids 4 2 Laboratory Tests 10/05/16 08:15: White Blood Count 10.0, Red Blood Count 3.00L, Hemoglobin 8.7L, Hematocrit 27.9L , Mean Corpuscular Volume 93, Mean Corpuscular Hemoglobin 29.0, Mean Corpuscular Hemoglobin Concent 31.2L, Red Cell Distribution Width 15.4H, Platelet Count 291, Mean Platelet Volume 7.1, Neutrophils (%) (Auto) 80.2H, Lymphocytes (%) (Auto) 11.8L, Monocytes (%) (Auto) 4.8, Eosinophils (%) (Auto) 2.6, Basophils (%) (Auto) 0.6, Sodium Level 147H, Potassium Level 2.7*L, Chloride Level 105, Carbon Dioxide Level 25, Anion Gap 17H, Blood Urea Nitrogen 9, Creatinine 0.7, Estimat Glomerular Filtration Rate , Glucose Level 88, Calcium Level 8.9, Phosphorus Level 2.7, Magnesium Level 2.1 Height (Feet): 5 Height (Inches): 3.00 Weight (Pounds): 120 Objective General: alert, cooperative, no distress, appears stated age Head: normocephalic, without obvious abnormality, atraumatic Eyes: conjunctivae/corneas clear. PERRL, EOM's intact Throat: lips, mucosa, and tongue normal. MMM Neck: supple, symmetrical, trachea midline, and no JVD Lungs: clear to auscultation bilaterally Heart: regular rate and rhythm, S1, S2 normal, no murmur, click, rub or gallop Abdomen: soft, non-tender, non-distended, bowel sounds normal; no masses or organomegaly Extremities: extremities normal, atraumatic, no cyanosis or edema Pulses: 2+ and symmetric Skin: skin color, texture, turgor normal; no rashes or lesions Neurologic: grossly normal, no focal deficits Bharat Castle M.D. Oct 05, 2016 22:04
[2016-10-06] VITALS: BP 121/70
[2016-10-06] MEDS: Gentamicin 0.3% Opth Soln 5ml BOTH EYES SCH ×5 (00:04→23:20)
--- NOTE | 2016-10-06 00:16 | Consultation ---
DATE OF CONSULTATION: 10/05/2016 INFECTIOUS DISEASE CONSULTATION CONSULTING PHYSICIAN: Monique Nielson M.D. ATTENDING PHYSICIAN: Jacinda Lozano M.D. I was asked by Dr. Nicholson to see this patient. REASON FOR CONSULTATION: Gram-negative UTI, pneumonia, sepsis, leukocytosis, and fevers. CHIEF COMPLAINT: The patient's chief complaint coming in is pneumonia. HISTORY OF PRESENT ILLNESS: This is an 81-year-old male who overall is a very poor historian, is arousable and responsive. The patient presents with congestion and shortness of breath. The patient was noted to have pneumonia on chest x-ray. The patient also had a significantly positive urinalysis and also has a Gram-negative UTI with sepsis and pneumonia. Infectious Disease consultation was requested for antibiotic management. The patient will be continued on vancomycin and Zosyn. Final urine cultures and sputum cultures are pending. Notes were reviewed. Case was discussed with Dr. Nicholson. REVIEW OF SYSTEMS: Constitutional: The patient denies generalized weakness and fatigue. Head and neck: No head pain or neck pain. Cardiac: No chest pain at present. Gastrointestinal: No nausea, vomiting, or diarrhea. Genitourinary: No Heart. Pulmonary: He has mild congestion and shortness of breath, but no significant secretions or hemoptysis. Skin: Multiple wounds noted. Neurological: No seizure activity, generalized weakness, or fatigue. No fever or chills. PAST MEDICAL HISTORY: The patient's past medical history includes the following. The patient has a past medical history of CAD. He has a history of diabetes. He has a history of CVA and weakness and anemia. He has a history of diabetes and hypertension. He has a history of peripheral vascular disease and history of CAD and non-STEMI. He has a history of GERD. He has a history of ALEX to LAD, history of prostate abscess in the past, and history of bacteremia prostatitis. Please see medical history in the medical order. ALLERGIES: He has no known drug allergies. FAMILY HISTORY: Per records, no mention of exposure to tuberculosis or cancer. SOCIAL HISTORY: Per records, no mention of smoking, alcohol, or drug abuse. MEDICATIONS: Upon reviewing the MAR, he is on the following medications. He is on Zosyn, vancomycin. He is on IV fluids. He is on Plavix, Zestril, multivitamins, and NovoLog insulin. He is on albuterol, heparin, docusate, insulin, and atorvastatin eye drops. He is on bisacodyl, magnesium hydroxide, Zofran, acetaminophen, and lorazepam. Please see past medical history and medications in medical order. PHYSICAL EXAMINATION: GENERAL: Lethargic, weak, he is arousable. VITAL SIGNS: Temperature is 97.7, pulse rate 89, respiratory rate 20, blood pressure 149/81, and saturation 96%. Pulse rate has been as high as 100. HEAD AND NECK: Oral exam, no thrush. Eye exam, no icterus. Normocephalic. No facial droop. No neck stiffness. HEART: Regular. No gallop or murmur. No frictional rub. ABDOMEN: Soft. Positive bowel sounds. Nontender. LUNGS: Bilateral rhonchi and rales. SKIN: No rash or dermatitis. He has multiple wounds, reviewed. MUSCULOSKELETAL: No effusion or contractures. Legs are without cellulitis. PERIPHERAL VASCULAR: Wounds are noted. RECTAL: Deferred. GENITOURINARY: No Heart. LINES: Line sites without phlebitis. NEUROLOGIC: , responsive. LABORATORY DATA: Laboratory data is as follows: UA with 3+ leukocyte esterase and moderate bacteria and 10 to 15 white blood cells. White count 10.0, hemoglobin 8.7, and count is high at 15.5. Creatinine is 0.7. Blood culture is negative. Urine culture is growing 100,000 gram-negative organisms. Chest x-ray shows right infrahilar possible infiltrate. ASSESSMENT AND PLAN: 1. The patient has Gram-negative urinary tract infection with sepsis and leukocytosis and systemic inflammatory response syndrome criteria. The patient has possible aspiration and healthcare-acquired pneumonia. Possible infiltrate is seen on the chest x-ray in the right infrahilar area. At this time, we will continue vancomycin and Zosyn, this will cover Gram-negative urinary tract infection and sepsis and also aspiration pneumonia, Methicillin-resistant Staphylococcus aureus, and Gram-negative pneumonia. Continue antibiotics. Check for urine culture, sputum culture, labs, and followup chest x-ray. 2. The patient has multiple wounds, I do not think this is the source of sepsis. Continue local wound care protocol. Consider wound care evaluation, which has been done actually. Wound consultation has been done. 3. Diabetes. 4. Hypertension. 5. pyelonephritis. 6. Hyperlipidemia. 7. Cerebrovascular accident. 8. Weakness. 9. Angioedema. 10. Peripheral vascular disease. 11. Coronary artery disease. 12. Non-ST elevation myocardial infarction. 13. History of drug-eluting stent x3 to the left anterior descending. 14. History of prostatitis. 15. History of prostate abscess. 16. History of parotitis. 17. Anemia. 18. Watch creatinine and antibiotics. 19. MAR was noted. 20. Case was discussed with RN. 21. Notes were reviewed. 22. Case was discussed with Dr. Nicholson. 23. Family history is noncontributory. 24. Social history is negative. 25. Allergies are negative. Monique Nielson M.D. DR: BEAR JOB#: [id number] CC:
[2016-10-06] MEDS: DuoNeb 0.5-3(2.5)mg/3ml neb HHN SCH ×6 (00:57→19:15)
[2016-10-06 04:00] VITALS: BP 126/72
[2016-10-06] MEDS: Piperacillin/Tazobactam 3.375 GM in NS 110 ML IVPB SCH (05:27)
[2016-10-06] MEDS: NovoLOG Insulin Flexpen SUBQ SCH ×4 (06:07→21:52)
[2016-10-06 06:43] LABS: HEMOLYSIS 11; IRON 42 ug/dL (59-158); TOTAL IRON BINDING CAPACITY 90 ug/dL (250-400)
[2016-10-06 08:00] VITALS: BP 91/47
[2016-10-06 08:00] LABS: FERRITIN 964 ng/mL (10-230)
[2016-10-06 10:00] LABS: BASOPHILS % (AUTO) 0.5 % (0.0-2.0); EOSINOPHILS % (AUTO) 2.3 % (0.0-3.0); LYMPHOCYTES % (AUTO) 11.1 % (20.0-45.0); MEAN CORPUSCULAR HEMOGLOBIN 29.8 PG (27.0-31.0); MEAN CORPUSCULAR HGB CONC 31.8 G/DL (32.0-36.0); MEAN CORPUSCULAR VOLUME 94 FL (80-99); MEAN PLATELET VOLUME 6.9 FL (6.5-10.1); PLATELET COUNT 278 K/UL (150-450); RED BLOOD COUNT 3.27 M/UL (4.70-6.10); RED CELL DISTRIBUTION WIDTH 15.6 % (11.6-14.8); WHITE BLOOD COUNT 10.3 K/UL (4.8-10.8)
[2016-10-06 10:12] LABS: ANION GAP 15 (5-15); CALCIUM 9.1 mg/dL (8.6-10.2); CARBON DIOXIDE 22 mEQ/L (20-30); CHLORIDE 107 mEQ/L (98-107); CREATININE 0.7 mg/dL (0.7-1.2); HEMOLYSIS 1; MAGNESIUM 1.9 mg/dL (1.7-2.5); PHOSPHORUS 2.5 mg/dL (2.5-4.8); POTASSIUM 4.6 mEQ/L (3.4-4.9); SODIUM 144 mEQ/L (135-145)
[2016-10-06] MEDS: guaiFENesin ER 600mg tab ORAL SCH ×2 (10:14→18:23)
[2016-10-06] MEDS: Metoprolol 25mg tab ORAL SCH ×2 (10:14→21:00)
[2016-10-06] MEDS: Docusate 100mg cap ORAL SCH ×2 (10:14→21:51)
[2016-10-06] MEDS: Aspirin EC 81mg tab ORAL SCH (10:14)
[2016-10-06] MEDS: Lisinopril 10mg tab ORAL SCH (10:15)
[2016-10-06] MEDS: Heparin 5000 units/ml inj SUBQ SCH ×2 (10:19→21:53)
[2016-10-06] MEDS: 1/2NS w/KCl 20mEq 1000ml 1,000 ML IV SCH ×2 (10:21→23:20)
[2016-10-06] MEDS ORDERED: 1/2 NS 1000ml IV ONE (11:25)
[2016-10-06] MEDS ORDERED: Tubing IV Secondary IV ONE (11:25)
[2016-10-06 12:00] VITALS: BP 85/54
--- NOTE | 2016-10-06 12:30 | Pulmonology Progress Note ---
Assessment/Plan Assessment/Plan ASSESSMENT sepsis possible HCAP UTI with Pseudomonas CAD with hx of NSTEMI PVD DM Hx of CVA L heel ischemic ulcer with necrosis e/lyte imbalance: hypo Mg, hypo K HTN anemia dysphagia PLAN OF CARE [facility] floor IVF abx, ID follows blood cx preliminary negative, urine cx + Pseudomonas, sputum cx not collected Fup with CXR prior CXR with Right infrahilar possible infiltrate, swallow eval with evidence of moderate dysphagia diet as recommended by ST for quality of life strict aspiration precaution 1 to 1 feeding O2 HHN prn DVT prophylaxis continue ASA ,statin, Plavix BP management with ZACHERY and BB BS management with SS of insulin wound care as per wound nurse recommendations SNF meds resumed bowel regimen PT/OT Mg and K stable after replacement, anemia workup with low iron and high ferritin case discussed and evaluated by supervising physician Subjective Allergies: Coded Allergies: No Known Allergies (Unverified , 07/01/16) Subjective leukocytosis resolved , afebrile on RA sat stable K stable after replacement HH at baseline, with some trend up Objective Last 24 Hour Vital Signs Date Time Temp Pulse Resp B/P Pulse Ox O2 Delivery O2 Flow Rate FiO2 10/06/16 10:15 91/47 10/06/16 10:14 100 91/47 10/06/16 08:00 97.3 100 20 91/47 96 Room Air 10/06/16 07:31 87 20 98 Room Air 10/06/16 07:26 98 20 98 Room Air 10/06/16 04:00 97.0 86 18 126/72 96 Room Air 10/06/16 01:18 86 20 98 Room Air 10/06/16 00:57 76 20 97 Room Air 21 10/06/16 00:00 97.0 83 18 121/70 96 Room Air 10/05/16 20:44 89 137/75 10/05/16 20:00 97.7 94 18 137/75 96 Room Air 10/05/16 18:55 89 20 98 Room Air 21 10/05/16 18:44 90 20 98 Room Air 21 10/05/16 16:05 97.7 89 20 149/81 96 Room Air 10/05/16 13:30 90 18 98 Room Air 21 10/05/16 13:25 92 20 97 Room Air 21 Intake and Output 10/05/16 10/06/16 19:00 07:00 Intake Total 1397.5 ml 1071.208 ml Balance 1397.5 ml 1071.208 ml Intake Oral 360 ml IV Total 1037.5 ml 1071.208 ml # Voids 5 1 # Bowel Movements 1 Objective General Appearance: no acute distress, awake,weak, responsive, elderly male HEENT: normocephalic, atraumatic, anicteric Respiratory/Chest: lungs clear - with moderate air entry , no respiratory distress Cardiovascular: normal rate, regular rhythm, no JVD Abdomen: normal bowel sounds, soft, non tender Extremities: no edema, pedal pulses normal Skin: other - L heel ulcer Neurologic/Psychiatric: abnormal gait -/bedridden, alert, responsive Musculoskeletal: atrophy - BLE Microbiology Date/Time Source Procedure Growth Status 10/03/16 16:20 Blood Blood Culture - Preliminary NO GROWTH AFTER 48 HOURS Resulted 10/03/16 16:15 Blood Blood Culture - Preliminary NO GROWTH AFTER 48 HOURS Resulted 10/03/16 16:35 Urine,Clean Catch Urine Culture - Final Pseudomonas Aeruginosa Complete Laboratory Tests 10/06/16 05:10: White Blood Count 10.3, Red Blood Count 3.27L, Hemoglobin 9.7L, Hematocrit 30.6L , Mean Corpuscular Volume 94, Mean Corpuscular Hemoglobin 29.8, Mean Corpuscular Hemoglobin Concent 31.8L, Red Cell Distribution Width 15.6H, Platelet Count 278, Mean Platelet Volume 6.9, Neutrophils (%) (Auto) 82.0H, Lymphocytes (%) (Auto) 11.1L, Monocytes (%) (Auto) 4.0, Eosinophils (%) (Auto) 2.3, Basophils (%) (Auto) 0.5, Sodium Level 144, Potassium Level 4.6#, Chloride Level 107, Carbon Dioxide Level 22, Anion Gap 15, Blood Urea Nitrogen 7, Creatinine 0.7, Estimat Glomerular Filtration Rate , Glucose Level 70L, Calcium Level 9.1, Phosphorus Level 2.5, Magnesium Level 1.9, Iron Level 42L, Total Iron Binding Capacity 90L, Percent Iron Saturation 47, Unsaturated Iron Binding 48L, Ferritin 964H, Vitamin B12 Level 787, Folate [Pending] Current Medications Medications (Trade) Dose Ordered Sig/Jose Armando Route PRN Reason Start Time Stop Time Status Last Admin Dose Admin Acetaminophen (Tylenol) 650 mg Q6H PRN ORAL Mild Pain/Temp > 100.5 10/03/16 20:30 11/02/16 20:29 Albuterol/ Ipratropium (DuoNeb 0.5-3(2.5)mg/3ml) 3 ml Q4H PRN HHN Shortness of Breath 10/03/16 20:30 10/08/16 20:29 Albuterol/ Ipratropium (DuoNeb 0.5-3(2.5)mg/3ml) 3 ml Q6HR HHN 10/04/16 00:00 10/09/16 00:00 10/06/16 07:26 Aspirin (Ecotrin) 81 mg DAILY ORAL 10/04/16 09:00 11/03/16 08:59 10/05/16 10:31 Atorvastatin Calcium (Lipitor) 80 mg BEDTIME ORAL 10/03/16 21:45 11/02/16 21:44 10/05/16 20:44 Bisacodyl (Dulcolax) 10 mg DAILYPRN PRN ORAL Constipation 10/03/16 20:30 11/02/16 20:29 Bisacodyl (Dulcolax) 10 mg HSPRN PRN RECTAL Constipation 10/03/16 20:30 11/02/16 20:29 Clopidogrel Bisulfate (Plavix) 75 mg DAILY ORAL 10/04/16 09:00 11/03/16 08:59 10/06/16 10:14 Dextrose STAT PRN IV Hypoglycemia 10/04/16 00:45 11/03/16 00:44 Docusate Sodium (Colace) 100 mg EVERY 12 HOURS ORAL 10/03/16 21:45 11/02/16 21:44 10/06/16 10:14 Gentamicin Sulfate (Garamycin 0.3% Opt Soln) 1 drop Q6HR BOTH EYES 10/03/16 21:45 10/10/16 21:44 10/06/16 05:26 Guaifenesin 600 mg 600 mg TWICE A DAY ORAL 10/03/16 21:45 11/02/16 21:44 10/05/16 17:54 Heparin Sodium (Porcine) (Heparin 5000 units/ml) 5,000 units EVERY 12 HOURS SUBQ 10/03/16 21:45 11/02/16 21:44 10/06/16 10:19 Insulin Aspart (NovoLOG) BEFORE MEALS AND HS SUBQ 10/04/16 06:30 11/03/16 06:29 10/05/16 20:47 Latanoprost (Xalatan) 1 drop BEDTIME BOTH EYES 10/03/16 21:45 11/02/16 21:44 10/05/16 20:44 Lisinopril (Zestril) 10 mg DAILY ORAL 10/04/16 09:00 11/03/16 08:59 10/06/16 10:15 Lorazepam (Ativan) 0.5 mg Q6H PRN ORAL anxiety/agitation 10/03/16 20:30 10/10/16 20:29 Magnesium Hydroxide (Mom) 30 ml DAILY PRN ORAL Constipation 10/03/16 20:30 11/02/16 20:29 Magnesium Hydroxide (Mom) 30 ml HSPRN PRN ORAL Constipation at bedtime 10/03/16 20:30 11/02/16 20:29 Metoprolol Tartrate (Lopressor) 12.5 mg Q12HR ORAL 10/03/16 21:45 11/02/16 21:44 10/06/16 10:14 Multivitamins (Multivitamins) 1 tab DAILY ORAL 10/04/16 09:00 11/03/16 08:59 10/06/16 10:14 Ondansetron HCl (Zofran) 4 mg Q6H PRN IVP Nausea & Vomiting 10/03/16 20:30 11/02/16 20:29 Ondansetron HCl (Zofran) 4 mg Q6H PRN ORAL Nausea & Vomiting 10/03/16 20:30 11/02/16 20:29 Piperacillin Sod/ Tazobactam Sod/ Sodium Chloride (Zosyn/Sodium Chloride) 110 ml @ 27.5 mls/hr Q8HR IVPB 10/03/16 22:00 10/10/16 21:59 10/06/16 05:27 Polyethylene Glycol (Miralax) 17 gm HSPRN PRN ORAL Constipation 10/03/16 20:30 11/02/16 20:29 Sodium (0.45%NS w/KCl 20mEq 1000ml) 1,000 ml @ 75 mls/hr [id number] IV 10/04/16 18:00 11/03/16 17:59 10/06/16 10:21 Tamsulosin HCl (Flomax) 0.4 mg BEDTIME ORAL 10/03/16 21:45 11/02/16 21:44 10/05/16 20:44 Vancomycin HCl 1 ea 1 ea DAILY PRN MISC Per rx protocol 10/03/16 20:30 11/02/16 20:29 Vancomycin HCl/ Dextrose (Vancomycin/D5W) 275 ml @ 183.708 mls/hr Q24H IVPB 10/04/16 18:00 10/09/16 17:59 10/05/16 18:57 Kit ([place])Joanna NP Oct 06, 2016 12:29
--- NOTE | 2016-10-06 13:50 | General Progress Note ---
Assessment/Plan Problem List: (1) Sepsis ICD Codes: A41.9 - Sepsis, unspecified organism SNOMED: 44304308 (2) UTI (urinary tract infection) ICD Codes: N39.0 - Urinary tract infection, site not specified SNOMED: 56784787 Qualifiers: Qualified Codes: N30.00 - Acute cystitis without hematuria (3) HCAP (healthcare-associated pneumonia) ICD Codes: J18.9 - Pneumonia, unspecified organism SNOMED: 134238124 (4) CAD (coronary artery disease) ICD Codes: I25.10 - Atherosclerotic heart disease of [place] coronary artery without angina pectoris SNOMED: 62179938 (5) PVD (peripheral vascular disease) ICD Codes: I73.9 - Peripheral vascular disease, unspecified SNOMED: 801462167 (6) Diabetes mellitus ICD Codes: E11.9 - Type 2 diabetes mellitus without complications SNOMED: 22518982 Qualifiers: (7) CVA (cerebral vascular accident) ICD Codes: I63.9 - Cerebral infarction, unspecified SNOMED: 158723351 (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 ICD Codes: L97.423 - Non-pressure 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 SNOMED: 588601904, 607977453, 672095486 (9) Hypokalemia ICD Codes: E87.6 - Hypokalemia SNOMED: 71034971 (10) Hypomagnesemia ICD Codes: E83.42 - Hypomagnesemia SNOMED: 831951169 (11) Hypernatremia ICD Codes: E87.0 - Hyperosmolality and hypernatremia SNOMED: 16490473 Status: stable Assessment/Plan Appreciate ID and pulm rec's Start cefepime (10/06-) s/p vanco and zosyn (10/03-10/06) mIVFs w/ KCl F/u blood cultures F/u urine culture-->100K pseudmonas Swallow eval Mucinex BID Duonebs ATC and PRN Cont SNF meds GAYLA PT/OT Wound care DVT Prophylaxis: SCD, HSQ Code Status: DNR/DNI Hospital Classification Declaration: Based on this initial evaluation, and depending on the patient's clinical course, I anticipate that this patient will require hospitalization for 1-2 days for sepsis, HCAP, UTI and close respiratory /hemodynamic monitoring. Disposition: Once the patient is stable to leave the hospital, I anticipate the patient will likely be discharged to the following environment: back to SNF I spent 38 minutes on this patient's case, and >50% was dedicated to counseling and/or care coordination. Discussed with patient/family, nursing staff, SW/CM, pulm, ID regarding clinical status, treatment course, and disposition planning. D/w pulm re pneumonia. D/w ID re abx Time of note may not reflect time of encounter. Subjective Date patient seen: Oct 06, 2016 Time patient seen: 13:50 ROS Limited/Unobtainable: Yes Constitutional: Reports: weakness HEENT: Reports: no symptoms Cardiovascular: Reports: no symptoms Respiratory: Reports: no symptoms Gastrointestinal/Abdominal: Reports: no symptoms Genitourinary: Reports: no symptoms Neurologic/Psychiatric: Reports: no symptoms Endocrine: Reports: no symptoms Hematologic/Lymphatic: Reports: no symptoms Allergies: Coded Allergies: No Known Allergies (Unverified , 07/01/16) Subjective WBC down to 10K K improved Afebrile Pt doing ok. Appetite slightly better. Denies f/c, n/v, d/c, chest pain, SOB Objective Last 24 Hour Vital Signs Date Time Temp Pulse Resp B/P Pulse Ox O2 Delivery O2 Flow Rate FiO2 10/06/16 12:00 97.5 87 20 85/54 97 Room Air 10/06/16 10:15 91/47 10/06/16 10:14 100 91/47 10/06/16 08:00 97.3 100 20 91/47 96 Room Air 10/06/16 07:31 87 20 98 Room Air 10/06/16 07:26 98 20 98 Room Air 10/06/16 04:00 97.0 86 18 126/72 96 Room Air 10/06/16 01:18 86 20 98 Room Air 10/06/16 00:57 76 20 97 Room Air 10/06/16 00:00 97.0 83 18 121/70 96 Room Air 10/05/16 20:44 89 137/75 10/05/16 20:00 97.7 94 18 137/75 96 Room Air 10/05/16 18:55 89 20 98 Room Air 10/05/16 18:44 90 20 98 Room Air 21 10/05/16 16:05 97.7 89 20 149/81 96 Room Air Intake and Output 10/05/16 10/06/16 19:00 07:00 Intake Total 1397.5 ml 1071.208 ml Balance 1397.5 ml 1071.208 ml Intake Oral 360 ml IV Total 1037.5 ml 1071.208 ml # Voids 5 1 # Bowel Movements 1 Laboratory Tests 10/06/16 05:10: White Blood Count 10.3, Red Blood Count 3.27L, Hemoglobin 9.7L, Hematocrit 30.6L , Mean Corpuscular Volume 94, Mean Corpuscular Hemoglobin 29.8, Mean Corpuscular Hemoglobin Concent 31.8L, Red Cell Distribution Width 15.6H, Platelet Count 278, Mean Platelet Volume 6.9, Neutrophils (%) (Auto) 82.0H, Lymphocytes (%) (Auto) 11.1L, Monocytes (%) (Auto) 4.0, Eosinophils (%) (Auto) 2.3, Basophils (%) (Auto) 0.5, Sodium Level 144, Potassium Level 4.6#, Chloride Level 107, Carbon Dioxide Level 22, Anion Gap 15, Blood Urea Nitrogen 7, Creatinine 0.7, Estimat Glomerular Filtration Rate , Glucose Level 70L, Calcium Level 9.1, Phosphorus Level 2.5, Magnesium Level 1.9, Iron Level 42L, Total Iron Binding Capacity 90L, Percent Iron Saturation 47, Unsaturated Iron Binding 48L, Ferritin 964H, Vitamin B12 Level 787, Folate [Pending] Height (Feet): 5 Height (Inches): 3.00 Weight (Pounds): 120 Objective General: alert, cooperative, no distress, appears stated age Head: normocephalic, without obvious abnormality, atraumatic Eyes: conjunctivae/corneas clear. PERRL, EOM's intact Throat: lips, mucosa, and tongue normal. MMM Neck: supple, symmetrical, trachea midline, and no JVD Lungs: clear to auscultation bilaterally Heart: regular rate and rhythm, S1, S2 normal, no murmur, click, rub or gallop Abdomen: soft, non-tender, non-distended, bowel sounds normal; no masses or organomegaly Extremities: extremities normal, atraumatic, no cyanosis or edema Pulses: 2+ and symmetric Skin: skin color, texture, turgor normal; no rashes or lesions Neurologic: grossly normal, no focal deficits Bharat Castle M.D. Oct 06, 2016 13:50
[2016-10-06] MEDS: Cefepime HCl 1 GM in D5W 55 ML IVPB SCH ×2 (15:01→23:20)
[2016-10-06 16:00] VITALS: BP 93/50
[2016-10-06] MEDS ORDERED: DuoNeb 0.5-3(2.5)mg/3ml neb HHN PRN (16:30)
[2016-10-06] MEDS: metroNIDAZOLE 500mg tab ORAL SCH ×2 (18:22→21:51)
[2016-10-06 20:00] VITALS: BP 97/59
[2016-10-06] MEDS: Tamsulosin 0.4mg cap ORAL SCH (21:51)
[2016-10-06] MEDS: Atorvastatin 80mg tab ORAL SCH (21:51)
[2016-10-07] VITALS: BP 118/65
[2016-10-07 04:00] VITALS: BP 106/67
[2016-10-07] MEDS: metroNIDAZOLE 500mg tab ORAL SCH ×3 (06:00→21:34)
[2016-10-07] MEDS: Gentamicin 0.3% Opth Soln 5ml BOTH EYES SCH ×4 (06:00→23:36)
[2016-10-07] MEDS: DuoNeb 0.5-3(2.5)mg/3ml neb HHN SCH ×3 (06:00→19:02)
[2016-10-07] MEDS: NovoLOG Insulin Flexpen SUBQ SCH ×4 (06:03→21:00)
[2016-10-07 08:05] VITALS: BP 102/64
[2016-10-07 08:24] LABS: ANION GAP 13 (5-15); CARBON DIOXIDE 23 mEQ/L (20-30); CHLORIDE 106 mEQ/L (98-107); CREATININE 0.7 mg/dL (0.7-1.2); HEMOLYSIS 0; SODIUM 142 mEQ/L (135-145)
[2016-10-07 08:30] LABS: BASOPHILS % (AUTO) 0.6 % (0.0-2.0); EOSINOPHILS % (AUTO) 3.6 % (0.0-3.0); LYMPHOCYTES % (AUTO) 14.8 % (20.0-45.0); MEAN CORPUSCULAR HEMOGLOBIN 30.1 PG (27.0-31.0); MEAN CORPUSCULAR HGB CONC 32.5 G/DL (32.0-36.0); MEAN CORPUSCULAR VOLUME 93 FL (80-99); MEAN PLATELET VOLUME 7.2 FL (6.5-10.1); MONOCYTES % (AUTO) 4.3 % (1.0-10.0); NEUTROPHILS % (AUTO) 76.8 % (45.0-75.0); PLATELET COUNT 332 K/UL (150-450); RED BLOOD COUNT 3.13 M/UL (4.70-6.10); RED CELL DISTRIBUTION WIDTH 15.4 % (11.6-14.8); WHITE BLOOD COUNT 9.5 K/UL (4.8-10.8)
[2016-10-07] MEDS: Metoprolol 25mg tab ORAL SCH ×2 (08:37→21:35)
[2016-10-07] MEDS: Lisinopril 10mg tab ORAL SCH (08:37)
[2016-10-07] MEDS: Docusate 100mg cap ORAL SCH ×2 (08:37→21:34)
[2016-10-07] MEDS: Aspirin EC 81mg tab ORAL SCH (08:38)
[2016-10-07] MEDS: guaiFENesin ER 600mg tab ORAL SCH ×2 (08:39→17:45)
[2016-10-07] MEDS: Heparin 5000 units/ml inj SUBQ SCH ×2 (08:50→21:38)
[2016-10-07] MEDS: Cefepime HCl 1 GM in D5W 55 ML IVPB SCH ×2 (09:00→16:57)
[2016-10-07] MEDS ORDERED: NS 550ML IV ONE (09:16)
--- NOTE | 2016-10-07 09:32 | Pulmonology Progress Note ---
Assessment/Plan Assessment/Plan ASSESSMENT sepsis possible HCAP UTI with Pseudomonas CAD with hx of NSTEMI PVD DM Hx of CVA L heel ischemic ulcer with necrosis e/lyte imbalance: hypo Mg, hypo K HTN anemia dysphagia PLAN OF CARE [facility] floor IVF abx, ID follows blood cx preliminary negative, urine cx + Pseudomonas, sputum cx not collected Fup with CXR today prior CXR with Right infrahilar possible infiltrate, swallow eval with evidence of moderate dysphagia diet as recommended by ST for quality of life strict aspiration precaution 1 to 1 feeding O2 HHN prn DVT prophylaxis continue ASA ,statin, Plavix BP management with ZACHERY and BB BS management with SS of insulin wound care as per wound nurse recommendations SNF meds resumed bowel regimen PT/OT Mg and K stable after replacement, anemia workup with low iron and high ferritin case discussed and evaluated by supervising physician Subjective Allergies: Coded Allergies: No Known Allergies (Unverified , 07/01/16) Subjective leukocytosis resolved , afebrile on RA sat stable K stable after replacement HH stable at baseline Objective Last 24 Hour Vital Signs Date Time Temp Pulse Resp B/P Pulse Ox O2 Delivery O2 Flow Rate FiO2 10/07/16 09:20 81 16 97 Room Air 21 10/07/16 08:37 86 102/64 10/07/16 08:37 102/64 10/07/16 08:05 97.0 86 21 102/64 98 Room Air 10/07/16 04:00 97.0 88 18 106/67 90 Room Air 10/07/16 01:00 77 20 96 Room Air 10/07/16 00:53 77 18 96 Room Air 10/07/16 00:00 97.5 83 18 118/65 Room Air 10/06/16 21:00 87 97/59 10/06/16 20:00 97.3 87 20 97/59 95 Room Air 10/06/16 19:20 74 20 100 Room Air 10/06/16 19:11 73 20 96 Room Air 10/06/16 16:00 97.3 71 20 93/50 98 Room Air 10/06/16 13:31 84 20 98 Room Air 10/06/16 13:24 88 20 98 Room Air 10/06/16 12:00 97.5 87 20 85/54 97 Room Air 10/06/16 10:15 91/47 10/06/16 10:14 100 91/47 Intake and Output 10/06/16 10/07/16 19:00 07:00 Intake Total 1020 ml 805 ml Balance 1020 ml 805 ml Intake Oral 120 ml IV Total 900 ml 805 ml # Voids 4 1 # Bowel Movements 2 2 Objective General Appearance: no acute distress, awake,weak, responsive, elderly male HEENT: normocephalic, atraumatic, anicteric Respiratory/Chest: lungs clear - with moderate air entry , no respiratory distress Cardiovascular: normal rate, regular rhythm, no JVD Abdomen: normal bowel sounds, soft, non tender Extremities: no edema, pedal pulses normal Skin: other - L heel ulcer Neurologic/Psychiatric: abnormal gait -/bedridden, alert, responsive Musculoskeletal: atrophy - BLE Laboratory Tests 10/07/16 06:25: White Blood Count 9.5, Red Blood Count 3.13L, Hemoglobin 9.4L, Hematocrit 29.0L , Mean Corpuscular Volume 93, Mean Corpuscular Hemoglobin 30.1, Mean Corpuscular Hemoglobin Concent 32.5, Red Cell Distribution Width 15.4H, Platelet Count 332, Mean Platelet Volume 7.2, Neutrophils (%) (Auto) 76.8H, Lymphocytes (%) (Auto) 14.8L, Monocytes (%) (Auto) 4.3, Eosinophils (%) (Auto) 3.6H, Basophils (%) (Auto) 0.6, Sodium Level 142, Potassium Level 5.0H, Chloride Level 106, Carbon Dioxide Level 23, Anion Gap 13, Blood Urea Nitrogen 8 , Creatinine 0.7, Estimat Glomerular Filtration Rate , Glucose Level 107H, Calcium Level 9.0 Current Medications Medications (Trade) Dose Ordered Sig/Jose Armando Route PRN Reason Start Time Stop Time Status Last Admin Dose Admin Acetaminophen (Tylenol) 650 mg Q6H PRN ORAL Mild Pain/Temp > 100.5 10/03/16 20:30 11/02/16 20:29 10/07/16 08:37 Albuterol/ Ipratropium (DuoNeb 0.5-3(2.5)mg/3ml) 3 ml Q6HR HHN 10/04/16 00:00 10/09/16 00:00 10/07/16 09:22 Albuterol/ Ipratropium 3 ml 3 ml Q4H PRN HHN Shortness of Breath 10/06/16 16:30 10/11/16 23:59 Aspirin (Ecotrin) 81 mg DAILY ORAL 10/04/16 09:00 11/03/16 08:59 10/07/16 08:38 Atorvastatin Calcium (Lipitor) 80 mg BEDTIME ORAL 10/03/16 21:45 11/02/16 21:44 10/06/16 21:51 Bisacodyl (Dulcolax) 10 mg DAILYPRN PRN ORAL Constipation 10/03/16 20:30 11/02/16 20:29 Bisacodyl (Dulcolax) 10 mg HSPRN PRN RECTAL Constipation 10/03/16 20:30 11/02/16 20:29 Cefepime HCl/ Dextrose (Maxipime/D5W) 55 ml @ 110 mls/hr EVERY 12 HOURS IVPB 10/06/16 14:00 10/13/16 13:59 10/06/16 23:20 Clopidogrel Bisulfate (Plavix) 75 mg DAILY ORAL 10/04/16 09:00 11/03/16 08:59 10/07/16 08:37 Dextrose (Dextrose 50%) STAT PRN IV Hypoglycemia 10/04/16 00:45 11/03/16 00:44 Docusate Sodium (Colace) 100 mg EVERY 12 HOURS ORAL 10/03/16 21:45 11/02/16 21:44 10/07/16 08:37 Gentamicin Sulfate (Garamycin 0.3% Opt Sol) 1 drop Q6HR BOTH EYES 10/03/16 21:45 10/10/16 21:44 10/07/16 06:00 Guaifenesin (Mucinex ER) 600 mg TWICE A DAY ORAL 10/03/16 21:45 11/02/16 21:44 10/07/16 08:39 Heparin Sodium (Porcine) (Heparin 5000 units/ml) 5,000 units EVERY 12 HOURS SUBQ 10/03/16 21:45 11/02/16 21:44 10/07/16 08:50 Insulin Aspart (NovoLOG) BEFORE MEALS AND HS SUBQ 10/04/16 06:30 11/03/16 06:29 10/07/16 06:03 Latanoprost (Xalatan) 1 drop BEDTIME BOTH EYES 10/03/16 21:45 11/02/16 21:44 10/06/16 21:51 Lisinopril (Zestril) 10 mg DAILY ORAL 10/04/16 09:00 11/03/16 08:59 10/07/16 08:37 Lorazepam (Ativan) 0.5 mg Q6H PRN ORAL anxiety/agitation 10/03/16 20:30 10/10/16 20:29 10/07/16 08:37 Magnesium Hydroxide (Mom) 30 ml DAILY PRN ORAL Constipation 10/03/16 20:30 11/02/16 20:29 Magnesium Hydroxide (Mom) 30 ml HSPRN PRN ORAL Constipation at bedtime 10/03/16 20:30 11/02/16 20:29 Metoprolol Tartrate (Lopressor) 12.5 mg Q12HR ORAL 10/03/16 21:45 11/02/16 21:44 10/07/16 08:37 Metronidazole (Flagyl) 500 mg Q8HR ORAL 10/06/16 14:00 10/13/16 13:59 10/07/16 06:00 Mirtazapine (Remeron) 15 mg BEDTIME ORAL 10/06/16 21:00 11/05/16 20:59 10/06/16 21:51 Multivitamins (Multivitamins) 1 tab DAILY ORAL 10/04/16 09:00 11/03/16 08:59 10/07/16 08:38 Ondansetron HCl (Zofran) 4 mg Q6H PRN IVP Nausea & Vomiting 10/03/16 20:30 11/02/16 20:29 Ondansetron HCl (Zofran) 4 mg Q6H PRN ORAL Nausea & Vomiting 10/03/16 20:30 11/02/16 20:29 Polyethylene Glycol (Miralax) 17 gm HSPRN PRN ORAL Constipation 10/03/16 20:30 11/02/16 20:29 Tamsulosin HCl (Flomax) 0.4 mg BEDTIME ORAL 10/03/16 21:45 11/02/16 21:44 10/06/16 21:51 Joanna Pantoja NP ([place]) Oct 07, 2016 09:32
[2016-10-07 11:48] VITALS: BP 100/58
[2016-10-07] MEDS ORDERED: DuoNeb 0.5-3(2.5)mg/3ml neb HHN SCH (12:00)
[2016-10-07] MEDS: Ascorbic Acid 500mg tab ORAL SCH (12:25)
--- NOTE | 2016-10-07 12:33 | Infectious Diseases Prog Note ---
Assessment/Plan Assessment/Plan ASSESSMENT AND PLAN: 1. pseudomonas uti with sepsis, aspiration pna/hcap, leukocytosis - sepsis and respiratory status improved - change abx to cefepime and flagyl - sputum culture pending - check labs and chest x-ray f/u - pulmonary treatment - d/w Dr. Nicholson about patient care and abx, can discharge on abx for one week 2. The patient has multiple wounds, I do not think this is the source of sepsis. Continue local wound care protocol. Wound evaluation on case. 3. Diabetes - tx per primary 4. Hypertension - tx per primary 5. hx pyelonephritis. 6. Hyperlipidemia. 7. Cerebrovascular accident. 8. Weakness. 9. Angioedema. 10. Peripheral vascular disease. 11. Coronary artery disease. 12. Non-ST elevation myocardial infarction. 13. History of drug-eluting stent x3 to the left anterior descending. 14. History of prostatitis. 15. History of prostate abscess. 16. History of parotitis. 17. Anemia. 18. Watch creatinine and antibiotics. 19. MAR was noted. 20. Case was discussed with RN. 21. Notes were reviewed. 22. Case was discussed with Dr. Nicholson. 23. Family history is noncontributory. 24. Social history is negative. 25. Allergies are negative. Subjective Constitutional: Reports: fatigue, Denies: fever HEENT: Reports: other - less congestion, Denies: congestion Respiratory: Denies: shortness of breath Breasts: Denies: discharge Cardiovascular: Denies: chest pain Gastrointestinal/Abdominal: Denies: diarrhea, nausea, vomiting Genitourinary: Reports: other - no new Neurologic: Denies: headache Psychiatric: Denies: depression Skin: Denies: rash Hematologic: Denies: bleeding Musculoskeletal: Denies: pain Allergies: Coded Allergies: No Known Allergies (Unverified , 07/01/16) Objective Vital Signs Last 24 Hour Vital Signs Date Time Temp Pulse Resp B/P Pulse Ox O2 Delivery O2 Flow Rate FiO2 10/07/16 11:48 97.2 81 20 100/58 97 Room Air 10/07/16 09:30 89 16 100 Room Air 21 10/07/16 09:20 81 16 97 Room Air 21 10/07/16 08:37 86 102/64 10/07/16 08:37 102/64 10/07/16 08:05 97.0 86 21 102/64 98 Room Air 10/07/16 04:00 97.0 88 18 106/67 90 Room Air 10/07/16 01:00 77 20 96 Room Air 10/07/16 00:53 77 18 96 Room Air 10/07/16 00:00 97.5 83 18 118/65 Room Air 10/06/16 21:00 87 97/59 10/06/16 20:00 97.3 87 20 97/59 95 Room Air 10/06/16 19:20 74 20 100 Room Air 10/06/16 19:11 73 20 96 Room Air 10/06/16 16:00 97.3 71 20 93/50 98 Room Air 10/06/16 13:31 84 20 98 Room Air 10/06/16 13:24 88 20 98 Room Air Height (Feet): 5 Height (Inches): 3.00 Weight (Pounds): 120 General Appearance: no acute distress, other - weak, responsive HEENT: normocephalic, atraumatic, anicteric, mucous membranes moist, PERRL, EOMI, pharynx normal, supple, no JVD Respiratory/Chest: crackles/rales - less, rhonchi - bilaterally - less Cardiovascular: normal rate, regular rhythm, no gallop/murmur, no JVD Abdomen: normal bowel sounds, soft, non tender, no organomegaly, non distended Genitourinary: other - no new Extremities: no cyanosis Skin: no rash Neurologic/Psychiatric: all around patternmaker II-XII grossly normal, alert, responsive, other - generalized weakness but responsiv e Lymphatic: no neck adenopathy Musculoskeletal: no effusion Objective 10/05 chest x-ray: Impression: Right infrahilar possible infiltrate, if real slightly increased from previous study. Findings Evidence of bronchitis changes Microbiology Date/Time Source Procedure Growth Status 10/03/16 16:20 Blood Blood Culture - Preliminary NO GROWTH AFTER 72 HOURS Resulted 10/05/16 21:30 Sputum Gram Stain - Final Resulted 10/05/16 21:30 Sputum Sputum Culture Pending Resulted 10/03/16 16:35 Urine,Clean Catch Urine Culture - Final Pseudomonas Aeruginosa Complete Microbiology Date/Time Source Procedure Growth Status 10/05/16 21:30 Sputum Gram Stain - Final Resulted 10/05/16 21:30 Sputum Sputum Culture Pending Resulted Laboratory Tests Test 10/07/16 06:25 White Blood Count 9.5 K/UL (4.8-10.8) Red Blood Count 3.13 M/UL (4.70-6.10) L Hemoglobin 9.4 G/DL (14.2-18.0) L Hematocrit 29.0 % (42.0-52.0) L Mean Corpuscular Volume 93 FL (80-99) Mean Corpuscular Hemoglobin 30.1 PG (27.0-31.0) Mean Corpuscular Hemoglobin Concent 32.5 G/DL (32.0-36.0) Red Cell Distribution Width 15.4 % (11.6-14.8) H Platelet Count 332 K/UL (150-450) Mean Platelet Volume 7.2 FL (6.5-10.1) Neutrophils (%) (Auto) 76.8 % (45.0-75.0) H Lymphocytes (%) (Auto) 14.8 % (20.0-45.0) L Monocytes (%) (Auto) 4.3 % (1.0-10.0) Eosinophils (%) (Auto) 3.6 % (0.0-3.0) H Basophils (%) (Auto) 0.6 % (0.0-2.0) Sodium Level 142 mEQ/L (135-145) Potassium Level 5.0 mEQ/L (3.4-4.9) H Chloride Level 106 mEQ/L (98-107) Carbon Dioxide Level 23 mEQ/L (20-30) Anion Gap 13 (5-15) Blood Urea Nitrogen 8 mg/dL (7-23) Creatinine 0.7 mg/dL (0.7-1.2) Estimat Glomerular Filtration Rate mL/min (>60) Glucose Level 107 mg/dL (74-106) H Calcium Level 9.0 mg/dL (8.6-10.2) Current Medications Medications (Trade) Dose Ordered Sig/Jose Armando Route PRN Reason Start Time Stop Time Status Last Admin Dose Admin Acetaminophen (Tylenol) 650 mg Q6H PRN ORAL Mild Pain/Temp > 100.5 10/03/16 20:30 11/02/16 20:29 10/07/16 08:37 Albuterol/ Ipratropium (DuoNeb 0.5-3(2.5)mg/3ml) 3 ml Q6HR HHN 10/07/16 12:00 10/12/16 23:59 Albuterol/ Ipratropium 3 ml 3 ml Q4H PRN HHN Shortness of Breath 10/06/16 16:30 10/11/16 23:59 Ascorbic Acid (Vitamin C) 500 mg DAILY ORAL 10/07/16 12:30 11/06/16 12:29 Aspirin (Ecotrin) 81 mg DAILY ORAL 10/04/16 09:00 11/03/16 08:59 10/07/16 08:38 Atorvastatin Calcium (Lipitor) 80 mg BEDTIME ORAL 10/03/16 21:45 11/02/16 21:44 10/06/16 21:51 Bisacodyl (Dulcolax) 10 mg DAILYPRN PRN ORAL Constipation 10/03/16 20:30 11/02/16 20:29 Bisacodyl (Dulcolax) 10 mg HSPRN PRN RECTAL Constipation 10/03/16 20:30 11/02/16 20:29 Cefepime HCl/ Dextrose (Maxipime/D5W) 55 ml @ 110 mls/hr EVERY 12 HOURS IVPB 10/06/16 14:00 10/13/16 13:59 10/06/16 23:20 Clopidogrel Bisulfate (Plavix) 75 mg DAILY ORAL 10/04/16 09:00 11/03/16 08:59 10/07/16 08:37 Dextrose (Dextrose 50%) STAT PRN IV Hypoglycemia 10/04/16 00:45 11/03/16 00:44 Docusate Sodium (Colace) 100 mg EVERY 12 HOURS ORAL 10/03/16 21:45 11/02/16 21:44 10/07/16 08:37 Gentamicin Sulfate (Garamycin 0.3% Opt Soln) 1 drop Q6HR BOTH EYES 10/03/16 21:45 10/10/16 21:44 10/07/16 06:00 Guaifenesin (Mucinex ER) 600 mg TWICE A DAY ORAL 10/03/16 21:45 11/02/16 21:44 10/07/16 08:39 Heparin Sodium (Porcine) (Heparin 5000 units/ml) 5,000 units EVERY 12 HOURS SUBQ 10/03/16 21:45 11/02/16 21:44 10/07/16 08:50 Insulin Aspart (NovoLOG) BEFORE MEALS AND HS SUBQ 10/04/16 06:30 11/03/16 06:29 10/07/16 06:03 Latanoprost (Xalatan) 1 drop BEDTIME BOTH EYES 10/03/16 21:45 11/02/16 21:44 10/06/16 21:51 Lisinopril (Zestril) 10 mg DAILY ORAL 10/04/16 09:00 11/03/16 08:59 10/07/16 08:37 Lorazepam (Ativan) 0.5 mg Q6H PRN ORAL anxiety/agitation 10/03/16 20:30 10/10/16 20:29 10/07/16 08:37 Magnesium Hydroxide (Mom) 30 ml DAILY PRN ORAL Constipation 10/03/16 20:30 11/02/16 20:29 Magnesium Hydroxide (Mom) 30 ml HSPRN PRN ORAL Constipation at bedtime 10/03/16 20:30 11/02/16 20:29 Metoprolol Tartrate (Lopressor) 12.5 mg Q12HR ORAL 10/03/16 21:45 11/02/16 21:44 10/07/16 08:37 Metronidazole (Flagyl) 500 mg Q8HR ORAL 10/06/16 14:00 10/13/16 13:59 10/07/16 06:00 Mirtazapine (Remeron) 15 mg BEDTIME ORAL 10/06/16 21:00 11/05/16 20:59 10/06/16 21:51 Multivitamins (Multivitamins) 1 tab DAILY ORAL 10/04/16 09:00 11/03/16 08:59 10/07/16 08:38 Ondansetron HCl (Zofran) 4 mg Q6H PRN IVP Nausea & Vomiting 10/03/16 20:30 11/02/16 20:29 Ondansetron HCl (Zofran) 4 mg Q6H PRN ORAL Nausea & Vomiting 10/03/16 20:30 11/02/16 20:29 Polyethylene Glycol (Miralax) 17 gm HSPRN PRN ORAL Constipation 10/03/16 20:30 11/02/16 20:29 Tamsulosin HCl (Flomax) 0.4 mg BEDTIME ORAL 10/03/16 21:45 11/02/16 21:44 10/06/16 21:51 ARLIN TRIANA Oct 07, 2016 12:33
[2016-10-07 16:03] VITALS: BP 110/68
--- NOTE | 2016-10-07 18:04 | General Progress Note ---
Assessment/Plan Problem List: (1) Sepsis ICD Codes: A41.9 - Sepsis, unspecified organism SNOMED: 21729083 (2) UTI (urinary tract infection) ICD Codes: N39.0 - Urinary tract infection, site not specified SNOMED: 93257580 Qualifiers: Qualified Codes: N30.00 - Acute cystitis without hematuria (3) HCAP (healthcare-associated pneumonia) ICD Codes: J18.9 - Pneumonia, unspecified organism SNOMED: 381296599 (4) CAD (coronary artery disease) ICD Codes: I25.10 - Atherosclerotic heart disease of [place] coronary artery without angina pectoris SNOMED: 22575976 (5) PVD (peripheral vascular disease) ICD Codes: I73.9 - Peripheral vascular disease, unspecified SNOMED: 986006520 (6) Diabetes mellitus ICD Codes: E11.9 - Type 2 diabetes mellitus without complications SNOMED: 42387256 Qualifiers: (7) CVA (cerebral vascular accident) ICD Codes: I63.9 - Cerebral infarction, unspecified SNOMED: 419589275 (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 ICD Codes: L97.423 - Non-pressure 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 SNOMED: 294776401, 132398841, 581640840 (9) Hypokalemia ICD Codes: E87.6 - Hypokalemia SNOMED: 19664055 (10) Hypomagnesemia ICD Codes: E83.42 - Hypomagnesemia SNOMED: 963677295 (11) Hypernatremia ICD Codes: E87.0 - Hyperosmolality and hypernatremia SNOMED: 54270476 Status: stable Assessment/Plan Appreciate ID and pulm rec's Cont cefepime (10/06-) + flagyl (10/06-) s/p vanco and zosyn (10/03-10/06) mIVFs w/ KCl F/u blood cultures F/u urine culture-->100K pseudomonas Swallow eval Mucinex BID Duonebs ATC and PRN Cont SNF meds GAYLA PT/OT Wound care DC planning, likely back t SNF on 10/08 DVT Prophylaxis: SCD, HSQ Code Status: DNR/DNI Hospital Classification Declaration: Based on this initial evaluation, and depending on the patient's clinical course, I anticipate that this patient will require hospitalization for 1-2 days for sepsis, UTI and close respiratory/ hemodynamic monitoring. Disposition: Once the patient is stable to leave the hospital, I anticipate the patient will likely be discharged to the following environment: back to SNF I spent 38 minutes on this patient's case, and >50% was dedicated to counseling and/or care coordination. Discussed with patient/family, nursing staff, SW/CM, pulm, ID regarding clinical status, treatment course, and disposition planning. D/w pulm re pneumonia. D/w ID re abx Time of note may not reflect time of encounter. Subjective Date patient seen: Oct 07, 2016 Time patient seen: 12:00 ROS Limited/Unobtainable: Yes Constitutional: Reports: weakness HEENT: Reports: no symptoms Cardiovascular: Reports: no symptoms Respiratory: Reports: no symptoms Gastrointestinal/Abdominal: Reports: no symptoms Genitourinary: Reports: no symptoms Neurologic/Psychiatric: Reports: no symptoms Endocrine: Reports: no symptoms Hematologic/Lymphatic: Reports: no symptoms Allergies: Coded Allergies: No Known Allergies (Unverified , 07/01/16) Subjective WBC down to 9K K improved Afebrile Pt doing ok. Appetite slightly better. Denies f/c, n/v, d/c, chest pain, SOB Objective Last 24 Hour Vital Signs Date Time Temp Pulse Resp B/P Pulse Ox O2 Delivery O2 Flow Rate FiO2 10/07/16 16:03 97.5 84 20 110/68 98 Room Air 10/07/16 13:44 Room Air 10/07/16 13:00 82 20 96 Room Air 10/07/16 11:48 97.2 81 20 100/58 97 Room Air 10/07/16 08:37 86 102/64 10/07/16 08:37 102/64 10/07/16 08:05 97.0 86 21 102/64 98 Room Air 10/07/16 07:01 89 16 100 Room Air 10/07/16 07:00 81 16 97 Room Air 10/07/16 04:00 97.0 88 18 106/67 90 Room Air 10/07/16 01:00 77 20 96 Room Air 10/07/16 00:53 77 18 96 Room Air 10/07/16 00:00 97.5 83 18 118/65 Room Air 10/06/16 21:00 87 97/59 10/06/16 20:00 97.3 87 20 97/59 95 Room Air 10/06/16 19:20 74 20 100 Room Air 10/06/16 19:11 73 20 96 Room Air Intake and Output 10/06/16 10/07/16 19:00 07:00 Intake Total 1020 ml 805 ml Balance 1020 ml 805 ml Intake Oral 120 ml IV Total 900 ml 805 ml # Voids 4 1 # Bowel Movements 2 2 Laboratory Tests 10/07/16 06:25: White Blood Count 9.5, Red Blood Count 3.13L, Hemoglobin 9.4L, Hematocrit 29.0L , Mean Corpuscular Volume 93, Mean Corpuscular Hemoglobin 30.1, Mean Corpuscular Hemoglobin Concent 32.5, Red Cell Distribution Width 15.4H, Platelet Count 332, Mean Platelet Volume 7.2, Neutrophils (%) (Auto) 76.8H, Lymphocytes (%) (Auto) 14.8L, Monocytes (%) (Auto) 4.3, Eosinophils (%) (Auto) 3.6H, Basophils (%) (Auto) 0.6, Sodium Level 142, Potassium Level 5.0H, Chloride Level 106, Carbon Dioxide Level 23, Anion Gap 13, Blood Urea Nitrogen 8 , Creatinine 0.7, Estimat Glomerular Filtration Rate , Glucose Level 107H, Calcium Level 9.0 Height (Feet): 5 Height (Inches): 3.00 Weight (Pounds): 120 Objective General: alert, cooperative, no distress, appears stated age Head: normocephalic, without obvious abnormality, atraumatic Eyes: conjunctivae/corneas clear. PERRL, EOM's intact Throat: lips, mucosa, and tongue normal. MMM Neck: supple, symmetrical, trachea midline, and no JVD Lungs: clear to auscultation bilaterally Heart: regular rate and rhythm, S1, S2 normal, no murmur, click, rub or gallop Abdomen: soft, non-tender, non-distended, bowel sounds normal; no masses or organomegaly Extremities: extremities normal, atraumatic, no cyanosis or edema Pulses: 2+ and symmetric Skin: skin color, texture, turgor normal; no rashes or lesions Neurologic: grossly normal, no focal deficits Bharat CastleD. Oct 07, 2016 18:04
[2016-10-07 20:00] VITALS: BP 121/66
[2016-10-07] MEDS: Tamsulosin 0.4mg cap ORAL SCH (21:34)
[2016-10-07] MEDS: Atorvastatin 80mg tab ORAL SCH (21:34)
[2016-10-07] MEDS: Betadine 4oz Bottle TOPIC SCH (22:33)
[2016-10-08] VITALS: BP 103/60
[2016-10-08] MEDS: DuoNeb 0.5-3(2.5)mg/3ml neb HHN SCH ×4 (01:00→19:00)
[2016-10-08 04:00] VITALS: BP 118/74
[2016-10-08] MEDS: Gentamicin 0.3% Opth Soln 5ml BOTH EYES SCH ×3 (06:00→18:19)
[2016-10-08] MEDS: metroNIDAZOLE 500mg tab ORAL SCH ×2 (06:00→14:13)
[2016-10-08] MEDS: NovoLOG Insulin Flexpen SUBQ SCH ×3 (06:30→16:30)
[2016-10-08 07:19] LABS: BASOPHILS % (AUTO) 0.7 % (0.0-2.0); EOSINOPHILS % (AUTO) 3.6 % (0.0-3.0); LYMPHOCYTES % (AUTO) 9.7 % (20.0-45.0); MEAN CORPUSCULAR HEMOGLOBIN 30.7 PG (27.0-31.0); MEAN CORPUSCULAR HGB CONC 33.4 G/DL (32.0-36.0); MEAN CORPUSCULAR VOLUME 92 FL (80-99); MEAN PLATELET VOLUME 7.4 FL (6.5-10.1); PLATELET COUNT 351 K/UL (150-450); RED CELL DISTRIBUTION WIDTH 15.8 % (11.6-14.8); WHITE BLOOD COUNT 10.3 K/UL (4.8-10.8)
[2016-10-08 07:31] LABS: ANION GAP 14 (5-15); CARBON DIOXIDE 24 mEQ/L (20-30); CHLORIDE 103 mEQ/L (98-107); CREATININE 0.6 mg/dL (0.7-1.2); HEMOLYSIS 3; POTASSIUM 3.3 mEQ/L (3.4-4.9); SODIUM 141 mEQ/L (135-145)
[2016-10-08 08:15] VITALS: BP 113/64
[2016-10-08] MEDS: Docusate 100mg cap ORAL SCH (09:00)
--- NOTE | 2016-10-08 09:36 | Diagnostic Imaging Report ---
Indication: Dyspnea Comparison: 10/05/16 A single view chest radiograph was obtained. Findings: Possible right perihilar infiltrate again demonstrated. Heart size remains normal. Impression: No change. Questionable right perihilar infiltrate. Please correlate clinically
[2016-10-08] MEDS: Aspirin EC 81mg tab ORAL SCH (09:47)
[2016-10-08] MEDS: Metoprolol 25mg tab ORAL SCH (09:47)
[2016-10-08] MEDS: Ascorbic Acid 500mg tab ORAL SCH (09:47)
[2016-10-08] MEDS: Lisinopril 10mg tab ORAL SCH (09:48)
[2016-10-08] MEDS: Betadine 4oz Bottle TOPIC SCH (09:48)
[2016-10-08] MEDS: Heparin 5000 units/ml inj SUBQ SCH (09:48)
[2016-10-08] MEDS ORDERED: KCl 10% 40mEq/30ml liquid ORAL ONE (12:00)
[2016-10-08 12:08] VITALS: BP 115/69
[2016-10-08] MEDS ORDERED: FLAGYL500 MG ORAL (14:07)
[2016-10-08] MEDS ORDERED: CEFEPIME-D1 GM/50 ML IVPB (14:07)
[2016-10-08] MEDS ORDERED: MARINOL2.5 MG ORAL (14:10)
--- NOTE | 2016-10-08 14:55 | Pulmonology Progress Note ---
Assessment/Plan Problems: (1) Sepsis (2) UTI (urinary tract infection) (3) Diabetes mellitus (4) CAD (coronary artery disease) (5) PVD (peripheral vascular disease) (6) [facility] Assessment/Plan improving K supplement ashlee in sputum Pseudomonas in Urine wound care tolerating diet dc planning Subjective ROS Limited/Unobtainable: No Constitutional: Reports: no symptoms HEENT: Repors: no symptoms Cardiovascular: Reports: no symptoms Gastrointestinal/Abdominal: Reports: no symptoms Allergies: Coded Allergies: No Known Allergies (Unverified , 07/01/16) Objective Last 24 Hour Vital Signs Date Time Temp Pulse Resp B/P Pulse Ox O2 Delivery O2 Flow Rate FiO2 10/08/16 13:40 85 16 97 Room Air 10/08/16 13:39 95 18 93 Room Air 10/08/16 12:08 98.6 92 20 115/69 95 Room Air 10/08/16 09:48 113/64 10/08/16 09:47 96 113/64 10/08/16 08:15 97.9 96 20 113/64 93 Room Air 10/08/16 07:30 Room Air 10/08/16 07:30 Room Air 10/08/16 04:00 98.1 55 20 118/74 94 Room Air 10/08/16 01:09 Room Air 10/08/16 01:09 Room Air 10/08/16 00:00 97.2 90 20 103/60 97 Room Air 10/07/16 21:35 96 121/66 10/07/16 20:00 97.2 96 18 121/66 97 Room Air 10/07/16 19:09 81 16 98 Room Air 10/07/16 19:04 77 18 97 Room Air 10/07/16 16:03 97.5 84 20 110/68 98 Room Air Intake and Output 10/07/16 10/08/16 19:00 07:00 Intake Total 110 ml 240 ml Balance 110 ml 240 ml Intake Oral 0 ml 240 ml IV Total 110 ml # Voids 2 4 # Bowel Movements 2 3 General Appearance: WD/WN HEENT: normocephalic, anicteric Respiratory/Chest: chest wall non-tender, lungs clear Cardiovascular: normal peripheral pulses, normal rate Abdomen: normal bowel sounds, soft, non tender Genitourinary: normal external genitalia Extremities: no cyanosis Skin: no rash Neurologic/Psychiatric: pediatric ophthalmologist II-XII grossly normal Lymphatic: no neck adenopathy Musculoskeletal: normal muscle bulk Microbiology Date/Time Source Procedure Growth Status 10/05/16 21:30 Sputum Gram Stain - Final Resulted 10/05/16 21:30 Sputum Culture - Preliminary Ashlee Albicans Resulted Laboratory Tests 10/08/16 06:15: White Blood Count 10.3, Red Blood Count 3.30L, Hemoglobin 10.1L, Hematocrit 30.3L, Mean Corpuscular Volume 92, Mean Corpuscular Hemoglobin 30.7, Mean Corpuscular Hemoglobin Concent 33.4, Red Cell Distribution Width 15.8H, Platelet Count 351, Mean Platelet Volume 7.4, Neutrophils (%) (Auto) 82.0H, Lymphocytes (%) (Auto) 9.7L, Monocytes (%) (Auto) 4.0, Eosinophils (%) (Auto) 3.6H, Basophils (%) (Auto) 0.7, Sodium Level 141, Potassium Level 3.3L, Chloride Level 103, Carbon Dioxide Level 24, Anion Gap 14, Blood Urea Nitrogen 7 , Creatinine 0.6L, Estimat Glomerular Filtration Rate , Glucose Level 93, Hemoglobin A1c 5.7, Calcium Level 9.0 Current Medications Medications (Trade) Dose Ordered Sig/Jose Armando Route PRN Reason Start Time Stop Time Status Last Admin Dose Admin Acetaminophen (Tylenol) 650 mg Q6H PRN ORAL Mild Pain/Temp > 100.5 10/03/16 20:30 11/02/16 20:29 10/07/16 08:37 Albuterol/ Ipratropium (DuoNeb 0.5-3(2.5)mg/3ml) 3 ml Q4H PRN HHN Shortness of Breath 10/06/16 16:30 10/11/16 23:59 Albuterol/ Ipratropium 3 ml 3 ml Q6HRT HHN 10/07/16 19:00 10/12/16 11:59 10/08/16 13:39 Ascorbic Acid (Vitamin C) 500 mg DAILY ORAL 10/07/16 12:30 11/06/16 12:29 10/07/16 12:25 Aspirin (Ecotrin) 81 mg DAILY ORAL 10/04/16 09:00 11/03/16 08:59 10/07/16 08:38 Atorvastatin Calcium (Lipitor) 80 mg BEDTIME ORAL 10/03/16 21:45 11/02/16 21:44 10/07/16 21:34 Bisacodyl (Dulcolax) 10 mg DAILYPRN PRN ORAL Constipation 10/03/16 20:30 11/02/16 20:29 Bisacodyl (Dulcolax) 10 mg HSPRN PRN RECTAL Constipation 10/03/16 20:30 11/02/16 20:29 Cefepime HCl/ Dextrose (Maxipime/D5W) 55 ml @ 110 mls/hr Q24H IVPB 10/08/16 17:00 10/15/16 16:59 Clopidogrel Bisulfate (Plavix) 75 mg DAILY ORAL 10/04/16 09:00 11/03/16 08:59 10/07/16 08:37 Dextrose (Dextrose 50%) STAT PRN IV Hypoglycemia 10/04/16 00:45 11/03/16 00:44 Docusate Sodium (Colace) 100 mg EVERY 12 HOURS ORAL 10/03/16 21:45 11/02/16 21:44 10/07/16 21:34 Gentamicin Sulfate (Garamycin 0.3% Opt Sol) 1 drop Q6HR BOTH EYES 10/03/16 21:45 10/10/16 21:44 10/08/16 12:00 Heparin Sodium (Porcine) (Heparin 5000 units/ml) 5,000 units EVERY 12 HOURS SUBQ 10/03/16 21:45 11/02/16 21:44 10/07/16 21:38 Insulin Aspart (NovoLOG) BEFORE MEALS AND HS SUBQ 10/04/16 06:30 11/03/16 06:29 10/07/16 06:03 Latanoprost (Xalatan) 1 drop BEDTIME BOTH EYES 10/03/16 21:45 11/02/16 21:44 10/07/16 21:34 Lisinopril (Zestril) 10 mg DAILY ORAL 10/04/16 09:00 11/03/16 08:59 10/07/16 08:37 Lorazepam (Ativan) 0.5 mg Q6H PRN ORAL anxiety/agitation 10/03/16 20:30 10/10/16 20:29 10/07/16 08:37 Magnesium Hydroxide (Mom) 30 ml DAILY PRN ORAL Constipation 10/03/16 20:30 11/02/16 20:29 Magnesium Hydroxide (Mom) 30 ml HSPRN PRN ORAL Constipation at bedtime 10/03/16 20:30 11/02/16 20:29 Metoprolol Tartrate (Lopressor) 12.5 mg Q12HR ORAL 10/03/16 21:45 11/02/16 21:44 10/07/16 21:35 Metronidazole (Flagyl) 500 mg Q8HR ORAL 10/06/16 14:00 10/13/16 13:59 10/08/16 14:13 Mirtazapine (Remeron) 15 mg BEDTIME ORAL 10/06/16 21:00 11/05/16 20:59 10/07/16 21:34 Multivitamins (Multivitamins) 1 tab DAILY ORAL 10/04/16 09:00 11/03/16 08:59 10/07/16 08:38 Ondansetron HCl (Zofran) 4 mg Q6H PRN IVP Nausea & Vomiting 10/03/16 20:30 11/02/16 20:29 Ondansetron HCl (Zofran) 4 mg Q6H PRN ORAL Nausea & Vomiting 10/03/16 20:30 11/02/16 20:29 Polyethylene Glycol (Miralax) 17 gm HSPRN PRN ORAL Constipation 10/03/16 20:30 11/02/16 20:29 Povidone Iodine (Betadine Ava) 1 applic QHS TOPIC 10/08/16 21:00 11/06/16 22:59 Tamsulosin HCl (Flomax) 0.4 mg BEDTIME ORAL 10/03/16 21:45 11/02/16 21:44 10/07/16 21:34 SRIDHAR SALEEM Oct 08, 2016 14:54
[2016-10-08 16:11] VITALS: BP 102/73
[2016-10-08] MEDS ORDERED: Cefepime 1gm in D5W 55ml IVPB SCH (17:00)
[2016-10-08] MEDS ORDERED: NS 275ml ONE (20:24)
[2016-10-08] MEDS ORDERED: Betadine 4oz Bottle TOPIC SCH (21:00)
--- NOTE | 2016-10-08 23:35 | Discharge Summary ---
Bharat Castle M.D. 10/08/16 2335: Discharge Summary Hospital Course Date of Admission Oct 03, 2016 at 17:16 Date of Discharge Oct 08, 2016 at 20:25 Admitting Diagnosis PNEUMONIA HPI Zach Diaz is a 81 year old male who was admitted on Oct 03, 2016 at 17: 16 for Pneumonia Discharge Medications New Medications: Cefepime Hcl/D5w (Cefepime-Dextrose 1 Gm/50 Ml) 1 Gm/50 Ml Piggyback 1 GM IVPB Q24H for 7 Days, BAG Dronabinol* (Marinol*) 2.5 Mg Capsule 2.5 MG ORAL BID for 30 Days, #60 CAP 0 Refills Metronidazole* (Flagyl*) 500 Mg Tablet 500 MG ORAL Q8HR for 7 Days, #21 TAB Continued Medications: Acetaminophen* (Tylenol Extra Strength*) 500 Mg Tablet 650 MG ORAL Q6H PRN for Mild Pain/Temp > 100.5, TAB 0 Refills Aspirin* (Aspir 81*) 81 Mg Tablet.dr 81 MG ORAL DAILY, TAB Atorvastatin Calcium* (Lipitor*) 80 Mg Tablet 80 MG ORAL BEDTIME, TAB Bisacodyl* (Dulcolax*) 5 Mg Tablet.dr 10 MG ORAL ONCE PRN for Constipation, #4 TAB 0 Refills Gentamicin Sulfate* (Gentak*) 5 Ml Drops 1 DROP BOTH EYES Q6HR, #1 DROP 0 Refills Insulin Aspart (Novolog Flexpen) 100 Unit/1 Ml Insuln.pen 0 UNITS SUBQ BEFORE MEALS AND HS for 30 Days, EA Latanoprost* (Xalatan*) 2.5 Ml Drops 1 DROP BOTH EYES BEDTIME, ML 0 Refills Lisinopril* (Lisinopril*) 10 Mg Tablet 10 MG ORAL DAILY, TAB Lorazepam* (Ativan*) 0.5 Mg Tablet 0.5 MG ORAL HS, TAB Magnesium Hydroxide* (Milk Of Magnesia*) 2,400 Mg/10 Ml Oral.susp 30 ML ORAL DAILY PRN for Constipation, ML Metoprolol Tartrate (Metoprolol Tartrate) 25 Mg Tablet 12.5 MG ORAL Q12HR for 30 Days, TAB Multivitamins* (Multivitamins*) 1 Each Tablet 1 TAB ORAL DAILY, TAB 0 Refills Ondansetron* (Zofran*) 4 Mg Tablet 4 MG ORAL Q6H PRN for Nausea & Vomiting, TAB Tamsulosin Hcl (Tamsulosin Hcl*) 0.4 Mg Cap.er.24h 0.4 MG ORAL BEDTIME, CAP Discontinued Medications: Mirtazapine* (Remeron*) 15 Mg Tablet 15 MG ORAL BEDTIME, TAB Discharge Condition Upon Discharge: stable Discharge Disposition Patient was discharged to SNF/Subacute Facility(03) Discharge Diagnoses: Pantoja (Vanchtein)Joanna PAGEANT DIRECTOR 10/17/16 1216: Discharge Summary Discharge Medications New Medications: Cefepime Hcl/D5w (Cefepime-Dextrose 1 Gm/50 Ml) 1 Gm/50 Ml Piggyback 1 GM IVPB Q24H for 7 Days, BAG Dronabinol* (Marinol*) 2.5 Mg Capsule 2.5 MG ORAL BID for 30 Days, #60 CAP 0 Refills Metronidazole* (Flagyl*) 500 Mg Tablet 500 MG ORAL Q8HR for 7 Days, #21 TAB Continued Medications: Acetaminophen* (Tylenol Extra Strength*) 500 Mg Tablet 650 MG ORAL Q6H PRN for Mild Pain/Temp > 100.5, TAB 0 Refills Aspirin* (Aspir 81*) 81 Mg Tablet.dr 81 MG ORAL DAILY, TAB Atorvastatin Calcium* (Lipitor*) 80 Mg Tablet 80 MG ORAL BEDTIME, TAB Bisacodyl* (Dulcolax*) 5 Mg Tablet.dr 10 MG ORAL ONCE PRN for Constipation, #4 TAB 0 Refills Gentamicin Sulfate* (Gentak*) 5 Ml Drops 1 DROP BOTH EYES Q6HR, #1 DROP 0 Refills Insulin Aspart (Novolog Flexpen) 100 Unit/1 Ml Insuln.pen 0 UNITS SUBQ BEFORE MEALS AND HS for 30 Days, EA Latanoprost* (Xalatan*) 2.5 Ml Drops 1 DROP BOTH EYES BEDTIME, ML 0 Refills Lisinopril* (Lisinopril*) 10 Mg Tablet 10 MG ORAL DAILY, TAB Lorazepam* (Ativan*) 0.5 Mg Tablet 0.5 MG ORAL HS, TAB Magnesium Hydroxide* (Milk Of Magnesia*) 2,400 Mg/10 Ml Oral.susp 30 ML ORAL DAILY PRN for Constipation, ML Metoprolol Tartrate (Metoprolol Tartrate) 25 Mg Tablet 12.5 MG ORAL Q12HR for 30 Days, TAB Multivitamins* (Multivitamins*) 1 Each Tablet 1 TAB ORAL DAILY, TAB 0 Refills Ondansetron* (Zofran*) 4 Mg Tablet 4 MG ORAL Q6H PRN for Nausea & Vomiting, TAB Tamsulosin Hcl (Tamsulosin Hcl*) 0.4 Mg Cap.er.24h 0.4 MG ORAL BEDTIME, CAP Discontinued Medications: Mirtazapine* (Remeron*) 15 Mg Tablet 15 MG ORAL BEDTIME, TAB Discharge Condition Upon Discharge: stable Discharge Disposition patient was discharged to SNF Discharge Diagnoses: (1) Sepsis (2) Pseudomonas urinary tract infection (3) HCAP (healthcare-associated pneumonia) (4) CAD (coronary artery disease) (5) NSTEMI (non-ST elevated myocardial infarction) (6) PVD (peripheral vascular disease) (7) Diabetes mellitus (8) CVA (cerebral vascular accident) (9) HTN (hypertension) (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 Oct 08, 2016 23:35 Kit ([facility] NP Oct 17, 2016 12:16
== END 2016-10-08 20:25 | DRG 871 ==
LOC: EDBD 16:04 → EMR 17:00 → EDBEDREQ 17:13 → 4E 17:16 → EDBEDREQ 20:41
DX: A41.9 Sepsis, unspecified organism (principal); J18.9 Pneumonia, unspecified organism; E87.0 Hyperosmolality and hypernatremia; L89.152 Pressure ulcer of sacral region, stage 2; E11.51 Type 2 diabetes mellitus with diabetic peripheral angiopathy without gangrene; R13.10 Dysphagia, unspecified; N39.0 Urinary tract infection, site not specified; E83.42 Hypomagnesemia; F03.90 Unspecified dementia, unspecified severity, without behavioral disturbance, psychotic disturbance, mood disturbance, and anxiety; L89.021 Pressure ulcer of left elbow, stage 1; I25.10 Atherosclerotic heart disease of native coronary artery without angina pectoris; K21.9 Gastro-esophageal reflux disease without esophagitis; E87.6 Hypokalemia; I10 Essential (primary) hypertension; I25.2 Old myocardial infarction; Z66 Do not resuscitate; L98.499 Non-pressure chronic ulcer of skin of other sites with unspecified severity; D64.9 Anemia, unspecified; Z98.61 Coronary angioplasty status; E78.5 Hyperlipidemia, unspecified; L89.620 Pressure ulcer of left heel, unstageable; L89.619 Pressure ulcer of right heel, unspecified stage; L89.011 Pressure ulcer of right elbow, stage 1; L89.890 Pressure ulcer of other site, unstageable; Z79.4 Long term (current) use of insulin; Z79.82 Long term (current) use of aspirin; B96.5 Pseudomonas (aeruginosa) (mallei) (pseudomallei) as the cause of diseases classified elsewhere; Y95 Nosocomial condition; Z86.73 Personal history of transient ischemic attack (TIA), and cerebral infarction without residual deficits
CPT/HCPCS: 36415; 71010; 80048; 80053; 81003; 82550; 82607; 82728; 82746; 82962; 83036; 83540; 83550; 83605; 83735; 83880; 84100; 84484; 85007; 85025; 85610; 85730; 87040; 87070; 87081; 87086; 87181; 87205; 93005; 94640; 94664; A4246; J1815; J7620; J8499